=== PATIENT | female | born 1960 | race Caucasian/White ===

== ENCOUNTER 2016-07-28 18:59 | Emergency (ER) | payer MEDICAID, OTHER ==
[2016-07-28 19:07] VITALS: BP 146/67
--- NOTE | 2016-07-28 19:27 | ER Document Report ---
Addendum entered and electronically signed by BARRY PIERRE NP 07/28/16 19:27 : Course - Re-evaluation Re-evalutation: 07/28/16 19:27 I have greeted and performed a rapid initial assessment of this patient. A comprehensive ED assessment, evaluation of the patient, analysis of test results , and completion of the medical decision making process will be contacted by additional ED providers. - Vital Signs Vital signs: Temp Pulse Resp BP Pulse Ox 97.4 F 81 20 146/67 H 96 07/28/16 19:05 07/28/16 19:05 07/28/16 19:05 07/28/16 19:05 07/28/16 19:05 Original Note: ED Medical Screen (RME) - General Stated Complaint: SHOULDER PAIN,NECK PAIN Time seen by provider: 19:24 Mode of Arrival: Ambulatory Information source: Patient Notes: 56-year-old female with chronic neck and bilateral shoulder pain for 7 years is complaining that the pain is getting worse for 2 months. The pain is much worse today. It's her pain at home with ibuprofen. She can't take it anymore. She has been for her to [place] pain [facility] for this chronic pain but they won't take her because of her insurance. She was in the emergency department in May and May for pain treatment. [facility] is her PCP. TRAVEL OUTSIDE OF THE [place] IN LAST 30 DAYS: No - Related Data Allergies/Adverse Reactions: acetaminophen [From Tylenol] Adverse Reaction (Mild, Verified 05/13/16 23:52) Nausea Past Medical History - Past Medical History Cardiac Medical History: Reports: Hx Congestive Heart Failure, Hx Hypercholesterolemia, Hx Hypertension, Hx Pulmonary Embolism - Not with the last hospitalization. CT was negative. Pulmonary Medical History: Reports: Hx Bronchitis, Hx COPD, Hx Intubation, Hx Respiratory Failure Denies: Hx Asthma, Hx Tuberculosis Neurological Medical History: Reports: Hx Seizures Endocrine Medical History: Reports: Hx Diabetes Mellitus Type 1, Hx Diabetes Mellitus Type 2, Hx Hypothyroidism GI Medical History: Reports: Hx Gastroesophageal Reflux Disease Musculoskeltal Medical History: Reports Hx Musculoskeletal Trauma Psychiatric Medical History: Denies: Hx Depression Past Surgical History: Reports: Hx Appendectomy, Hx Coronary Stent, Hx Orthopedic Surgery - L 1st toe amputation, R ankle recon, R elbow pin, L rotator cuff, Hx Tonsillectomy, Other - Multiple I&D's, Colonoscopy. Denies: Hx Hysterectomy - Immunizations Hx Diphtheria, Pertussis, Tetanus Vaccination: Yes Physical Exam - Vital signs Vitals: Temp Pulse Resp BP Pulse Ox 97.4 F 81 20 146/67 H 96 07/28/16 19:05 07/28/16 19:05 07/28/16 19:05 07/28/16 19:05 07/28/16 19:05 Course - Vital Signs Vital signs: Temp Pulse Resp BP Pulse Ox 97.4 F 81 20 146/67 H 96 07/28/16 19:05 07/28/16 19:05 07/28/16 19:05 07/28/16 19:05 07/28/16 19:05
--- NOTE | 2016-07-28 21:32 | ER Document Report ---
HPI - HPI Patient complains to provider of: chronic shoulder pain Pain Level: 5 Context: 56-year-old female with chronic neck and bilateral shoulder pain for 7 years is complaining that the pain is getting worse for 2 months. The pain is much worse today. She has stopped taking OTC NSAIDS because they do not work but she has not been following up with [facility] for pain management while she gets new health insurance that will be accepted by [place] [facility] clinics. She has been for her to [place] [facility] for this chronic pain but they won't take her because of her insurance. She was in the emergency department in May and May for pain treatment. [facility] is her PCP. She is due to follow up with surgery for evaluation of rotator cuff repair bilaterally. No new injury or trauma Otherwise past medical history significant for high blood pressure and diabetes. - CARDIOVASCULAR Cardiovascular: DENIES: Chest pain - REPRODUCTIVE Reproductive: DENIES: : - DERM Skin Color: Normal Past Medical History - General Information source: Patient - Social History Smoking Status: Smoker,Current Status Unk Family History: Reviewed & Not Pertinent, CAD, DM, Hypertension - Past Medical History Cardiac Medical History: Reports: Hx Congestive Heart Failure, Hx Hypercholesterolemia, Hx Hypertension, Hx Pulmonary Embolism - Not with the last hospitalization. CT was negative. Pulmonary Medical History: Reports: Hx Bronchitis, Hx COPD, Hx Intubation, Hx Respiratory Failure Denies: Hx Asthma, Hx Tuberculosis Neurological Medical History: Reports: Hx Seizures Endocrine Medical History: Reports: Hx Diabetes Mellitus Type 1, Hx Diabetes Mellitus Type 2, Hx Hypothyroidism Renal/ Medical History: Denies: Hx Peritoneal Dialysis GI Medical History: Reports: Hx Gastroesophageal Reflux Disease Musculoskeltal Medical History: Reports Hx Musculoskeletal Trauma Psychiatric Medical History: Denies: Hx Depression Past Surgical History: Reports: Hx Appendectomy, Hx Coronary Stent, Hx Orthopedic Surgery - L 1st toe amputation, R ankle recon, R elbow pin, L rotator cuff, Hx Tonsillectomy, Other - Multiple I&D's, Colonoscopy. Denies: Hx Hysterectomy - Immunizations Hx Diphtheria, Pertussis, Tetanus Vaccination: Yes Vertical Provider Document - CONSTITUTIONAL Agree With Documented VS: Yes General Appearance: WD/WN, No Apparent Distress - INFECTION CONTROL TRAVEL OUTSIDE OF THE [place] IN LAST 30 DAYS: No - HEENT HEENT: Atraumatic, Normocephalic - RESPIRATORY O2 Sat by Pulse Oximetry: 96 - CARDIOVASCULAR Pulses: Normal: Radial - MUSCULOSKELETAL/EXTREMETIES Musculoskeletal/Extremeties: MAEW, Tender - Tense trapezius muscles bilaterally. Otherwise no evidence of tenderness to C-spine this process palpation, No Edema. negative: Edema, Eccymosis Notes: Has full range of motion of her neck. Limited range of motion of bilateral arms. The patient states that she has torn rotator cuff that she has yet to have operated on strength 5 out of 5 bilaterally. - NEURO Level of Consciousness: Awake, Alert, Appropriate Motor/Sensory: No Motor Deficit, No Sensory Deficit Course - Re-evaluation Re-evalutation: 07/28/16 22:52 Patient is a 56-year-old female who is becoming well-known to our emergency department from multiple visits for pain medications and she moved down here May. Patient currently is hemodynamically stable, no acute distress and afebrile. There is no new injury or trauma. Patient states that she has stopped taking [id number] medications because she feels like they do not work at all. She has not followed up with her primary care provider for other pain management options. Given that she does not have any new injury to the area no indication for additional imaging at this time. Patient educated on the benefit of nonsteroidal anti-inflammatory medications for the treatment of her joints and muscles. Encouraged her to follow up with [facility] for appropriate [facility]. - Vital Signs Vital signs: Temp Pulse Resp BP Pulse Ox 97.4 F 81 20 146/67 H 96 07/28/16 19:05 07/28/16 19:05 07/28/16 19:05 07/28/16 19:05 07/28/16 19:05 Discharge - Discharge Clinical Impression: Chronic neck and back pain Condition: Good Disposition: HOME, SELF-CARE Additional Instructions: LOW BACK PAIN: Three out of every four people will have an episode of disabling back pain during their lifetime. Most commonly the pain is due to straining of the muscles and ligaments in the low back. Usual treatment includes: (1) Rest on a firm surface. Avoid lying on your stomach. (2) Ice pack the painful area. After a few days, gentle heat may be used intermittently to relax the area, or ice packs can be continued. (3) Medication may be needed -- muscle relaxers and antiinflammatory medicines are commonly used. (4) As the back improves, exercises are prescribed to strengthen the back and abdominal muscles. Your doctor will advise you on the proper care for your back at each stage in your recovery. You may be better in a few days -- or healing may take several weeks. If new symptoms of a "herniated disc" (radiation of pain, numbness, or tingling down the back of the leg or weakness in the leg) occur, you should be re-examined. Further testing may be necessary. MUSCLE RELAXERS: Muscle relaxing medications are usually prescribed for acute muscle spasm or injury to the neck and back. They are often combined with antiinflammatory pain medication for increased relief. You may stop the muscle relaxer when the pain and stiffness have improved. Start the medication again if spasms recur. Muscle relaxers may cause drowsiness, especially with the first dose. Do not operate machinery or drive while under the effects of the medication. Most muscle relaxers last up to 24 hours. Do not combine the medication with alcohol. ICE PACKS: Apply ice packs frequently against the painful area. Many different schedules are recommended, such as "20 minutes on, 20 minutes off" or "one hour ice, two hours rest." If you need to work, you may need to go longer between ice treatments. You should plan to have the area ice packed AT LEAST one fourth of the time. The ice should be applied over the wrap, tape, or splint, or over a layer of cloth -- not directly against the skin. Some ice bags have a built-in cloth and can be put directly on the skin. WARM PACKS: After approximately two days, apply gentle heat (such as a heating pad or hot water bottle) for about 20 to 30 minutes about every two hours -- at least four times daily. Warmth and elevation will help you make a more rapid recovery , and will ease the pain considerably. Do not use HOT heat, and never apply heat for longer than 30 minutes. The continuous heat can invisibly damage skin and muscles -- even when no burn is seen on the surface. Damaged muscles can make you MORE sore. FOLLOW-UP CARE: If you have been referred to a physician for follow-up care, call the physician s office for an appointment as you were instructed or within the next two days. If you experience worsening or a significant change in your symptoms, notify the physician immediately or return to the Emergency Department at any time for re-evaluation. Prescriptions: Meloxicam [Mobic 15 mg Tablet] 15 mg PO DAILY #30 tablet Forms: Elevated Blood Pressure [facility] [NO [facility]AL MD] - Follow up as needed
== END 2016-07-28 21:32 | disposition home or self-care (01) ==
LOC: ER 18:59
DX: G89.29 Other chronic pain (principal); M54.2 Cervicalgia; M25.511 Pain in right shoulder; M25.512 Pain in left shoulder; M54.9 Dorsalgia, unspecified; I10 Essential (primary) hypertension; J44.9 Chronic obstructive pulmonary disease, unspecified; E11.9 Type 2 diabetes mellitus without complications; Z98.61 Coronary angioplasty status; Z86.711 Personal history of pulmonary embolism; Z98.890 Other specified postprocedural states
CPT/HCPCS: 99283

== ENCOUNTER 2016-09-30 00:48 | Observation (INO) | payer MEDICAID, OTHER ==
[2016-09-30] MEDS ORDERED: NORMAL SALINE 1000 ML 1,000 ML IV ONE (05:07)
[2016-09-30 05:52] LABS: ABSOLUTE BASOPHILS # (AUTO) 0.1 10^3/uL (0.0-0.2); ABSOLUTE EOSINOPHILS # (AUTO) 0.1 10^3/uL (0.0-0.6); ABSOLUTE LYMPHOCYTES (AUTO) 1.3 10^3/uL (0.5-4.7); ABSOLUTE MONOCYTES (AUTO) 0.5 10^3/uL (0.1-1.4); ABSOLUTE NEUT (AUTO) 7.1 10^3/uL (1.7-8.2); BASOPHILS % (AUTO) 0.7 % (0-2); HEMATOCRIT 36.1 % (36.0-47.0); HEMOGLOBIN 12.2 g/dL (12.0-15.5); HGB HCT DIFFERENCE 0.5; LYMPHOCYTES % (AUTO) 14.2 % (13-45); MEAN CORPUSCULAR HEMOGLOBIN 29.6 pg (27.0-33.4); MEAN CORPUSCULAR HGB CONC 33.7 g/dL (32.0-36.0); MEAN CORPUSCULAR VOLUME 88 fl (80-97); MONOCYTES % (AUTO) 5.1 % (3-13); RED BLOOD COUNT 4.11 10^6/uL (3.72-5.28); RED CELL DISTRIBUTION WIDTH 16.4 % (11.5-14.0)
[2016-09-30] MEDS ORDERED: MORPHINE SULFATE 10 MG/ML INJ IV ONE (05:53)
[2016-09-30] MEDS ORDERED: ONDANSETRON HCL INJ/PF 4 MG/2 ML SDV IV ONE (05:53)
[2016-09-30 05:58] LABS: PROTHROMBIN TIME 13.1 SEC (11.4-15.4)
[2016-09-30 06:15] LABS: ALANINE AMINOTRANSFERASE 50 U/L (9-52); ALBUMIN 3.6 g/dL (3.5-5.0); ALKALINE PHOSPHATASE 154 U/L (38-126); ANION GAP 15 (5-19); ASPARTATE AMINO TRANSFERASE 30 U/L (14-36); BILIRUBIN,DIRECT 0.3 mg/dL (0.0-0.4); BILIRUBIN,TOTAL 0.7 mg/dL (0.2-1.3); BLOOD UREA NITROGEN 15 mg/dL (7-20); CALCIUM 9.4 mg/dL (8.4-10.2); CARBON DIOXIDE 21 mmol/L (22-30); CHLORIDE 97 mmol/L (98-107); CREATININE RESULT 0.63 mg/dL (0.52-1.25); POTASSIUM 4.2 mmol/L (3.6-5.0); SODIUM 133.2 mmol/L (137-145); TOTAL PROTEIN 6.4 g/dL (6.3-8.2)
[2016-09-30 06:26] LABS: GLUCOSE 470 mg/dL (75-110)
[2016-09-30] MEDS ORDERED: INSULIN REG, HUMAN 100 UNIT/ML 3 ML VIAL (PYX) SUBCUT ONE (06:32)
--- NOTE | 2016-09-30 06:33 | ER Document Report ---
ED Skin Rash/Insect Bite/Abscs - General Chief Complaint: Abscess Stated Complaint: ABSCESS Mode of Arrival: Ambulatory Information source: Patient Notes: 56-year-old female presents to the emergency department complaining of tender swollen area to right suprapubic area over the last two days. Reports hx of abscesses with similar symptoms in the past. Denies fever, n/v, chest pain, sob. TRAVEL OUTSIDE OF THE [place] IN LAST 30 DAYS: No - HPI Patient complains to provider of: Tender/swollen area Onset/Duration: Gradual, Worse Quality of pain: Achy Severity: Moderate Pain Level: 3 Skin Character: Abscess, Erythema, Tenderness Skin Temperature: Warm Quality of rash: Painful Similar symptoms previously: Yes Recently seen / treated by doctor: No - Related Data Allergies/Adverse Reactions: acetaminophen [From Tylenol] Adverse Reaction (Mild, Verified 09/30/16 01:26) Nausea Past Medical History - General Information source: Patient - Social History Smoking Status: Smoker,Current Status Unk Frequency of alcohol use: Rare Drug Abuse: None Lives with: Family Family History: Reviewed & Not Pertinent, CAD, DM, Hypertension - Past Medical History Cardiac Medical History: Reports: Hx Congestive Heart Failure, Hx Hypercholesterolemia, Hx Hypertension, Hx Pulmonary Embolism Pulmonary Medical History: Reports: Hx Bronchitis, Hx COPD, Hx Intubation, Hx Respiratory Failure Denies: Hx Asthma, Hx Tuberculosis Neurological Medical History: Reports: Hx Seizures Endocrine Medical History: Reports: Hx Diabetes Mellitus Type 2, Hx Hypothyroidism Renal/ Medical History: Denies: Hx Peritoneal Dialysis GI Medical History: Reports: Hx Gastroesophageal Reflux Disease Musculoskeltal Medical History: Reports Hx Musculoskeletal Trauma Psychiatric Medical History: Denies: Hx Depression Past Surgical History: Reports: Hx Appendectomy, Hx Coronary Stent, Hx Orthopedic Surgery - L 1st toe amputation, R ankle recon, R elbow pin, L rotator cuff, Hx Tonsillectomy, Other - Multiple I&D's, Colonoscopy. Denies: Hx Hysterectomy - Immunizations Hx Diphtheria, Pertussis, Tetanus Vaccination: Yes Review of Systems - Review of Systems Constitutional: No symptoms reported EENT: No symptoms reported Cardiovascular: No symptoms reported Respiratory: No symptoms reported Gastrointestinal: No symptoms reported Genitourinary: No symptoms reported Female Genitourinary: No symptoms reported Musculoskeletal: No symptoms reported Skin: See HPI Hematologic/Lymphatic: No symptoms reported Neurological/Psychological: No symptoms reported -: Yes All other systems reviewed and negative Physical Exam - Vital signs Vitals: Temp Pulse Resp BP Pulse Ox 98.5 F 97 18 143/65 H 93 09/30/16 01:26 09/30/16 01:26 09/30/16 01:09/30/16 01:09/30/16 01:26 - General General appearance: Appears well, Alert In distress: None - HEENT Head: Normocephalic, Atraumatic Eyes: Normal Pupils: PERRL - Respiratory Respiratory status: No respiratory distress Chest status: Nontender Breath sounds: Normal Chest palpation: Normal - Cardiovascular Rhythm: Regular Heart sounds: Normal auscultation Murmur: No - Abdominal Inspection: Normal Distension: No distension Bowel sounds: Normal Tenderness: Nontender Organomegaly: No organomegaly - Genitourinary External exam: Other - pt has approximately 4 cm diameter raised area of erythema, warmth, and fluctuance to right lower suprapubic area extending to right upper vaginal labia. no drainage. - Back Back: Normal, Nontender - Neurological Neuro grossly intact: Yes Cognition: Normal Orientation: AAOx4 [place] Coma Scale Eye Opening: Spontaneous [place] Coma Scale Verbal: Oriented [place] Coma Scale Motor: Obeys Commands Jake Coma Scale Total: 15 Speech: Normal Motor strength normal: LUE, RUE, LLE, RLE Sensory: Normal - Skin Skin Temperature: Warm Skin Moisture: Dry Skin Color: Normal Course - Re-evaluation Re-evalutation: 09/30/16 05:35 Pt hemodynamically stable, in no distress, afebrile. Pt presentation and findings discussed with surgeon on-call Dr. Malin who evaluated patient in the ED and will take patient to OR for I&D later this morning. - Vital Signs Vital signs: Temp Pulse Resp BP Pulse Ox 98.5 F 97 18 143/65 H 93 09/30/16 01:26 09/30/16 01:26 09/30/16 01:26 09/30/16 01:26 09/30/16 01:26 - Laboratory Result Diagrams: 09/30/16 05:36 09/30/16 05:36 Laboratory results interpreted by me: 09/30/16 09/30/16 09/30/16 05:36 05:36 05:36 RDW 16.4 H Seg Neutrophils % 79.0 H APTT 23.0 L Sodium 133.2 L Chloride 97 L Carbon Dioxide 21 L Glucose 470 H* Alkaline Phosphatase 154 H Discharge - Discharge Clinical Impression: Abscess Condition: Stable Disposition: ADMITTED OBSERVATION Admitting Provider: Surgicalist - [facility] Admitted: OR
[2016-09-30] MEDS ORDERED: VANCOMYCIN HCL INJ 1000 MG VIAL IV ONE ×2 (06:35→06:36)
[2016-09-30 08:48] LABS: APPEARANCE,URINE CLEAR; BILIRUBIN,URINE NEGATIVE (NEGATIVE); GLUCOSE, URINE >=500 mg/dL (NEGATIVE); KETONES,URINE NEGATIVE (NEGATIVE); LEUKOCYTE ESTERASE,URINE NEGATIVE (NEGATIVE); NITRITE,URINE NEGATIVE (NEGATIVE); PROTEIN,URINE NEGATIVE (NEGATIVE); URINE SPECIFIC GRAVITY 1.031; UROBILINOGEN,URINE NEGATIVE mg/dL (<2.0)
[2016-09-30] MEDS ORDERED: LIDOCAINE 2% INJ-PF (20 MG/ML) 10 ML AMPUL ONE (09:50)
[2016-09-30] MEDS ORDERED: GLYCOPYRROLATE INJ 0.4 MG/2 ML VIAL ONE (09:50)
[2016-09-30] MEDS ORDERED: FAMOTIDINE INJ/PF 20 MG/2 ML SDV IV ONE (11:05)
[2016-09-30] MEDS ORDERED: METOCLOPRAMIDE HCL INJ/PF 10 MG/2 ML SDV ONE (11:05)
[2016-09-30] MEDS ORDERED: RINGERS SOLUTION,LACTATED 1,000 ML IV PRN (11:07)
[2016-09-30] MEDS ORDERED: ALBUTEROL SULFATE 0.083% NEB 2.5 MG/3 ML AMPUL NEB ONE (11:51)
[2016-09-30] MEDS ORDERED: MIDAZOLAM 2 MG/2 ML INJ ONE (12:21)
[2016-09-30] MEDS ORDERED: PROPOFOL INJ 200 MG/20 ML VIAL IV ONE (12:21)
[2016-09-30] MEDS ORDERED: FENTANYL CITRATE INJ/PF 100 MCG/2 ML AMPUL ONE (12:21)
[2016-09-30] MEDS ORDERED: LIDOCAINE 0.5% INJ-PF (5 MG/ML) 50 ML SDV ONE (12:32)
[2016-09-30] MEDS ORDERED: FENTANYL CITRATE INJ/PF 100 MCG/2 ML AMPUL IV PRN ×3 (12:33)
[2016-09-30] MEDS ORDERED: PROMETHAZINE HCL INJ 25 MG/1 ML VIAL IV PRN (12:33)
[2016-09-30] MEDS ORDERED: DIPHENHYDRAMINE HCL 50 MG/ML VIAL IV PRN (12:33)
--- NOTE | 2016-09-30 13:38 | OPERATIVE REPORT E ---
Operative Report NAME: JOSE R CANALES : 1960 AGE: 56Y DATE OF SURGERY: 09/30/2016 ROOM: ED42 PREOPERATIVE DIAGNOSIS: Abscess of the right pubic area. POSTOPERATIVE DIAGNOSIS: Abscess of the right pubic area. OPERATION: Incision and drainage of abscess of the right pubic area. INDICATIONS: This is a 56-year-old diabetic female who noted painful swelling of the right pubic area for the past 3 days. She then went to the emergency room where her blood sugar was noted to be elevated to over 400 and with an obvious abscess of the right pubic area. SURGEON: JAVIER ARRIAZA M.D. ANESTHESIA: MAC with 1% Xylocaine that is local. DESCRIPTION OF PROCEDURE: After adequate IV sedation, the patient was placed in supine position and the right pubic area prepped and draped in the usual sterile fashion. Local anesthesia with 1% Xylocaine was then infiltrated in the skin over the swollen area. An incision was made about 2 cm long, and pus extruded out. Specimens sent for C and S. A finger dissection of the cavity was then performed and further enlarged medially. The area was then irrigated with saline. It was subsequently packed with 1/2-inch Iodoform gauze. Sterile dressings over the incision site and over the Iodoform gauze. The patient tolerated procedure well. Estimated blood loss was minimal, and needle and sponge counts were all correct. DICTATING PHYSICIAN: JAVIER ARRIAZA M.D. [id number] PHY#: [id number] ID: [id number] JOB#: [id number] ACCT: [id number] cc:JAVIER ARRIAZA M.D. >
[2016-09-30 15:13] VITALS: BP 115/61
[2016-09-30] MEDS ORDERED: OXYCODONE HCL IR 5 MG TABLET PO PRN (15:38)
[2016-09-30] MEDS ORDERED: AMOXICILLIN TR/POT CLAVULANATE 500-125 MG TAB PO ONE (17:00)
--- NOTE | 2016-09-30 21:10 | EKG REPORT ---
SEVERITY:- OTHERWISE NORMAL ECG - SINUS RHYTHM LOW VOLTAGE IN FRONTAL LEADS : Confirmed by: Jennifer Hernandez MD 30-Sep-2016 21:09:30
[2016-09-30] MEDS ORDERED: AMOXICILLIN TR/POT CLAVULANATE 500-125 MG TAB PO SCH (22:00)
== END 2016-09-30 17:00 | disposition home or self-care (01) ==
LOC: ER 00:48 → INTOOBSV 07:20 → EH 07:20 → 2N 14:22
PROVIDERS: ADMIT Surgery; ATTEND Surgery
PROC: 0H9AXZZ Drainage of Inguinal Skin, External Approach (ICD-10-PCS; principal; 2016-09-30 12:30)
DX: L02.214 Cutaneous abscess of groin (principal); E11.9 Type 2 diabetes mellitus without complications; F17.200 Nicotine dependence, unspecified, uncomplicated; I11.0 Hypertensive heart disease with heart failure; I50.9 Heart failure, unspecified; J44.9 Chronic obstructive pulmonary disease, unspecified
CPT/HCPCS: 10060; 99284; 36415; 87040; 87070; 87205; 82962; 85025; 85610; 85730; 87075; 87077; 80053; 81001; 87186; 93005; 93010; G0378 ×2; J2250; J3010; J3490 ×3; J2765; J1815; J7030; J7120; J2704; J3370; S0028; 400

== ENCOUNTER 2016-10-04 16:30 | Inpatient (IN) | payer MEDICAID ==
[2016-10-04] MEDS ORDERED: IPRATROPIUM/ALBUTEROL 0.5-2.5 MG/3 ML AMPUL NEB PRN (17:13)
[2016-10-04] MEDS ORDERED: ONDANSETRON 4 MG TAB.RAPDIS PO PRN (17:13)
[2016-10-04] MEDS ORDERED: ONDANSETRON HCL INJ/PF 4 MG/2 ML SDV IV PRN (17:13)
[2016-10-04] MEDS ORDERED: DEXTROSE 40% GEL 15 GM TUBE PO PRN ×2 (17:22)
[2016-10-04] MEDS ORDERED: DEXTROSE 50%-WATER 25 GM/50 ML DISP.SYRIN IV PRN ×2 (17:22)
[2016-10-04] MEDS ORDERED: GLUCAGON,HUMAN RECOMB 1 MG INJ IM PRN (17:22)
[2016-10-04] MEDS ORDERED: VANCOMYCIN HCL 0 MG in DEXTROSE 5%-WATER 250 ML IV NR (17:30)
--- NOTE | 2016-10-04 17:47 | PDOC H&P ---
History of Present Illness Admission Date/PCP: 10/04/16 16:30 MIGNON ROQUE MD Patient complains of: Pain and redness in her panniculus History of Present Illness: JOSE R CANALES is a 56 year old female with a complicated past medical history including diabetes, congestive heart failure and chronic infections who presented to the surgical office today for follow-up after having an I&D of an abscess on her groin on Saturday. The patient has had some low-grade fevers but denies any chills. She has complaints of erythema involving her panniculus as well as her bilateral groin right greater than left. The patient reports she has significant amount of pain with this but denies any further drainage from her surgical wound site. The patient has a long history of panniculitis and has had multiple surgeries in the past for abscesses. The patient has been taking Augmentin as an outpatient and has been compliant with her medication. Patient reports that her blood sugars have been under adequate control. The patient denies any pain or swelling in her lower legs. 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 Past Medical History Cardiac Medical History: Reports: Congestive Heart Failure, Coronary Artery Disease, Hyperlipidema, Hypertension, Pulmonary Embolism Pulmonary Medical History: Reports: Bronchitis, Chronic Obstructive Pulmonary Disease (COPD), Intubation, Respiratory Failure Denies: Asthma, Tuberculosis Neurological Medical History: Reports: Seizures Endocrine Medical History: Reports: Diabetes Mellitus Type 2, Hypothyroidism Malignancy Medical History: Reports: None GI Medical History: Reports: Gastroesophageal Reflux Disease, Other - History GI bleeding Psychiatric Medical History: Reports: Depression Infectious Medical History: Reports: Methicillin-Resistant Staph Aureus, Vancomycin-Resistant Enterococci Past Surgical History Past Surgical History: Reports: Appendectomy, Coronary Stent, Orthopedic Surgery - L 1st toe amputation, R ankle recon, R elbow pin, L rotator cuff, Tonsillectomy, Other - Multiple I&D's, Colonoscopy, Flip filter placement Denies: Hysterectomy Social History Information Source: Patient Smoking Status: Current Every Day Smoker Frequency of Alcohol Use: None Hx Recreational Drug Use: No Drugs: None Hx Prescription Drug Abuse: No - Advance Directive Resuscitation Status: Full Code Family History Family History: CAD, DM, Hypertension Family History: Mother at age 67 and had diabetes and cancer. Father's health history is unknown. Parental Family History Reviewed: Yes Children Family History Reviewed: No Sibling(s) Family History Reviewed.: No Medication/Allergy Home Medications: Amox Tr/Potassium Clavulanate [Augmentin 250-125 Tablet] 1 tab PO 09/30/16 Oxycodone HCl 10 mg PO Q8 PRN 09/30/16 Allergies/Adverse Reactions: acetaminophen [From Tylenol] Adverse Reaction (Mild, Verified 09/30/16 01:26) Nausea Review of Systems Constitutional: ABSENT: chills, fever(s), headache(s), weight gain, weight loss Eyes: ABSENT: visual disturbances Ears: ABSENT: hearing changes Cardiovascular: ABSENT: chest pain, dyspnea on exertion, edema, orthropnea, palpitations Respiratory: ABSENT: cough, hemoptysis Gastrointestinal: PRESENT: abdominal pain - Pannus is tender to palpate. ABSENT : constipation, diarrhea, hematemesis, hematochezia, nausea, vomiting Genitourinary: ABSENT: dysuria, hematuria Musculoskeletal: PRESENT: back pain. ABSENT: joint swelling Integumentary: PRESENT: other - Patient has panniculus. She also has erythema and swelling in her bilateral groins right greater than left. Neurological: ABSENT: abnormal gait, abnormal speech, confusion, dizziness, focal weakness, syncope Psychiatric: ABSENT: depression Endocrine: ABSENT: cold intolerance, heat intolerance, polydipsia, polyuria Hematologic/Lymphatic: ABSENT: easy bleeding, easy bruising Physical Exam Vital Signs: Intake & Output 10/03/16 10/04/16 10/05/16 06:59 06:59 06:59 Weight 95 kg General appearance: PRESENT: no acute distress, morbidly obese Head exam: PRESENT: atraumatic, normocephalic Eye exam: PRESENT: conjunctiva pink, EOMI, PERRLA. ABSENT: scleral icterus Ear exam: PRESENT: bleeding Neck exam: ABSENT: carotid bruit, JVD, lymphadenopathy, thyromegaly Respiratory exam: PRESENT: clear to auscultation rozina. ABSENT: rales, rhonchi, wheezes Cardiovascular exam: PRESENT: RRR. ABSENT: diastolic murmur, rubs, systolic murmur Vascular exam: PRESENT: normal capillary refill GI/Abdominal exam: PRESENT: normal bowel sounds, soft. ABSENT: distended, guarding, mass, organolmegaly, rebound, tenderness Rectal exam: PRESENT: deferred Extremities exam: ABSENT: calf tenderness, clubbing, pedal edema Neurological exam: PRESENT: alert, awake, oriented to person, oriented to place , oriented to time, oriented to situation, CN II-XII grossly intact. ABSENT: motor sensory deficit Psychiatric exam: PRESENT: appropriate affect Skin exam: PRESENT: erythema - Over the pannus as well as bilateral groins., warm - Over the pannus and bilateral groins. Right greater than left. Assessment & Plan - Diagnosis (1) Panniculitis Is this a current diagnosis for this admission?: YesPlan: The patient has panniculitis along with groin infections. She had an I&D done on Saturday. Patient was sent home on Augmentin and follow-up today with the surgery clinic. She has not improved at all. She needs a longer term IV antibiotics. She has a history of MRSA. We will treat with Zosyn and vancomycin. The patient had an I&D of her right groin Saturday and we will consult surgery to see if any further workup needs to be done but most likely is just going to be IV antibiotics. (2) Cellulitis Is this a current diagnosis for this admission?: YesPlan: Patient cellulitis of the right groin and she will be seen by the surgeons. (3) Hypothyroidism Is this a current diagnosis for this admission?: YesPlan: We'll continue with her usual Synthroid dose of 88 g. (4) Hyperlipidemia Is this a current diagnosis for this admission?: YesPlan: she has been taking Zocor for this (5) Congestive heart failure Is this a current diagnosis for this admission?: YesPlan: The patient has a history of diastolic congestive heart failure. She appears to be euvolemic at this time. (6) Coronary artery disease Is this a current diagnosis for this admission?: YesPlan: She has a history of a cardiac stent in the past. She denies any chest pain. (7) Diabetes mellitus Is this a current diagnosis for this admission?: YesPlan: She normally takes 80 units of Lantus nightly and 20-30 units of Humalog before every meal. We'll continue with that as well as sliding scale insulin. (8) Gastroesophageal reflux disease Is this a current diagnosis for this admission?: YesPlan: Currently asymptomatic. (9) Depression Is this a current diagnosis for this admission?: YesPlan: Stable (10) Chronic pain Qualifiers: Chronic pain type: chronic pain syndrome Qualified Code(s): G89.4 - Chronic pain syndrome Is this a current diagnosis for this admission?: YesPlan: We'll continue with the oxycodone. (11) Morbid obesity Qualifiers: Obesity type: unspecified obesity type Qualified Code(s): E66.01 - Morbid (severe) obesity due to excess calories Is this a current diagnosis for this admission?: Yes (12) Pulmonary emboli Qualifiers: Chronicity: unspecified Acute cor pulmonale presence: without acute cor pulmonale Is this a current diagnosis for this admission?: YesPlan: Patient was taken off of her Coumadin after her last GI bleed. She has a [place] filter in place. She does not need any anticoagulation at this time. (13) Tinea Is this a current diagnosis for this admission?: YesPlan: We'll start the patient on Diflucan. - Time Time Spent: 50 to 70 Minutes - Inpatient Certification Medical Necessity: Need for IV Antibiotics - Plan Summary Plan Summary: The patient is a full code.
[2016-10-04] MEDS: INSULIN LISPRO 100 UNIT/ML 3 ML VIAL SUBCUT PRN ×2 (19:03→21:20)
[2016-10-04] MEDS: NORMAL SALINE 1000 ML 1,000 ML IV PRN (19:28)
[2016-10-04] MEDS: OXYCODONE HCL IR 5 MG TABLET PO PRN (19:42)
[2016-10-04] MEDS: FLUCONAZOLE 100 MG TABLET PO SCH (20:49)
[2016-10-04] MEDS: FAMOTIDINE 20 MG TABLET PO SCH (21:16)
[2016-10-04] MEDS: INSULIN GLARGINE,HUM.REC.ANLOG 300 UNIT/3 ML INSULN.PEN SUBCUT SCH (21:17)
[2016-10-04] MEDS: PIPERACILLIN SODIUM/TAZOBACTAM 3.375 GM in NORMAL SALINE 100 ML IV SCH (21:44)
[2016-10-04] MEDS: VANCOMYCIN HCL 1,500 MG in DEXTROSE 5%-WATER 250 ML IV SCH (22:29)
--- NOTE | 2016-10-04 22:42 | PDOC CONSULTATION ---
History of Present Illness Admission Date/PCP: 10/04/16 17:13 MIGNON ROQUE MD History of Present Illness: 56-year-old the diabetic patient who had the a right groin abscess incision and drainage procedure this past weekend. Patient noticed the in the ensuing days diffuse erythema over her pannus and bilateral groins. She has also noticed the increased swelling in the right groin with a firm oblong region of the swelling and pain. Patient has noticed a fever as well. Minimal drainage from her groin. Past Medical History Cardiac Medical History: Reports: Congestive Heart Failure, Coronary Artery Disease, Hyperlipidema, Hypertension, Pulmonary Embolism Pulmonary Medical History: Reports: Bronchitis, Chronic Obstructive Pulmonary Disease (COPD), Intubation, Respiratory Failure Denies: Asthma, Tuberculosis Neurological Medical History: Reports: Seizures Endocrine Medical History: Reports: Diabetes Mellitus Type 2, Hypothyroidism Malignancy Medical History: Reports: None GI Medical History: Reports: Gastroesophageal Reflux Disease, Other - History GI bleeding Psychiatric Medical History: Reports: Depression Infectious Medical History: Reports: Methicillin-Resistant Staph Aureus, Vancomycin-Resistant Enterococci Past Surgical History Past Surgical History: Reports: Appendectomy, Coronary Stent, Orthopedic Surgery - L 1st toe amputation, R ankle recon, R elbow pin, L rotator cuff, Tonsillectomy, Other - Multiple I&D's, Colonoscopy, Flip filter placement Denies: Hysterectomy Social History Smoking Status: Current Every Day Smoker Frequency of Alcohol Use: None Hx Recreational Drug Use: No Drugs: None Hx Prescription Drug Abuse: No - Advance Directive Resuscitation Status: Full Code Family History Family History: CAD, DM, Hypertension Parental Family History Reviewed: No Children Family History Reviewed: No Sibling(s) Family History Reviewed.: No Medication/Allergy Home Medications: Amox Tr/Potassium Clavulanate [Augmentin 250-125 Tablet] 1 tab PO 09/30/16 Oxycodone HCl 10 mg PO Q8 PRN 09/30/16 Allergies/Adverse Reactions: acetaminophen [From Tylenol] Adverse Reaction (Mild, Verified 09/30/16 01:26) Nausea Physical Exam Vital Signs: Temp Pulse Resp BP Pulse Ox 98.2 F 98 16 133/78 H 93 10/04/16 16:47 10/04/16 21:46 10/04/16 21:46 10/04/16 16:47 10/04/16 21:46 Intake & Output 10/03/16 10/04/1617 06:59 06:59 06:59 Weight 95 kg GI/Abdominal exam: PRESENT: other - Diffuse erythema across her lower pannus and bilateral groins most pronounced in the right groin with the sausage-shaped region of focal firm swelling with tenderness. There is a incision at the central aspect of this region of swelling. This wound was probed but patient refused more aggressive probing to try to ensure a pus pocket. No significant drainage with the probing of the wound. Assessment & Plan - Diagnosis (1) Cellulitis Is this a current diagnosis for this admission?: YesPlan: Mostly cellulitis of the pannus and bilateral groins. Her patient does have a focal region of firmness and tenderness of her right groin at the site of prior incision and drainage procedure. Uncertain whether she has a pus in this region. However she would benefit from opening this wound the wider to obtain better control of her infection. Patient is currently on broad-spectrum antibiotics. She has a history of VRE but her recent cultures grew out pansensitive staph aureus. It is still possible that she has another bug causing her cellulitis at this time. Patient refuses any bedside procedure. She just ate dinner. Will discuss her case with the oncoming surgeon tomorrow about the possibility of the incision and drainage of the right groin process in the operating room tomorrow. Will make the patient nothing by mouth post midnight.
[2016-10-05] MEDS: PIPERACILLIN SODIUM/TAZOBACTAM 3.375 GM in NORMAL SALINE 100 ML IV SCH ×4 (02:39→21:34)
[2016-10-05] MEDS: NORMAL SALINE 1000 ML 1,000 ML IV PRN (06:16)
[2016-10-05] MEDS ORDERED: INSULIN LISPRO 100 UNIT/ML 3 ML VIAL SUBCUT SCH (08:00)
[2016-10-05] MEDS ORDERED: LIDOCAINE 1% INJ-PF (10 MG/ML) 30 ML SDV ONE (08:36)
[2016-10-05] MEDS ORDERED: FENTANYL CITRATE INJ/PF 100 MCG/2 ML AMPUL ONE ×2 (08:39→10:17)
[2016-10-05] MEDS ORDERED: PROPOFOL INJ 200 MG/20 ML VIAL IV ONE (08:40)
[2016-10-05] MEDS ORDERED: MIDAZOLAM 2 MG/2 ML INJ ONE (08:40)
[2016-10-05] MEDS ORDERED: EPHEDRINE SULFATE INJ 50 MG/1 ML AMPULE ONE (08:40)
[2016-10-05] MEDS ORDERED: ACETAMINOPHEN 0 ML IV ONE (08:41)
[2016-10-05] MEDS ORDERED: ALBUTEROL SULFATE 0.083% NEB 2.5 MG/3 ML AMPUL NEB ONE (09:55)
[2016-10-05] MEDS ORDERED: MEPERIDINE HCL/PF INJ 25 MG/1 ML DISP.SYRIN IV PRN (09:59)
[2016-10-05] MEDS ORDERED: MORPHINE SULFATE 10 MG/ML INJ IV PRN (09:59)
[2016-10-05] MEDS ORDERED: DIPHENHYDRAMINE HCL 50 MG/ML VIAL IV PRN (09:59)
[2016-10-05] MEDS ORDERED: PROMETHAZINE HCL INJ 25 MG/1 ML VIAL IV PRN ×2 (09:59)
[2016-10-05] MEDS ORDERED: ONDANSETRON HCL INJ/PF 4 MG/2 ML SDV IV PRN (09:59)
[2016-10-05] MEDS ORDERED: OXYCODONE-ACETAMINOPHEN 5-325 MG TABLET PO PRN ×2 (09:59)
[2016-10-05] MEDS ORDERED: FENTANYL CITRATE INJ/PF 100 MCG/2 ML AMPUL IV PRN ×3 (09:59)
--- NOTE | 2016-10-05 10:12 | Operative Report ---
Operative Report DATE OF SURGERY: 10/05/16 PREOPERATIVE DIAGNOSIS: Panniculitis of the lower abdominal wall; incompletely drained right suprapubic soft tissue infection POSTOPERATIVE DIAGNOSIS: Same OPERATION: Excisional debridement of skin and subcutaneous tissue, irrigation of subcutaneous tissue, and packing of right suprapubic abdominal wall infection. Focused ultrasound of the lower abdominal wall SURGEON: RADHA HAAS ANESTHESIA: GA TISSUE REMOVED OR ALTERED: Nonviable skin and subcutaneous tissue COMPLICATIONS: None ESTIMATED BLOOD LOSS: 30 mL INTRAOPERATIVE FINDINGS: See below PROCEDURE: He was seen in the preoperative holding, then taken to the operating room where general anesthesia was induced. Legs were placed in stirrups position. Pannus and perineum prepped and draped in sterile fashion Surgical plan surgical time out conducted. Findings were significant for an erythematous panniculus centrally. There was no active drainage or focal mass effect. Variable frequency linear transducer was used to scan the intra-abdominal wall, focusing on the lower pannicular region. Findings were significant for a cutaneous edema, but no focal fluid collection worthy of drainage today. The right suprapubic incision previously made was bluntly opened, allowing access to the cutaneous space along the inguinal canal and extending down into the mons pubic region and towards the pubis in the midline. Loculations of nonviable fat broken up. She was consistent with staph aureus. The infection did not easily extend up to the pannus,therefore a counterincision or communicating tract was not opened up. The suprapubic cavity was irrigated with 2 L of saline, then packed with a three fourths Kerlix roll . PROCEDURE WELL, EXTUBATED TO RECOVERY IN STABLE CONDITION.
[2016-10-05] MEDS ORDERED: SUCCINYLCHOLINE CHLORIDE INJ 200 MG/10 ML VIAL ONE (10:32)
[2016-10-05] MEDS ORDERED: LIDOCAINE 2% INJ-PF (20 MG/ML) 10 ML AMPUL ONE (10:32)
[2016-10-05] MEDS: VANCOMYCIN HCL 1,500 MG in DEXTROSE 5%-WATER 250 ML IV SCH ×2 (11:14→22:40)
[2016-10-05] MEDS: FAMOTIDINE 20 MG TABLET PO SCH ×2 (11:16→21:54)
[2016-10-05] MEDS: OXYCODONE HCL IR 5 MG TABLET PO PRN ×2 (11:32→19:43)
[2016-10-05] MEDS: INSULIN LISPRO 100 UNIT/ML 3 ML VIAL SUBCUT PRN (12:18)
[2016-10-05] MEDS: INSULIN LISPRO 100 UNIT/ML 3 ML VIAL SUBCUT SCH ×2 (12:18→16:13)
[2016-10-05 13:47] LABS: ABSOLUTE EOSINOPHILS # (AUTO) 0.1 10^3/uL (0.0-0.6); ABSOLUTE MONOCYTES (AUTO) 0.4 10^3/uL (0.1-1.4); ABSOLUTE NEUT (AUTO) 6.1 10^3/uL (1.7-8.2); BASOPHILS % (AUTO) 0.5 % (0-2); HEMATOCRIT 33.7 % (36.0-47.0); HEMOGLOBIN 11.2 g/dL (12.0-15.5); HGB HCT DIFFERENCE -0.1; LYMPHOCYTES % (AUTO) 13.5 % (13-45); MEAN CORPUSCULAR HEMOGLOBIN 29.4 pg (27.0-33.4); MEAN CORPUSCULAR HGB CONC 33.1 g/dL (32.0-36.0); MEAN CORPUSCULAR VOLUME 89 fl (80-97); MONOCYTES % (AUTO) 5.2 % (3-13); RED BLOOD COUNT 3.79 10^6/uL (3.72-5.28); RED CELL DISTRIBUTION WIDTH 16.6 % (11.5-14.0); SEGMENTED NEUTROPHILS % (AUTO) 79.8 % (42-78); WHITE BLOOD COUNT 7.7 10^3/uL (4.0-10.5)
[2016-10-05 14:14] LABS: ALANINE AMINOTRANSFERASE 42 U/L (9-52); ALBUMIN 3.3 g/dL (3.5-5.0); ALKALINE PHOSPHATASE 123 U/L (38-126); ASPARTATE AMINO TRANSFERASE 21 U/L (14-36); BILIRUBIN,DIRECT 0.1 mg/dL (0.0-0.4); BILIRUBIN,TOTAL 0.3 mg/dL (0.2-1.3); BLOOD UREA NITROGEN 9 mg/dL (7-20); CALCIUM 8.3 mg/dL (8.4-10.2); CARBON DIOXIDE 23 mmol/L (22-30); CHLORIDE 102 mmol/L (98-107); CREATININE RESULT 0.62 mg/dL (0.52-1.25); GLUCOSE 378 mg/dL (75-110); POTASSIUM 4.2 mmol/L (3.6-5.0); TOTAL PROTEIN 5.7 g/dL (6.3-8.2)
[2016-10-05 14:23] LABS: ANION GAP 13 (5-19); SODIUM 138.3 mmol/L (137-145)
--- NOTE | 2016-10-05 16:48 | PDOC PROGRESS REPORT ---
Subjective Progress Note for:: 10/05/16 Subjective:: Patient is status post incision and drainage of lower abdominal wall abscess by surgery. Her pain is controlled. She does inquire about having IVC filter removed. Patient denies fever, chills, headache, new focal weakness, chest pain, shortness of breath, abdominal pain, nausea, vomiting, diarrhea, constipation. Physical Exam Vital Signs: Temp Pulse Resp BP Pulse Ox 97.6 F 79 21 H 104/52 L 96 10/05/16 15:57 10/05/16 15:57 10/05/16 15:57 10/05/16 15:57 10/05/16 15:57 Intake & Output 10/04/16 10/05/16 10/06/16 06:59 06:59 06:59 Intake Total 650 1000 Output Total 5 Balance 650 995 Weight 103.6 kg GENERAL: No acute distress HEENT: Conjunctiva clear, nonicteric, moist mucous membranes, no JVD, midline trachea RESPIRATORY: Clear to auscultation bilaterally, no wheezes, no rhonchi CARDIAC: Regular rate and rhythm, no murmurs/gallops/rubs ABDOMEN: Soft, nondistended, nontender, positive bowel sounds, no rebound, no guarding EXTREMETIES: No edema, cyanosis, clubbing NEUROLOGIC: Alert, oriented to person/place/time, CN's grossly intact, no focal deficits SKIN: Cellulitis of lower abdominal wall. Dressing intact and surgical site. PSYCH: Normal mood, normal affect Results Laboratory Results: 10/05/16 13:24 10/05/16 13:24 10/05/16 10/05/16 13:24 13:24 WBC 7.7 RBC 3.79 Hgb 11.2 L Hct 33.7 L MCV 89 MCH 29.4 MCHC 33.1 RDW 16.6 H Plt Count 251 Seg Neutrophils % 79.8 H Lymphocytes % 13.5 Monocytes % 5.2 Eosinophils % 1.0 Basophils % 0.5 Absolute Neutrophils 6.1 Absolute Lymphocytes 1.0 Absolute Monocytes 0.4 Absolute Eosinophils 0.1 Absolute Basophils 0.0 Sodium 138.3 Potassium 4.2 Chloride 102 Carbon Dioxide 23 Anion Gap 13 BUN 9 Creatinine 0.62 Est GFR ( Amer) > 60 Est GFR (Non-Af Amer) > 60 Glucose 378 H Calcium 8.3 L Total Bilirubin 0.3 AST 21 ALT 42 Alkaline Phosphatase 123 Total Protein 5.7 L Albumin 3.3 L Assessment & Plan - Diagnosis (1) Panniculitis Is this a current diagnosis for this admission?: YesPlan: Continue IV vancomycin and IV Zosyn. Patient is status post incision and drainage by surgery on 10/05/2016. Awaiting cultures. (2) History of pulmonary embolism Is this a current diagnosis for this admission?: YesPlan: Patient is not currently on anticoagulation. She has an IVC filter in place and would like to be referred as an outpatient to somebody to have this removed. (3) Congestive heart failure Qualifiers: Congestive heart failure type: diastolic Congestive heart failure chronicity: chronic Qualified Code(s): I50.32 - Chronic diastolic ( congestive) heart failure Is this a current diagnosis for this admission?: YesPlan: Patient has chronic compensated diastolic dysfunction. Start Coreg 3.125 mg twice daily. (4) Coronary artery disease Is this a current diagnosis for this admission?: Yes (5) Diabetes mellitus Is this a current diagnosis for this admission?: YesPlan: Continue outpatient dose of Lantus, Humalog. (6) Hypothyroidism Is this a current diagnosis for this admission?: YesPlan: Continue outpatient dose of Synthroid. (7) Obesity (BMI 30-39.9) Is this a current diagnosis for this admission?: Yes - Time Time Spent with patient: 35 or more minutes Anticipated discharge: Home Within: within 72 hours Disposition: Patient would like to establish care with a primary care provider after discharge. She is currently seeing various providers at [facility].
[2016-10-05] MEDS: FLUCONAZOLE 100 MG TABLET PO SCH (18:20)
[2016-10-05] MEDS: SIMVASTATIN 10 MG TABLET PO SCH (21:53)
[2016-10-05] MEDS: CARVEDILOL 3.125 MG TABLET PO SCH (21:54)
[2016-10-05] MEDS: GABAPENTIN 300 MG CAPSULE PO SCH (21:54)
[2016-10-05] MEDS: INSULIN GLARGINE,HUM.REC.ANLOG 300 UNIT/3 ML INSULN.PEN SUBCUT SCH (21:57)
[2016-10-06] MEDS: PIPERACILLIN SODIUM/TAZOBACTAM 3.375 GM in NORMAL SALINE 100 ML IV SCH ×4 (04:17→21:46)
[2016-10-06] MEDS: OXYCODONE HCL IR 5 MG TABLET PO PRN ×2 (04:45→12:19)
[2016-10-06] MEDS: NORMAL SALINE 1000 ML 1,000 ML IV PRN ×2 (05:29→23:38)
[2016-10-06] MEDS: INSULIN LISPRO 100 UNIT/ML 3 ML VIAL SUBCUT PRN (06:07)
[2016-10-06] MEDS: GABAPENTIN 300 MG CAPSULE PO SCH ×3 (06:07→21:36)
[2016-10-06] MEDS ORDERED: INSULIN GLARGINE,HUM.REC.ANLOG 300 UNIT/3 ML INSULN.PEN SUBCUT SCH ×2 (07:25→10:00)
[2016-10-06 07:49] LABS: ABSOLUTE EOSINOPHILS # (AUTO) 0.1 10^3/uL (0.0-0.6); ABSOLUTE LYMPHOCYTES (AUTO) 0.9 10^3/uL (0.5-4.7); ABSOLUTE MONOCYTES (AUTO) 0.5 10^3/uL (0.1-1.4); ABSOLUTE NEUT (AUTO) 5.4 10^3/uL (1.7-8.2); BASOPHILS % (AUTO) 0.4 % (0-2); EOSINOPHILS % (AUTO) 2.1 % (0-6); HEMATOCRIT 32.4 % (36.0-47.0); HEMOGLOBIN 10.5 g/dL (12.0-15.5); HGB HCT DIFFERENCE -0.9; LYMPHOCYTES % (AUTO) 12.9 % (13-45); MEAN CORPUSCULAR HEMOGLOBIN 28.8 pg (27.0-33.4); MEAN CORPUSCULAR HGB CONC 32.5 g/dL (32.0-36.0); MEAN CORPUSCULAR VOLUME 89 fl (80-97); MONOCYTES % (AUTO) 7.3 % (3-13); RED BLOOD COUNT 3.65 10^6/uL (3.72-5.28); RED CELL DISTRIBUTION WIDTH 16.1 % (11.5-14.0); SEGMENTED NEUTROPHILS % (AUTO) 77.3 % (42-78); WHITE BLOOD COUNT 6.9 10^3/uL (4.0-10.5)
[2016-10-06] MEDS: INSULIN LISPRO 100 UNIT/ML 3 ML VIAL SUBCUT SCH ×3 (07:57→16:29)
[2016-10-06] MEDS: LEVOTHYROXINE SODIUM 0.088 MG TABLET PO SCH (07:58)
[2016-10-06 08:09] LABS: ANION GAP 9 (5-19); BLOOD UREA NITROGEN 7 mg/dL (7-20); CALCIUM 8.1 mg/dL (8.4-10.2); CARBON DIOXIDE 25 mmol/L (22-30); CHLORIDE 104 mmol/L (98-107); CREATININE RESULT 0.56 mg/dL (0.52-1.25); GLUCOSE 234 mg/dL (75-110); POTASSIUM 4.1 mmol/L (3.6-5.0)
--- NOTE | 2016-10-06 08:53 | PDOC PROGRESS REPORT ---
Subjective Progress Note for:: 10/06/16 Subjective:: pain lower abdomen Physical Exam Vital Signs: Temp Pulse Resp BP Pulse Ox 98.8 F 80 17 109/48 L 84 L 10/06/16 03:58 10/06/16 03:58 10/06/16 03:58 10/06/16 03:58 10/06/16 03:58 Intake & Output 10/05/16 10/06/16 10/07/16 06:59 06:59 06:59 Intake Total 650 5514 Output Total 5 Balance 650 5509 Weight 103.6 kg 104.8 kg GI/Abdominal exam: PRESENT: other - Lower abdominal wall cellulitis Wound clean dressings applied Results Laboratory Results: 10/06/16 07:27 10/06/16 07:27 10/05/16 10/05/16 10/06/16 13:24 13:24 07:27 WBC 7.7 6.9 RBC 3.79 3.65 L Hgb 11.2 L 10.5 L Hct 33.7 L 32.4 L MCV 89 89 MCH 29.4 28.8 MCHC 33.1 32.5 RDW 16.6 H 16.1 H Plt Count 251 243 Seg Neutrophils % 79.8 H 77.3 Lymphocytes % 13.5 12.9 L Monocytes % 5.2 7.3 Eosinophils % 1.0 2.1 Basophils % 0.5 0.4 Absolute Neutrophils 6.1 5.4 Absolute Lymphocytes 1.0 0.9 Absolute Monocytes 0.4 0.5 Absolute Eosinophils 0.1 0.1 Absolute Basophils 0.0 0.0 Sodium 138.3 Potassium 4.2 Chloride 102 Carbon Dioxide 23 Anion Gap 13 BUN 9 Creatinine 0.62 Est GFR ( Amer) > 60 Est GFR (Non-Af Amer) > 60 Glucose 378 H Calcium 8.3 L Total Bilirubin 0.3 AST 21 ALT 42 Alkaline Phosphatase 123 Total Protein 5.7 L Albumin 3.3 L 10/06/16 07:27 WBC RBC Hgb Hct MCV MCH MCHC RDW Plt Count Seg Neutrophils % Lymphocytes % Monocytes % Eosinophils % Basophils % Absolute Neutrophils Absolute Lymphocytes Absolute Monocytes Absolute Eosinophils Absolute Basophils Sodium 138.0 Potassium 4.1 Chloride 104 Carbon Dioxide 25 Anion Gap 9 BUN 7 Creatinine 0.56 Est GFR ( Amer) > 60 Est GFR (Non-Af Amer) > 60 Glucose 234 H Calcium 8.1 L Total Bilirubin AST ALT Alkaline Phosphatase Total Protein Albumin
[2016-10-06] MEDS: FAMOTIDINE 20 MG TABLET PO SCH ×2 (09:57→21:36)
[2016-10-06] MEDS ORDERED: (PENDING PHARMACY ID) (Fenofibrate [Lofibra] 160 MG) PO SCH (10:00)
[2016-10-06] MEDS: CARVEDILOL 3.125 MG TABLET PO SCH ×2 (10:15→21:36)
[2016-10-06] MEDS: VANCOMYCIN HCL 1,500 MG in DEXTROSE 5%-WATER 250 ML IV SCH (11:15)
--- NOTE | 2016-10-06 15:17 | PDOC PROGRESS REPORT ---
Subjective Progress Note for:: 10/06/16 Subjective:: Patient is hyperglycemic. Her pain is controlled. Patient denies fever, chills, headache, new focal weakness, chest pain, shortness of breath, abdominal pain, nausea, vomiting, diarrhea, constipation. Physical Exam Vital Signs: Temp Pulse Resp BP Pulse Ox 98.3 F 71 16 101/50 L 94 10/06/16 11:30 10/06/16 12:01 10/06/16 12:01 10/06/16 11:30 10/06/16 12:01 Intake & Output 10/05/16 10/06/16 10/07/16 06:59 06:59 06:59 Intake Total 650 5514 Output Total 5 Balance 650 5509 Weight 103.6 kg 104.8 kg GENERAL: No acute distress HEENT: Conjunctiva clear, nonicteric, moist mucous membranes, no JVD, midline trachea RESPIRATORY: Clear to auscultation bilaterally, no wheezes, no rhonchi CARDIAC: Regular rate and rhythm, no murmurs/gallops/rubs ABDOMEN: Soft, nondistended, nontender, positive bowel sounds, no rebound, no guarding EXTREMETIES: No edema, cyanosis, clubbing NEUROLOGIC: Alert, oriented to person/place/time, CN's grossly intact, no focal deficits SKIN: Cellulitis of lower abdominal wall. Dressing intact and surgical site. PSYCH: Normal mood, normal affect Results Laboratory Results: 10/06/16 07:27 10/06/16 07:27 10/06/16 10/06/16 07:27 07:27 WBC 6.9 RBC 3.65 L Hgb 10.5 L Hct 32.4 L MCV 89 MCH 28.8 MCHC 32.5 RDW 16.1 H Plt Count 243 Seg Neutrophils % 77.3 Lymphocytes % 12.9 L Monocytes % 7.3 Eosinophils % 2.1 Basophils % 0.4 Absolute Neutrophils 5.4 Absolute Lymphocytes 0.9 Absolute Monocytes 0.5 Absolute Eosinophils 0.1 Absolute Basophils 0.0 Sodium 138.0 Potassium 4.1 Chloride 104 Carbon Dioxide 25 Anion Gap 9 BUN 7 Creatinine 0.56 Est GFR ( Amer) > 60 Est GFR (Non-Af Amer) > 60 Glucose 234 H Calcium 8.1 L Assessment & Plan - Diagnosis (1) Panniculitis Is this a current diagnosis for this admission?: YesPlan: Continue IV vancomycin and IV Zosyn. Patient is status post incision and drainage by surgery on 10/05/2016. Awaiting cultures. (2) History of pulmonary embolism Is this a current diagnosis for this admission?: YesPlan: Patient is not currently on anticoagulation. She has an IVC filter in place and would like to be referred as an outpatient to somebody to have this removed. I will refer her to Dr. Castañeda of vascular surgery in [facility]. (3) Congestive heart failure Qualifiers: Congestive heart failure type: diastolic Congestive heart failure chronicity: chronic Qualified Code(s): I50.32 - Chronic diastolic ( congestive) heart failure Is this a current diagnosis for this admission?: YesPlan: Patient has chronic compensated diastolic dysfunction. Started Coreg 3.125 mg twice daily. (4) Coronary artery disease Is this a current diagnosis for this admission?: Yes (5) Diabetes mellitus Is this a current diagnosis for this admission?: YesPlan: Increase Lantus to 50 units subcutaneous twice daily. Continue Humalog 20 units subcutaneous daily at bedtime he. Continue sliding scale insulin when necessary. Hemoglobin A1c 12.6 indicating poor outpatient control. (6) Hypothyroidism Is this a current diagnosis for this admission?: YesPlan: Continue outpatient dose of Synthroid. (7) Obesity (BMI 30-39.9) Is this a current diagnosis for this admission?: Yes - Time Time Spent with patient: 35 or more minutes Disposition: Patient would like to establish care with a primary care provider after discharge. She is currently seeing various providers at [facility].
[2016-10-06] MEDS: VANCOMYCIN HCL 1,250 MG in DEXTROSE 5%-WATER 250 ML IV SCH (18:11)
[2016-10-06] MEDS: FLUCONAZOLE 100 MG TABLET PO SCH (19:53)
[2016-10-06] MEDS ORDERED: PIPERACILLIN/TAZOBACTAM 3.375 GM VIAL IV ONE (21:23)
[2016-10-06] MEDS: SIMVASTATIN 10 MG TABLET PO SCH (21:35)
[2016-10-07] MEDS: VANCOMYCIN HCL 1,250 MG in DEXTROSE 5%-WATER 250 ML IV SCH ×3 (01:22→20:23)
[2016-10-07] MEDS ORDERED: PIPERACILLIN/TAZOBACTAM 3.375 GM VIAL IV ONE (02:06)
[2016-10-07] MEDS: PIPERACILLIN SODIUM/TAZOBACTAM 3.375 GM in NORMAL SALINE 100 ML IV SCH ×3 (02:25→15:32)
[2016-10-07] MEDS: GABAPENTIN 300 MG CAPSULE PO SCH ×3 (06:13→21:40)
[2016-10-07] MEDS: INSULIN LISPRO 100 UNIT/ML 3 ML VIAL SUBCUT PRN ×5 (06:51→22:30)
[2016-10-07] MEDS ORDERED: INSULIN GLARGINE,HUM.REC.ANLOG 300 UNIT/3 ML INSULN.PEN SUBCUT SCH (07:12)
[2016-10-07] MEDS: INSULIN LISPRO 100 UNIT/ML 3 ML VIAL SUBCUT SCH ×3 (08:25→16:32)
[2016-10-07] MEDS: LEVOTHYROXINE SODIUM 0.088 MG TABLET PO SCH (08:27)
[2016-10-07] MEDS: OXYCODONE HCL IR 5 MG TABLET PO PRN ×2 (09:43→20:04)
[2016-10-07] MEDS: CARVEDILOL 3.125 MG TABLET PO SCH ×2 (10:34→21:40)
[2016-10-07] MEDS: FAMOTIDINE 20 MG TABLET PO SCH ×2 (10:35→21:39)
[2016-10-07] MEDS: INSULIN GLARGINE,HUM.REC.ANLOG 300 UNIT/3 ML INSULN.PEN SUBCUT SCH ×2 (11:09→22:29)
--- NOTE | 2016-10-07 13:20 | PDOC PROGRESS REPORT ---
Subjective Progress Note for:: 10/07/16 Subjective:: Nursing reports that patient took out her packing and flaccid on the toilet. Patient states that the packing fell out. Patient denies fever, chills, headache , new focal weakness, chest pain, shortness of breath, abdominal pain, nausea, vomiting, diarrhea, constipation. Physical Exam Vital Signs: Temp Pulse Resp BP Pulse Ox 98.1 F 64 16 113/66 94 10/07/16 11:41 10/07/16 11:48 10/07/16 11:48 10/07/16 11:41 10/07/16 11:48 Intake & Output 10/06/16 10/07/16 10/08/16 06:59 06:59 06:59 Intake Total 5514 1000 Output Total 5 Balance 5509 1000 Weight 104.8 kg 104.9 kg GENERAL: No acute distress, obese HEENT: Conjunctiva clear, nonicteric, moist mucous membranes, no JVD, midline trachea RESPIRATORY: Clear to auscultation bilaterally, no wheezes, no rhonchi CARDIAC: Regular rate and rhythm, no murmurs/gallops/rubs ABDOMEN: Soft, nondistended, nontender, positive bowel sounds, no rebound, no guarding EXTREMETIES: No edema, cyanosis, clubbing NEUROLOGIC: Alert, oriented to person/place/time, CN's grossly intact, no focal deficits SKIN: Cellulitis of lower abdominal wall improving. Dressing at surgical site with purulent drainage. PSYCH: Normal mood, normal affect Results Laboratory Results: 10/06/16 07:27 10/06/16 07:27 Assessment & Plan - Diagnosis (1) Panniculitis Is this a current diagnosis for this admission?: YesPlan: Continue IV vancomycin and IV Zosyn for 1-2 more days prior to converting to oral antibiotic. Patient is status post incision and drainage by surgery on 12/2016. Blood cultures negative. Wound culture not sent at time of incision and drainage. (2) History of pulmonary embolism Is this a current diagnosis for this admission?: YesPlan: Patient is not currently on anticoagulation. She has an IVC filter in place and would like to be referred as an outpatient to somebody to have this removed. I will refer her to Dr. Castañeda of vascular surgery in [facility], [place]. (3) Congestive heart failure Qualifiers: Congestive heart failure type: diastolic Congestive heart failure chronicity: chronic Qualified Code(s): I50.32 - Chronic diastolic ( congestive) heart failure Is this a current diagnosis for this admission?: YesPlan: Patient has chronic compensated diastolic dysfunction. Started Coreg 3.125 mg twice daily this admission. (4) Coronary artery disease Is this a current diagnosis for this admission?: YesPlan: Start aspirin 81 mg daily. Continue Coreg. Check lipid panel in the morning and consider statin therapy. (5) Diabetes mellitus Is this a current diagnosis for this admission?: YesPlan: Increase Lantus to 60 units subcutaneous twice daily. Continue Humalog 20 units subcutaneous daily at bedtime. Continue sliding scale insulin when necessary. Hemoglobin A1c 12.6 indicating poor outpatient control. (6) Hypothyroidism Is this a current diagnosis for this admission?: YesPlan: Continue outpatient dose of Synthroid. (7) Obesity (BMI 30-39.9) Is this a current diagnosis for this admission?: Yes (8) DVT prophylaxis Is this a current diagnosis for this admission?: YesPlan: Lovenox - Time Time Spent with patient: 35 or more minutes
[2016-10-07] MEDS: NORMAL SALINE 1000 ML 1,000 ML IV PRN (13:39)
--- NOTE | 2016-10-07 14:22 | PDOC PROGRESS REPORT ---
Subjective Progress Note for:: 10/07/16 Subjective:: Pain better Physical Exam Vital Signs: Temp Pulse Resp BP Pulse Ox 98.1 F 64 16 113/66 94 10/07/16 11:41 10/07/16 11:48 10/07/16 11:48 10/07/16 11:41 10/07/16 11:48 Intake & Output 10/06/16 10/07/16 10/08/16 06:59 06:59 06:59 Intake Total 5514 1000 Output Total 5 Balance 5509 1000 Weight 104.8 kg 104.9 kg GI/Abdominal exam: PRESENT: other - Abdominal wound - clean minimal drainage Cellulitis resoving May DC with wound care - wet to dry dressings Follow up in surgery clinic 2 weeks Results Laboratory Results: 10/06/16 07:27 10/06/16 07:27
[2016-10-07 18:06] LABS: CREATININE RESULT 1.39 mg/dL (0.52-1.25)
[2016-10-07] MEDS: SIMVASTATIN 10 MG TABLET PO SCH (21:39)
[2016-10-07] MEDS: FLUCONAZOLE 100 MG TABLET PO SCH (21:40)
[2016-10-08] MEDS: PIPERACILLIN SODIUM/TAZOBACTAM 3.375 GM in NORMAL SALINE 100 ML IV SCH ×2 (01:00→03:25)
[2016-10-08] MEDS: VANCOMYCIN HCL 1,250 MG in DEXTROSE 5%-WATER 250 ML IV SCH (03:25)
[2016-10-08] MEDS: GABAPENTIN 300 MG CAPSULE PO SCH (06:15)
[2016-10-08 07:32] LABS: CHOLESTEROL 112.41 mg/dL (0-200); Direct HDL 25 mg/dL (>40); TRIGLYCERIDES 201 mg/dL (<150)
[2016-10-08 07:42] LABS: DIRECT LDL 54 mg/dL (<100)
[2016-10-08 07:47] LABS: VLDL CHOLESTEROL 40.2 mg/dL (10-31)
[2016-10-08] MEDS ORDERED: FENOFIBRATE NANOCRYSTALLIZED 145 MG TABLET PO SCH (08:00)
[2016-10-08] MEDS ORDERED: ENOXAPARIN SODIUM INJ 40 MG/0.4 ML DISP.SYRIN SUBCUT SCH (08:00)
[2016-10-08] MEDS: INSULIN LISPRO 100 UNIT/ML 3 ML VIAL SUBCUT SCH ×2 (08:01→12:05)
--- NOTE | 2016-10-08 08:38 | PDOC PROGRESS REPORT ---
Subjective Progress Note for:: 10/08/16 Subjective:: Patient remains committed to the bed; she is very cantankerous. Physical Exam Vital Signs: Temp Pulse Resp BP Pulse Ox 98.4 F 64 20 105/50 L 98 10/08/16 07:58 10/08/16 07:58 10/08/16 07:58 10/08/16 07:58 10/08/16 07:58 Intake & Output 10/07/16 10/08/16 10/09/16 06:59 06:59 06:59 Intake Total 1000 720 Balance 1000 720 Weight 104.9 kg 107.27 kg General appearance: PRESENT: no acute distress GI/Abdominal exam: PRESENT: other - Abdominal wall erythema and edema reduced; right suprapubic wound cavity cleaned and repacked Results Laboratory Results: 10/06/16 07:27 10/07/16 17:30 10/07/16 10/08/16 17:30 07:11 Creatinine 1.39 H Est GFR ( Amer) 47 L Est GFR (Non-Af Amer) 39 L Triglycerides 201 H Cholesterol 112.41 LDL Cholesterol Direct 54 VLDL Cholesterol 40.2 H HDL Cholesterol 25 L Assessment & Plan - Diagnosis (1) Panniculitis Is this a current diagnosis for this admission?: YesPlan: 1. Continued improvement right lower quadrant wound closing by secondary intention; panniculitis resolved. 2. Patient can be discharged home on oral antibiotics, dressing changes, likely with the assistance of home health. 3. Patient can follow-up with [facility] for maintenance of groin wound as it closes
[2016-10-08] MEDS ORDERED: ASPIRIN 81 MG TABLET, ENT COATED PO SCH (10:00)
[2016-10-08] MEDS: LEVOTHYROXINE SODIUM 0.088 MG TABLET PO SCH (10:42)
[2016-10-08] MEDS: INSULIN GLARGINE,HUM.REC.ANLOG 300 UNIT/3 ML INSULN.PEN SUBCUT SCH (10:42)
[2016-10-08] MEDS: FAMOTIDINE 20 MG TABLET PO SCH (10:43)
[2016-10-08] MEDS: OXYCODONE HCL IR 5 MG TABLET PO PRN (10:44)
[2016-10-08] MEDS: CARVEDILOL 3.125 MG TABLET PO SCH (11:02)
[2016-10-08] MEDS ORDERED: CLINDAMYCIN HCL 150 MG CAPSULE PO SCH (12:00)
[2016-10-08 12:30] VITALS: BP 117/64
--- NOTE | 2016-10-08 17:51 | PDOC DISCHARGE SUMMARY ---
General - Admit/Disc Date/PCP Admission Date/Primary Care Provider: MIGNON ROQUE MD Discharge Date: 10/08/16 - Discharge Diagnosis (1) Panniculitis Is this a current diagnosis for this admission?: YesSummary: Patient presented with abdominal wall cellulitis/abscess. She underwent incision and drainage by Dr. Ayoub of surgery. She was initially on IV vancomycin and IV Zosyn. She has been transitioned to oral clindamycin upon discharge. Blood cultures are negative. She will follow-up at the wound clinic. We will arrange home health services for wound care. She is advised to try and maintain better control of her glucose. (2) Hypothyroidism Is this a current diagnosis for this admission?: Yes (3) Congestive heart failure Is this a current diagnosis for this admission?: Yes (4) Coronary artery disease Is this a current diagnosis for this admission?: Yes (5) Diabetes mellitus Is this a current diagnosis for this admission?: YesSummary: Patient's hemoglobin A1c of 12.6 indicates poor outpatient control. Lantus has been increased from 80 units subcutaneous nightly to 60 units subcutaneous twice daily. Continue sliding scale NovoLog coverage. I will refer patient to endocrinology as an outpatient. (6) History of pulmonary embolism Is this a current diagnosis for this admission?: YesSummary: Patient has IVC filter in place. She does not take chronic anticoagulation. She is interested in having IVC filter removed. She will be referred to Dr. Castañeda of vascular surgery in [facility]. - Additional Information Home Medications: Albuterol Sulfate [Proair HFA Inhalation Aerosol 8.5 gm MDI] 2 puff IH Q4 Cholecalciferol (Vitamin D3) [Vitamin D3] 50,000 units PO TH 10/05/16 Fenofibrate [Lofibra] 160 mg PO DAILY 10/05/16 Gabapentin [Neurontin 300 mg Capsule] 300 mg PO TID 10/05/16 Levothyroxine Sodium [Synthroid] 88 mcg PO DAILY 10/05/16 Simvastatin [Zocor 20 mg Tablet] 20 mg PO QPM 10/05/16 Aspirin [Ecotrin 81 mg EC Tablet] 81 mg PO DAILY tabec 10/08/16 Clindamycin HCl [Cleocin HCl] 300 mg PO Q6H #40 capsule 10/08/16 Insulin Aspart [Novolog Flexpen] 0 unit SUBCUT .SLD SCALE #10 pen 10/08/16 Insulin Glargine,Hum.rec.anlog [Lantus Insulin 100 Unit/mL] 60 unit SUBCUT Q12 # 10 insuln.pen 10/08/16 Oxycodone HCl [Oxy-Ir 5 mg Tablet] 10 mg PO Q6HP PRN #20 tablet 10/08/16 History of Present Illness Patient complains of: Abdominal redness History of Present Illness: JOSE R CANALES is a 56 year old female with a complicated past medical history including diabetes, congestive heart failure and chronic infections who presented to the surgical office today for follow-up after having an I&D of an abscess on her groin on Saturday. The patient has had some low-grade fevers but denies any chills. She has complaints of erythema involving her panniculus as well as her bilateral groin right greater than left. The patient reports she has significant amount of pain with this but denies any further drainage from her surgical wound site. The patient has a long history of panniculitis and has had multiple surgeries in the past for abscesses. The patient has been taking Augmentin as an outpatient and has been compliant with her medication. Patient reports that her blood sugars have been under adequate control. The patient denies any pain or swelling in her lower legs. 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 Hospital Course Hospital Course: See above Physical Exam Vital Signs: GENERAL: No acute distress, obese HEENT: Conjunctiva clear, nonicteric, moist mucous membranes, no JVD, midline trachea RESPIRATORY: Clear to auscultation bilaterally, no wheezes, no rhonchi CARDIAC: Regular rate and rhythm, no murmurs/gallops/rubs ABDOMEN: Soft, nondistended, nontender, positive bowel sounds, no rebound, no guarding EXTREMETIES: No edema, cyanosis, clubbing NEUROLOGIC: Alert, oriented to person/place/time, CN's grossly intact, no focal deficits SKIN: Cellulitis of lower abdominal wall improving. Dressing at surgical site with purulent drainage. PSYCH: Normal mood, normal affect Qualifiers PATEINT BEING DISCHARGED WITH ANY OF THE FOLLOWING DIAGNOSIS?: No Plan Time Spent: Less than 30 Minutes
== END 2016-10-08 14:05 | disposition home health service (06) | DRG 571 ==
LOC: 2N 16:30 → UNDOADMIN 16:30 → 2N 17:13 → 2S 10-07 19:03
PROVIDERS: ADMIT Internal Medicine; ATTEND Internal Medicine
PROC: 0JB80ZZ Excision of Abdomen Subcutaneous Tissue and Fascia, Open Approach (ICD-10-PCS; principal; 2016-10-04)
DX: L03.311 Cellulitis of abdominal wall (principal); I50.32 Chronic diastolic (congestive) heart failure; Z68.41 Body mass index [BMI] 40.0-44.9, adult; I11.0 Hypertensive heart disease with heart failure; I25.10 Atherosclerotic heart disease of native coronary artery without angina pectoris; J44.9 Chronic obstructive pulmonary disease, unspecified; E03.9 Hypothyroidism, unspecified; E65 Localized adiposity; E11.9 Type 2 diabetes mellitus without complications; K21.9 Gastro-esophageal reflux disease without esophagitis; L02.214 Cutaneous abscess of groin; E78.5 Hyperlipidemia, unspecified; G89.4 Chronic pain syndrome; E66.01 Morbid (severe) obesity due to excess calories; B35.9 Dermatophytosis, unspecified; B95.61 Methicillin susceptible Staphylococcus aureus infection as the cause of diseases classified elsewhere; F17.200 Nicotine dependence, unspecified, uncomplicated; Z86.14 Personal history of Methicillin resistant Staphylococcus aureus infection; Z95.828 Presence of other vascular implants and grafts; Z86.711 Personal history of pulmonary embolism; Z90.49 Acquired absence of other specified parts of digestive tract; Z95.5 Presence of coronary angioplasty implant and graft; Z89.412 Acquired absence of left great toe; Z82.49 Family history of ischemic heart disease and other diseases of the circulatory system; Z83.3 Family history of diabetes mellitus; Z88.6 Allergy status to analgesic agent; Z79.4 Long term (current) use of insulin
CPT/HCPCS: 36415; 800; 80048; 80053; 80061; 80202; 82565; 82962; 83036; 85025; 87040; J0131; J0330; J1650; J1815; J2250; J2543; J2704; J3010; J3370; J3490; J7030; J7060; J7620

== ENCOUNTER 2016-10-22 06:10 | Emergency (ER) | payer MEDICAID ==
--- NOTE | 2016-10-22 07:03 | ER Document Report ---
ED Respiratory Problem - General Mode of Arrival: Ambulatory Information source: Patient TRAVEL OUTSIDE OF THE [place] IN LAST 30 DAYS: No - HPI Patient complains to provider of: Cough Onset: Other - 10/09/2016 Duration: Continuous Context: Hx CHF, Hx COPD, Smoker Associated symptoms: Cough - Nonproductive, Short of breath Worsened by: exertion <HEATHER ESTES - Last Filed: 10/22/16 06:56> <SCARLET SPAIN - Last Filed: 10/22/16 10:51> - General Chief Complaint: Cough Stated Complaint: DIFFICULTY BREATHING Notes: Patient is a 56-year-old female presenting to the emergency department with chief complaint of nonproductive cough onset 10/09/2016. Patient states that she breathes at baseline while resting, but becomes short of breath when she walks. Patient also states that she is been having some nausea, vomiting and diarrhea, but her breathing is the main problem. Patient also states that while she was here on October 05, she had her abscess I&D and needs the packing changed, as she has run out of packing at home. Patient states that she was instructed to change the packing daily, but it has been 4 days since it was last changed. Patient's primary care physician is Dr. Castro, who she last saw 10/08/2016, and she states that she has an appointment with him at the beginning of October. (HEATHER ESTES) - Related Data Allergies/Adverse Reactions: acetaminophen [From Tylenol] Adverse Reaction (Mild, Verified 10/22/16 06:13) Nausea Past Medical History - General Information source: Patient, COUNT INCLUDES THE [facility] Records - Social History Smoking Status: Current Every Day Smoker Frequency of alcohol use: None Drug Abuse: None Family History: Reviewed & Not Pertinent, CAD, DM, Hypertension Patient has suicidal ideation: No Patient has homicidal ideation: No - Past Medical History Cardiac Medical History: Reports: Hx Congestive Heart Failure, Hx Coronary Artery Disease, Hx Hypercholesterolemia, Hx Hypertension, Hx Pulmonary Embolism Pulmonary Medical History: Reports: Hx Asthma, Hx Bronchitis, Hx COPD, Hx Pneumonia, Hx Intubation, Hx Respiratory Failure Neurological Medical History: Reports: Hx Seizures Endocrine Medical History: Reports: Hx Diabetes Mellitus Type 2, Hx Hypothyroidism GI Medical History: Reports: Hx Gastroesophageal Reflux Disease Musculoskeltal Medical History: Reports Hx Musculoskeletal Trauma Psychiatric Medical History: Reports: Hx Depression Infectious Medical History: Reports: Hx MRSA, Hx VRE Past Surgical History: Reports: Hx Appendectomy, Hx Coronary Stent, Hx Orthopedic Surgery - L 1st toe amputation, R ankle recon, R elbow pin, L rotator cuff, Hx Tonsillectomy, Other - Multiple I&D's, Colonoscopy, Flip filter placement - Immunizations Hx Diphtheria, Pertussis, Tetanus Vaccination: Yes <HEATHER ESTES - Last Filed: 10/22/16 06:56> Review of Systems - Review of Systems Constitutional: No symptoms reported EENT: No symptoms reported Cardiovascular: No symptoms reported Respiratory: See HPI, Cough, Short of breath. denies: Sputum Gastrointestinal: See HPI, Diarrhea, Nausea, Vomiting Genitourinary: No symptoms reported Female Genitourinary: No symptoms reported Musculoskeletal: No symptoms reported Skin: See HPI, Other - Packing change needed on lower abdomen from prior I and D Hematologic/Lymphatic: No symptoms reported Neurological/Psychological: No symptoms reported <HEATHER ESTES - Last Filed: 10/22/16 06:56> Physical Exam - General General appearance: Alert - HEENT Head: Normocephalic, Atraumatic Eyes: Normal Pupils: PERRL - Respiratory Respiratory status: No respiratory distress Breath sounds: Nonproductive cough, Rhonchi, Wheezing - Faint, Other - Coarse breath sounds bilaterally - Cardiovascular Rhythm: Regular Heart sounds: Normal auscultation Murmur: No - Abdominal Inspection: Obese Distension: No distension Bowel sounds: Normal Tenderness: Nontender Organomegaly: No organomegaly - Back Back: Normal, Nontender - Extremities General upper extremity: Normal inspection, Nontender General lower extremity: Normal inspection, Nontender - Neurological Neuro grossly intact: Yes Cognition: Normal Orientation: AAOx4 Jake Coma Scale Eye Opening: Spontaneous Dodge Coma Scale Verbal: Oriented Jake Coma Scale Motor: Obeys Commands Jake Coma Scale Total: 15 - Psychological Associated symptoms: Normal affect, Normal mood - Skin Skin Temperature: Warm Skin Moisture: Dry <HEATHER ESTES - Last Filed: 10/22/16 06:56> <SCARLET SPAIN - Last Filed: 10/22/16 10:51> - Vital signs Vitals: Temp Pulse Resp BP Pulse Ox 98.3 F 88 22 H 151/62 H 96 10/22/16 06:13 10/22/16 06:13 10/22/16 06:13 10/22/16 06:13 10/22/16 06:13 - General Notes: Strong cigarette odor (HEATHER ESTES) Course - Laboratory Result Diagrams: 10/22/16 09:06 10/22/16 07:21 <SCARLET SPAIN - Last Filed: 10/22/16 10:51> - Vital Signs Vital signs: Temp Pulse Resp BP Pulse Ox 97.9 F 75 22 H 136/68 H 94 10/22/16 07:41 10/22/16 07:41 10/22/16 07:41 10/22/16 07:41 10/22/16 07:41 - Laboratory Laboratory results interpreted by me: 10/22/16 10/22/16 07:21 09:06 RDW 16.4 H Sodium 136.5 L Carbon Dioxide 21 L BUN 22 H Glucose 548 H* Magnesium 1.2 L* AST 37 H Alkaline Phosphatase 141 H Discharge <HEATHER ESTES - Last Filed: 10/22/16 06:56> <SCARLET SPAIN - Last Filed: 10/22/16 10:51> - Discharge Clinical Impression: Bronchitis, Non-productive cough, Hypomagnesemia, Nausea, vomiting and diarrhea Hyperglycemia due to type 2 diabetes mellitus Qualifiers: Diabetes mellitus intermediate frame tender insulin use: unspecified intermediate frame tender insulin use status Qualified Code(s): E11.65 - Type 2 diabetes mellitus with hyperglycemia Condition: Stable Disposition: HOME, SELF-CARE Additional Instructions: Your blood sugar was quite high today, your magnesium levels were quite low. You should drink more water. Be sure to check your sugars and use the sliding scale insulin. Take medications as prescribed and to build a few magnesium levels. Follow-up with Dr. Castro in the office. Prescriptions: Magnesium Oxide [Mag-Ox 400 mg Tablet] 400 mg PO DAILY #30 tablet Promethazine HCl [Phenergan 25 mg Tablet] 25 mg PO Q4 PRN #15 tablet PRN Reason: For Nausea/Vomiting Referrals: AC CASTRO MD [Primary Care Provider] - Follow up in 1 week Scribe Attestation: 10/22/16 10:51 I personally performed the services described in the documentation, reviewed and edited the documentation which was dictated to the scribe in my presence, and it accurately records my words and actions. (SCARLET SPAIN) Scribe Documentation - Scribe Written by Migue:: Heather Estes 10/22/2016 [id number] acting as scribe for :: Renetta <HEATHER ESTES - Last Filed: 10/22/16 06:56>
[2016-10-22 07:53] LABS: ALANINE AMINOTRANSFERASE 49 U/L (9-52); ALBUMIN 4.1 g/dL (3.5-5.0); ALKALINE PHOSPHATASE 141 U/L (38-126); ANION GAP 16 (5-19); ASPARTATE AMINO TRANSFERASE 37 U/L (14-36); BILIRUBIN,DIRECT 0.4 mg/dL (0.0-0.4); BILIRUBIN,TOTAL 0.6 mg/dL (0.2-1.3); BLOOD UREA NITROGEN 22 mg/dL (7-20); CALCIUM 9.4 mg/dL (8.4-10.2); CARBON DIOXIDE 21 mmol/L (22-30); CHLORIDE 100 mmol/L (98-107); CREATININE RESULT 0.89 mg/dL (0.52-1.25); POTASSIUM 4.8 mmol/L (3.6-5.0); SODIUM 136.5 mmol/L (137-145)
[2016-10-22 07:54] LABS: TOTAL PROTEIN 7.5 g/dL (6.3-8.2)
[2016-10-22 08:17] LABS: GLUCOSE 548 mg/dL (75-110); MAGNESIUM 1.2 mg/dL (1.6-2.3)
[2016-10-22] MEDS ORDERED: INSULIN REG, HUMAN 100 UNIT/ML 3 ML VIAL (PYX) IV ONE (08:43)
[2016-10-22] MEDS ORDERED: MAGNESIUM SULFATE INJ 8 MEQ/2 ML IV ONE (08:43)
[2016-10-22 09:18] LABS: ABSOLUTE BASOPHILS # (AUTO) 0.1 10^3/uL (0.0-0.2); ABSOLUTE EOSINOPHILS # (AUTO) 0.2 10^3/uL (0.0-0.6); ABSOLUTE LYMPHOCYTES (AUTO) 1.5 10^3/uL (0.5-4.7); ABSOLUTE MONOCYTES (AUTO) 0.5 10^3/uL (0.1-1.4); ABSOLUTE NEUT (AUTO) 5.7 10^3/uL (1.7-8.2); EOSINOPHILS % (AUTO) 2.1 % (0-6); HEMATOCRIT 37.3 % (36.0-47.0); HEMOGLOBIN 12.2 g/dL (12.0-15.5); HGB HCT DIFFERENCE -0.7; LYMPHOCYTES % (AUTO) 18.6 % (13-45); MEAN CORPUSCULAR HEMOGLOBIN 28.6 pg (27.0-33.4); MEAN CORPUSCULAR HGB CONC 32.7 g/dL (32.0-36.0); MEAN CORPUSCULAR VOLUME 87 fl (80-97); MONOCYTES % (AUTO) 6.5 % (3-13); RED BLOOD COUNT 4.27 10^6/uL (3.72-5.28); RED CELL DISTRIBUTION WIDTH 16.4 % (11.5-14.0); SEGMENTED NEUTROPHILS % (AUTO) 71.8 % (42-78)
[2016-10-22] MEDS ORDERED: IPRATROPIUM/ALBUTEROL 0.5-2.5 MG/3 ML AMPUL NEB ONE (09:26)
[2016-10-22 10:49] LABS: APPEARANCE,URINE CLEAR; BILIRUBIN,URINE NEGATIVE (NEGATIVE); GLUCOSE, URINE >=500 mg/dL (NEGATIVE); KETONES,URINE NEGATIVE (NEGATIVE); LEUKOCYTE ESTERASE,URINE NEGATIVE (NEGATIVE); NITRITE,URINE NEGATIVE (NEGATIVE); PROTEIN,URINE NEGATIVE (NEGATIVE); URINE SPECIFIC GRAVITY 1.018; UROBILINOGEN,URINE NEGATIVE mg/dL (<2.0)
[2016-10-22 11:00] VITALS: BP 140/63
--- NOTE | 2016-10-23 13:28 | HISTORY AND PHYSICAL E ---
History and Physical NAME: JOSE R CANALES : 1960 AGE: 56Y ADMITTED: 10/22/2016 ROOM: CHIEF COMPLAINT: Pains along the right pubic area for the past 3 days. HISTORY OF PRESENT ILLNESS: This is a 56-year-old female complaining of pains and tenderness along the right suprapubic area over the last 3 days. She claims she had similar abscesses in the past. She denies any fever, nausea, vomiting, chest pains, or shortness of breath. No travel outside of the [place] in the last 30 days. She has been complaining of moderately severe pains along the right suprapubic area. ALLERGIES: ACETAMINOPHEN. SOCIAL HISTORY: Smoker, current status unknown. Alcohol use, rare. Drug abuse none. Lives with family. FAMILY HISTORY: Noncontributory. NEUROLOGIC MEDICAL HISTORY: History of seizures. Endocrine revealed diabetes mellitus, type 2, and hypothyroidism. Genitourinary: Denies history of peritoneal dialysis. Gastrointestinal: History of GERD. Musculoskeletal: Reports history of musculoskeletal trauma. Psychiatric: Denies depression. PAST MEDICAL HISTORY: 1. History of CHF. 2. Hypercholesterolemia. 3. Hypertension. 4. Pulmonary embolism. 5. History of bronchitis and COPD, and respiratory failure with intubation. PAST SURGICAL HISTORY: 1. Appendectomy. 2. Coronary stenting. 3. Orthopedic surgery: Left first toe amputation, right ankle reconstruction, right elbow pinning, left rotator cuff surgery. 4. Tonsillectomy. 5. Multiple I and Ds. 6. Colonoscopy. IMMUNIZATIONS: Had diphtheria, pertussis, and tetanus vaccinations. REVIEW OF SYSTEMS: CONSTITUTIONAL: No constitutional symptoms reported. ENT: No ear, eyes, nose, or throat discomfort. CARDIOVASCULAR: No chest pains. RESPIRATORY: No shortness of breath. GASTROINTESTINAL: No abdominal pains. GENITOURINARY: No dysuria. MUSCULOSKELETAL: No joint pains at this time. SKIN: As in HPI. HEMATOLOGIC/LYMPHATIC: No symptoms reported. NEUROLOGIC/PSYCHOLOGICAL: No symptoms reported. All other systems reviewed and negative. PHYSICAL EXAMINATION: VITAL SIGNS: Temperature of 98.5 degrees, pulse 97 per minute, respiratory rate 18 per minute, blood pressure 143/65, and O2 saturation is 93%. GENERAL: Appears well, alert and oriented, in no apparent acute distress. HEENT: Pupils equal and reactive to light. Head is normocephalic. NECK: Supple. LUNGS: No respiratory distress. Normal breath sounds. HEART: Regular rate and rhythm. No murmur. ABDOMEN: Abdominal inspection is normal, no distention, normal bowel sounds, nontender, and no organomegaly. GENITOURINARY: Patient has approximately a 4 cm diameter raised area of erythema, warmth, and fluctuance in the right lower suprapubic area, extending close to the right upper vaginal labia, but no drainage. BACK: Nontender. NEUROLOGIC: Grossly intact. Alert and oriented x3. Jake coma scale is 15. Speech is normal. Motor and sensory function in all extremities are normal. SKIN: Temperature is warm and dry. Skin color is normal. IMPRESSION: Abscess of the right suprapubic area. PLANS: Patient to OR for incision and drainage of the abscess. DICTATING PHYSICIAN: JAVIER ARRIAZA M.D. [id number] PHY#: [id number] ID: [id number] JOB#: [id number] ACCT: [id number] cc:AC HARRINGTON M.D. >
== END 2016-10-22 11:02 | disposition home or self-care (01) ==
LOC: ER 06:10
DX: J40 Bronchitis, not specified as acute or chronic (principal); R05 Cough; E83.42 Hypomagnesemia; R11.2 Nausea with vomiting, unspecified; R19.7 Diarrhea, unspecified; L02.211 Cutaneous abscess of abdominal wall; Z48.01 Encounter for change or removal of surgical wound dressing; E11.65 Type 2 diabetes mellitus with hyperglycemia; I50.9 Heart failure, unspecified; I25.10 Atherosclerotic heart disease of native coronary artery without angina pectoris; E78.00 Pure hypercholesterolemia, unspecified; I11.0 Hypertensive heart disease with heart failure; J44.9 Chronic obstructive pulmonary disease, unspecified; E11.9 Type 2 diabetes mellitus without complications; E03.9 Hypothyroidism, unspecified; Z86.711 Personal history of pulmonary embolism; Z86.14 Personal history of Methicillin resistant Staphylococcus aureus infection
CPT/HCPCS: 94640; 99284; 36415; 83735; 85025; 80053; 81001; 71020; J3475; J1815; J7620

== ENCOUNTER → 2016-11-12 | Outpatient (CLI) | payer MEDICAID ==
[2016-11-12 15:16] LABS: ANION GAP 14 (5-19); BLOOD UREA NITROGEN 18 mg/dL (7-20); CALCIUM 10.1 mg/dL (8.4-10.2); CARBON DIOXIDE 26 mmol/L (22-30); CHLORIDE 101 mmol/L (98-107); CREATININE RESULT 0.75 mg/dL (0.52-1.25); GLUCOSE 214 mg/dL (75-110); POTASSIUM 4.4 mmol/L (3.6-5.0); SODIUM 140.5 mmol/L (137-145)
== END ==
LOC: OD 14:22
PROVIDERS: ATTEND Physician Assistant Surgical
DX: Z01.812 Encounter for preprocedural laboratory examination (principal); I70.90 Unspecified atherosclerosis; I10 Essential (primary) hypertension
CPT/HCPCS: 36415; 80048; 85379

== ENCOUNTER 2016-11-21 20:08 | Emergency (ER) | payer MEDICAID ==
[2016-11-21 20:16] VITALS: BP 149/77
--- NOTE | 2016-11-21 20:40 | ER Document Report ---
ED Medical Screen (RME) - General Chief Complaint: Fever Stated Complaint: FEVER Time Seen by Provider: 11/21/16 20:36 Notes: Patient is here because she is not feeling well, running a fever, oxygen level is low, some vomiting, and initially a dry cough which is now become slightly productive. Patient has a history of COPD and has a pulse oximeter and oxygen at home. Over the last couple of days her oxygen level has dropped down into the low 80s, 80% and 82%. She had a temperature of 100.6 and saw her private doctor (Matthew) in his office Saturday. Patient has a Flip filter and it was felt to not be necessary anymore and her vascular surgeon in length and attempted to remove it , but was unable to do so. Patient says that he was pulling at her blood vessels quite hard and she eventually had to ask him to stop. TRAVEL OUTSIDE OF THE [place] IN LAST 30 DAYS: No - Related Data Allergies/Adverse Reactions: acetaminophen [From Tylenol] Adverse Reaction (Mild, Verified 10/22/16 06:13) Nausea Past Medical History - Past Medical History Cardiac Medical History: Reports: Hx Congestive Heart Failure, Hx Coronary Artery Disease, Hx Hypercholesterolemia, Hx Hypertension, Hx Pulmonary Embolism Pulmonary Medical History: Reports: Hx Asthma, Hx Bronchitis, Hx COPD, Hx Pneumonia, Hx Intubation, Hx Respiratory Failure Neurological Medical History: Reports: Hx Seizures Endocrine Medical History: Reports: Hx Diabetes Mellitus Type 2, Hx Hypothyroidism Renal/ Medical History: Denies: Hx Peritoneal Dialysis GI Medical History: Reports: Hx Gastroesophageal Reflux Disease Musculoskeltal Medical History: Reports Hx Musculoskeletal Trauma Psychiatric Medical History: Reports: Hx Depression Infectious Medical History: Reports: Hx MRSA, Hx VRE Past Surgical History: Reports: Hx Appendectomy, Hx Coronary Stent, Hx Orthopedic Surgery - L 1st toe amputation, R ankle recon, R elbow pin, L rotator cuff, Hx Tonsillectomy, Other - Multiple I&D's, Colonoscopy, [place] filter placement - Immunizations Hx Diphtheria, Pertussis, Tetanus Vaccination: Yes Physical Exam - Vital signs Vitals: Temp Pulse Resp BP Pulse Ox 98.4 F 80 20 149/77 H 94 11/21/16 20:11 11/21/16 20:11 11/21/16 20:11 11/21/16 20:11 11/21/16 20:11 Course - Vital Signs Vital signs: Temp Pulse Resp BP Pulse Ox 98.4 F 80 20 149/77 H 94 11/21/16 20:11 11/21/16 20:11 11/21/16 20:11 11/21/16 20:11 11/21/16 20:11
[2016-11-21 21:03] LABS: APPEARANCE,URINE CLEAR; BILIRUBIN,URINE NEGATIVE (NEGATIVE); GLUCOSE, URINE >=500 mg/dL (NEGATIVE); KETONES,URINE NEGATIVE (NEGATIVE); LEUKOCYTE ESTERASE,URINE NEGATIVE (NEGATIVE); NITRITE,URINE NEGATIVE (NEGATIVE); PROTEIN,URINE NEGATIVE (NEGATIVE); URINE SPECIFIC GRAVITY 1.029; UROBILINOGEN,URINE NEGATIVE mg/dL (<2.0)
[2016-11-21 21:04] LABS: ABSOLUTE EOSINOPHILS # (AUTO) 0.1 10^3/uL (0.0-0.6); ABSOLUTE LYMPHOCYTES (AUTO) 1.3 10^3/uL (0.5-4.7); ABSOLUTE MONOCYTES (AUTO) 0.4 10^3/uL (0.1-1.4); ABSOLUTE NEUT (AUTO) 5.4 10^3/uL (1.7-8.2); BASOPHILS % (AUTO) 0.4 % (0-2); EOSINOPHILS % (AUTO) 1.6 % (0-6); HEMATOCRIT 39.1 % (36.0-47.0); HEMOGLOBIN 12.8 g/dL (12.0-15.5); HGB HCT DIFFERENCE -0.7; LYMPHOCYTES % (AUTO) 17.5 % (13-45); MEAN CORPUSCULAR HEMOGLOBIN 28.7 pg (27.0-33.4); MEAN CORPUSCULAR HGB CONC 32.8 g/dL (32.0-36.0); MEAN CORPUSCULAR VOLUME 88 fl (80-97); MONOCYTES % (AUTO) 5.9 % (3-13); RED BLOOD COUNT 4.46 10^6/uL (3.72-5.28); SEGMENTED NEUTROPHILS % (AUTO) 74.6 % (42-78); WHITE BLOOD COUNT 7.3 10^3/uL (4.0-10.5)
[2016-11-21 21:11] LABS: ALANINE AMINOTRANSFERASE 40 U/L (9-52); ALKALINE PHOSPHATASE 123 U/L (38-126); ANION GAP 12 (5-19); ASPARTATE AMINO TRANSFERASE 28 U/L (14-36); BILIRUBIN,DIRECT 0.4 mg/dL (0.0-0.4); BILIRUBIN,TOTAL 0.6 mg/dL (0.2-1.3); BLOOD UREA NITROGEN 15 mg/dL (7-20); CALCIUM 9.9 mg/dL (8.4-10.2); CARBON DIOXIDE 26 mmol/L (22-30); CHLORIDE 96 mmol/L (98-107); CREATININE RESULT 0.79 mg/dL (0.52-1.25); POTASSIUM 4.3 mmol/L (3.6-5.0); SODIUM 133.9 mmol/L (137-145); TOTAL PROTEIN 7.2 g/dL (6.3-8.2)
--- NOTE | 2016-11-21 21:11 | RADIOLOGY REPORT (SQ) ---
EXAM DESCRIPTION: CHEST PA/LAT COMPLETED DATE/TIME: 11/21/2016 8:51 pm REASON FOR STUDY: COPD, congestion, low oxygen. COMPARISON: 10/22/2016 EXAM PARAMETERS: NUMBER OF VIEWS: two views TECHNIQUE: Digital Frontal and Lateral radiographic views of the chest acquired. RADIATION DOSE: NA LIMITATIONS: none FINDINGS: LUNGS AND PLEURA: No opacities, masses or pneumothorax. No pleural effusion. MEDIASTINUM AND HILAR STRUCTURES: No masses or contour abnormalities. HEART AND VASCULAR STRUCTURES: Heart normal size. No evidence for failure. BONES: No acute findings. HARDWARE: None in the chest. OTHER: No other significant finding. IMPRESSION: NO SIGNIFICANT RADIOGRAPHIC FINDING IN THE CHEST. TECHNICAL DOCUMENTATION: JOB ID: [id number] [employer]- All Rights Reserved
[2016-11-21 21:23] LABS: GLUCOSE 550 mg/dL (75-110)
[2016-11-21] MEDS ORDERED: INSULIN LISPRO 100 UNIT/ML 3 ML VIAL SUBCUT ONE (21:29)
[2016-11-21] MEDS ORDERED: DOXYCYCLINE HYCLATE 100 MG TABLET PO ONE (21:29)
[2016-11-21] MEDS ORDERED: MORPHINE SULFATE IR 15 MG TABLET PO ONE (21:38)
--- NOTE | 2016-11-21 21:42 | ER Document Report ---
ED General - General Chief Complaint: Fever Stated Complaint: FEVER Time Seen by Provider: 11/21/16 20:36 Notes: Patient is a 56-year-old female with past medical history of COPD, hypertension , poorly controlled diabetes who presents with concerns of possible hypoxemia at home, increased cough and shortness of breath progressively worsened over the last 2 days. States this feels similar to when she has had mild COPD exacerbations in the past. States that she has had a fever up to 106.1F at home but states "my thermometer would not work today so maybe it was broken". She has not seen her primary care doctor regarding today's concerns. Nothing seems to improve or worsen her symptoms. Patient also reports that she has diffuse rib pain from persistent coughing and is requesting something for pain control. No history of DVT or pulmonary embolus. She denies any pleuritic pain. No hemoptysis or estrogen use. TRAVEL OUTSIDE OF THE [place] IN LAST 30 DAYS: No - Related Data Allergies/Adverse Reactions: acetaminophen [From Tylenol] Adverse Reaction (Mild, Verified 10/22/16 06:13) Nausea Past Medical History - General Information source: Patient - Social History Smoking Status: Current Every Day Smoker Frequency of alcohol use: Occasional Drug Abuse: None Lives with: Spouse/Significant other Family History: Reviewed & Not Pertinent, CAD, DM, Hypertension Patient has suicidal ideation: No Patient has homicidal ideation: No - Past Medical History Cardiac Medical History: Reports: Hx Congestive Heart Failure, Hx Coronary Artery Disease, Hx Hypercholesterolemia, Hx Hypertension, Hx Pulmonary Embolism Pulmonary Medical History: Reports: Hx Asthma, Hx Bronchitis, Hx COPD, Hx Pneumonia, Hx Intubation, Hx Respiratory Failure Neurological Medical History: Reports: Hx Seizures Endocrine Medical History: Reports: Hx Diabetes Mellitus Type 2, Hx Hypothyroidism Renal/ Medical History: Denies: Hx Peritoneal Dialysis GI Medical History: Reports: Hx Gastroesophageal Reflux Disease Musculoskeltal Medical History: Reports Hx Musculoskeletal Trauma Psychiatric Medical History: Reports: Hx Depression Infectious Medical History: Reports: Hx MRSA, Hx VRE Past Surgical History: Reports: Hx Appendectomy, Hx Coronary Stent, Hx Orthopedic Surgery - L 1st toe amputation, R ankle recon, R elbow pin, L rotator cuff, Hx Tonsillectomy, Other - Multiple I&D's, Colonoscopy, [place] filter placement - Immunizations Hx Diphtheria, Pertussis, Tetanus Vaccination: Yes Review of Systems - Review of Systems Notes: Constitutional: Positive for fever. HENT: Negative for sore throat. Eyes: Negative for visual changes. Cardiovascular: Negative for chest pain. Respiratory: Positive for shortness of breath. Gastrointestinal: Negative for abdominal pain, vomiting or diarrhea. Genitourinary: Negative for dysuria. Musculoskeletal: Negative for back pain. Skin: Negative for rash. Neurological: Negative for headaches, weakness or numbness. 10 point ROS negative except as marked above and in HPI. Physical Exam - Vital signs Vitals: Temp Pulse Resp BP Pulse Ox 98.4 F 80 20 149/77 H 94 11/21/16 20:11 11/21/16 20:11 11/21/16 20:11 11/21/16 20:11 11/21/16 20:11 Interpretation: Normal Notes: PHYSICAL EXAMINATION: GENERAL: Well-appearing, well-nourished and in no acute distress. HEAD: Atraumatic, normocephalic. EYES: Pupils equal round and reactive to light, extraocular movements intact, sclera anicteric, conjunctiva are normal. ENT: nares patent, oropharynx clear without exudates. Moist mucous membranes. NECK: Normal range of motion, supple without lymphadenopathy LUNGS: Breath sounds clear to auscultation bilaterally and equal. No wheezes rales or rhonchi. HEART: Regular rate and rhythm without murmurs ABDOMEN: Soft, nontender, normoactive bowel sounds. No guarding, no rebound. No masses appreciated. EXTREMITIES: Normal range of motion, no pitting or edema. No cyanosis. NEUROLOGICAL: No focal neurological deficits. Moves all extremities spontaneously and on command. PSYCH: Normal mood, normal affect. SKIN: Warm, Dry, normal turgor, no rashes or lesions noted. Course - Re-evaluation Re-evalutation: 11/21/16 21:39 Patient presents with a mild exacerbation of their baseline COPD. Mild wheezing at time of presentation but vitals do not show significant hypoxemia or tachypnea. No retractions. Chest x-ray without evidence of an acute pneumonia. Laboratories do not show acute kidney injury or significant leukocytosis. Patient does have prominent hyperglycemia which she states is baseline and admits that she had a large bowl of ice cream shortly prior to coming to the emergency department. Patient able to ambulate without any respiratory distress. Based on patient's overall reassuring assessment, I believe they are stable for outpatient management with steroids and oral antibiotics. Patient has nebulizers at home. I do not suspect an acute alternative pathology at this time based on history and exam including acute pulmonary embolus, ACS, pneumothorax, or aortic dissection. At this time will discharge with return precautions and follow-up recommendations. Verbal discharge instructions given a the bedside and opportunity for questions given. Medication warnings reviewed. Patient is in agreement with this plan and has verbalized understanding of return precautions and the need for primary care follow-up in the next 24-72 hours. - Vital Signs Vital signs: Temp Pulse Resp BP Pulse Ox 98.4 F 80 20 149/77 H 94 11/21/16 21:06 11/21/16 21:06 11/21/16 21:06 11/21/16 21:06 11/21/16 21:06 - Laboratory Result Diagrams: 11/21/16 20:40 11/21/16 20:40 Laboratory results interpreted by me: 11/21/16 11/21/16 11/21/16 20:40 20:40 20:40 RDW 17.0 H Sodium 133.9 L Chloride 96 L Glucose 550 H* Urine Glucose (UA) >=500 H - Diagnostic Test Radiology reviewed: Image reviewed, Reports reviewed Radiology results interpreted by me: 11/21/16 21:40 Chest x-ray: No acute infiltrate Discharge - Discharge Clinical Impression: COPD exacerbation, Hyperglycemia Condition: Stable Disposition: HOME, SELF-CARE Additional Instructions: You were seen for a COPD exacerbation. Your symptoms improved with treatment here in the emergency department. However, it is very important that you return to the emergency department immediately if you began to have worsening difficulty breathing that does not respond to your normal home nebulizers. You are also being sent home on a five-day course of steroids that you should start taking tomorrow. Please also take the antibiotics as prescribed. Please also follow closely with your primary care physician. You should return to emergency department if you develop persistent vomiting, pass out, or any other symptoms that are concerning to you. You need to followup urgently with your primary care doctor as your blood sugars were dangerously high today. You did not have any evidence of a dangerous condition associated with these blood sugars at this time. However, it is very important that you get your blood sugars under control. Please take all of your medications exactly as directed. You should avoid foods that are high in carbohydrates and sugary foods. Losing weight will also help to better control your blood sugars. Please return to emergency department immediately if you develop weakness, persistent vomiting, confusion, or any other symptoms that are concerning to you. Prescriptions: Morphine Sulfate [Morphine Ir 15 mg Tablet] 15 mg PO Q4HP PRN #5 tablet PRN Reason: Doxycycline Hyclate 100 mg PO BID #14 capsule Prednisone [Deltasone 20 mg Tablet] 3 tab PO DAILY 5 Days Referrals: AC HARRINGTON MD [Primary Care Provider] - Follow up in 3-5 days
== END 2016-11-21 22:40 | disposition home or self-care (01) ==
LOC: ER 20:08
DX: J44.1 Chronic obstructive pulmonary disease with (acute) exacerbation (principal); E11.65 Type 2 diabetes mellitus with hyperglycemia; R50.9 Fever, unspecified; I10 Essential (primary) hypertension; R05 Cough; R06.02 Shortness of breath; F17.200 Nicotine dependence, unspecified, uncomplicated
CPT/HCPCS: 99283; 36415; 85025; 80053; 81001; 71020; J3490; J1815

== ENCOUNTER 2017-01-07 13:20 | Emergency (ER) | payer MEDICAID ==
[2017-01-07] MEDS ORDERED: OXYCODONE HCL IR 5 MG TABLET PO ONE (14:21)
[2017-01-07] MEDS ORDERED: KETOROLAC TROMETHAMINE INJ/PF 30 MG/1 ML SDV IM ONE (14:22)
--- NOTE | 2017-01-07 14:26 | ER Document Report ---
HPI - HPI Pain Level: 5 Notes: Patient is a 56-year-old female presents the ED complaining of chronic low back pain 7 years. Patient states that she has been having a little bit more increased pain on her right side over the last 2 days. She has chronic pain symptoms into her right lower extremity along with an occasional tingling sensation. Patient states that her pain is primarily in her right hip and her right upper buttock. Patient states she is a diabetic and has hypertension and hypothyroidism. Tylenol gives her a GI upset. Her PCM is Dr. Harrington. Patient requesting narcotics. She still eating and drinking without any problems. She is urinating normally and having normal bowel movements. Denies any saddle anesthesia or loss of control of bowel or bladder. Patient does smoke but does not do any recreational or illicit drugs. Patient states that she has not received any narcotics since May 2016. Denies any headache, fever, URI, sore throat, chest pain, palpitations, syncope, dyspnea on exertion, cough, wheeze, shortness of breath, abdominal pain, nausea/vomiting/diarrhea, urinary retention, dysuria, hematuria, muscle weakness/paralysis, or rash. - ROS Notes: REVIEW OF SYSTEMS: CONSTITUTIONAL : Denies fever, chills, or sweats. Denies recent illness. EENT: Denies eye, ear, throat, or mouth pain or symptoms. Denies nasal or sinus congestion or discharge. Denies throat, tongue, or mouth swelling or difficulty swallowing. CARDIOVASCULAR: Denies chest pain. Denies palpitations or racing or irregular heart beat. Denies ankle edema. RESPIRATORY: Denies cough, cold, or chest congestion. Denies shortness of breath, difficulty breathing, or wheezing. GASTROINTESTINAL: Denies abdominal pain or distention. Denies nausea, vomiting , or diarrhea. Denies blood in vomitus, stools, or per rectum. Denies black, tarry stools. Denies constipation. GENITOURINARY: Denies difficulty urinating, painful urination, burning, frequency, blood in urine, or discharge. FEMALE GENITOURINARY: Denies vaginal bleeding, heavy or abnormal periods, irregular periods. Denies vaginal discharge or odor. MUSCULOSKELETAL: see hpi SKIN: Denies rash, lesions or sores. NEUROLOGICAL: Denies confusion or altered mental status. Denies passing out or loss of consciousness. Denies dizziness or lightheadedness. Denies headache. Denies weakness or paralysis or loss of use of either side. Denies problems with gait or speech. Denies seizures. see HPI. ALL OTHER SYSTEMS REVIEWED AND NEGATIVE. Dictation was performed using [employer] voice recognition software - REPRODUCTIVE Reproductive: DENIES: : - DERM Skin Color: Normal Past Medical History - General Information source: Patient - Social History Smoking Status: Current Every Day Smoker Family History: Reviewed & Not Pertinent, CAD, DM, Hypertension Patient has suicidal ideation: No Patient has homicidal ideation: No - Past Medical History Cardiac Medical History: Reports: Hx Congestive Heart Failure, Hx Coronary Artery Disease, Hx Hypercholesterolemia, Hx Hypertension, Hx Pulmonary Embolism Pulmonary Medical History: Reports: Hx Asthma, Hx Bronchitis, Hx COPD, Hx Pneumonia, Hx Intubation, Hx Respiratory Failure Neurological Medical History: Reports: Hx Seizures Endocrine Medical History: Reports: Hx Diabetes Mellitus Type 2, Hx Hypothyroidism Renal/ Medical History: Denies: Hx Peritoneal Dialysis GI Medical History: Reports: Hx Gastroesophageal Reflux Disease Musculoskeltal Medical History: Reports Hx Musculoskeletal Trauma Psychiatric Medical History: Reports: Hx Depression Infectious Medical History: Reports: Hx MRSA, Hx VRE Past Surgical History: Reports: Hx Appendectomy, Hx Coronary Stent, Hx Orthopedic Surgery - L 1st toe amputation, R ankle recon, R elbow pin, L rotator cuff, Hx Tonsillectomy, Other - Multiple I&D's, Colonoscopy, [place] filter placement - Immunizations Hx Diphtheria, Pertussis, Tetanus Vaccination: Yes Vertical Provider Document - CONSTITUTIONAL Agree With Documented VS: Yes Notes: PHYSICAL EXAMINATION: GENERAL: Well-appearing, well-nourished and in no acute distress. obese. NECK: Normal range of motion, supple without lymphadenopathy. No rigidity. LUNGS: Breath sounds clear to auscultation bilaterally and equal. No wheezes rales or rhonchi. HEART: Regular rate and rhythm without murmurs, rubs, gallops. ABDOMEN: Soft, nontender, nondistended abdomen. No guarding, no rebound. No masses appreciated. Normal bowel sounds present. No CVA tenderness bilaterally. No pulsatile mass. Musculoskeletal: LE's b/l: FROM to passive/active. Strength 5+/5. SLR negative b /l. N/V intact distal. + tenderness to the rt SI joint and rt hip troch bursa. Back: LROM to flexion/ext. No vertebral point tenderness. + mild tightness to L-paraspinal muscles. Extremities: No cyanosis, clubbing, or edema b/l. Peripheral pulses 2+. Capillary refill less than 3 seconds. NEUROLOGICAL: Normal sensory, motor exams. Reflexes 1+ b/l. PSYCH: Normal mood, normal affect. SKIN: Warm, Dry, normal turgor, no rashes or lesions noted. - INFECTION CONTROL TRAVEL OUTSIDE OF THE [place] IN LAST 30 DAYS: No - RESPIRATORY O2 Sat by Pulse Oximetry: 94 Course - Re-evaluation Re-evalutation: 01/07/17 15:02 Patient is an afebrile, well-hydrated, 56-year-old female presents the ED complaining of chronic low back pain. Vitals are stable. PE otherwise unremarkable for any focal neurological deficits on exam today. Low suspicion for any expanding/ruptured AAA, cauda equina syndrome, epidural mass lesion, disc herniation causing severe spinal stenosis, meningitis, systemic illness. Patient requesting narcotics for pain. Patient states that I am allowed to give 3 days of narcotics. After much persistence and patient education, I settled to give her 1 oxycodone 5-325 today along with a Toradol 15 mg injection , but refused to send her home with any narcotics. According to the narcotic database patient has received narcotics since May, which contradicted with the patient told me upon arrival. Conservative measures for symptoms otherwise. I will send the patient home with Voltaren gel to use as directed. Recheck with her PCM in 2-3 days. Return to ED with any worsening/concerning symptoms otherwise. Consider consult with orthopedics, pain management consult , physical therapy. Patient is in agreement Patient was subjectively reported (to me) to be walking normally near [place], went outside to smoke a cigarette, and came back without any problems, but when they brought her back she started holding her back and walking with an ataxic gait. This was all visualized by the nurse. - Vital Signs Vital signs: Temp Pulse Resp BP Pulse Ox 98.1 F 98 20 143/78 H 94 01/07/17 13:25 01/07/17 13:25 01/07/17 13:25 01/07/17 13:25 01/07/17 13:25 Discharge - Discharge Clinical Impression: Chronic low back pain Qualifiers: Back pain laterality: right Sciatica presence: unspecified whether sciatica present Qualified Code(s): M54.5 - Low back pain Condition: Stable Disposition: HOME, SELF-CARE Instructions: Ice Packs ([facility]), Warm Packs ([facility]), Low Back Pain ([facility]), Muscle Strain ([facility]) Additional Instructions: Rest, Ice Take meds as directed Tylenol/ibuprofen as needed Light stretches daily Strength exercises as able Moist heat and massage may help F/u with your PCP in 2-3 days for a recheck Consider consult(s) with Orthopedics for ongoing/worsening symptoms Consider consult with physical therapy as well. Return to the ED with any worsening symptoms and/or development of fever, headache, chest pain, palpitations, syncope, shortness of breath, trouble breathing, abdominal pain, n/v/d, blood in stool/urine, loss of control of bowel /bladder, urinary retention, muscle weakness/paralysis, numbness/tingling, or other worsening symptoms that are concerning to you. Prescriptions: Diclofenac Sodium [Voltaren] 4 gm TP QID PRN #100 gel..gm. PRN Reason: Forms: Elevated Blood Pressure, Smoking Cessation Education Referrals: AC HARRINGTON MD [Primary Care Provider] - Follow up as needed [facility] [Provider Group] - Follow up as needed
[2017-01-07 14:58] VITALS: BP 111/68
== END 2017-01-07 14:55 | disposition home or self-care (01) ==
LOC: ER 13:20
DX: M54.5 Low back pain (principal); G89.29 Other chronic pain; R20.0 Anesthesia of skin; F17.200 Nicotine dependence, unspecified, uncomplicated
CPT/HCPCS: 99283; 96372; J1885; J3490

== ENCOUNTER 2017-01-29 03:02 | Emergency (ER) | payer MEDICAID ==
[2017-01-29 03:18] VITALS: BP 162/85
[2017-01-29] MEDS ORDERED: IBUPROFEN 600 MG TABLET PO ONE (04:03)
--- NOTE | 2017-01-29 04:13 | ER Document Report ---
ED Skin Rash/Insect Bite/Abscs - General Chief Complaint: Abscess Stated Complaint: VAGINAL DISCOMFORT Time Seen by Provider: 01/29/17 03:45 Mode of Arrival: Ambulatory Information source: Patient Notes: 56-year-old female presents to ED for abscesses to her groin and under her pannus area. She reports she abscess started about 5 days. She states she has had multiple abscesses in the past and has a history of MRSA. She states that antibiotics no longer work on her abscesses. She also refused to have her abscesses I&D tonight. He states the only way anybody will cut these is that she is asleep. She states she would rather just treat them herself until they come open main reason that she is here she states is because her knee does not want to bend or straighten properly about severe pain. TRAVEL OUTSIDE OF THE [place] IN LAST 30 DAYS: No - HPI Patient complains to provider of: Tender/swollen area, Other - Left knee pain Onset: Other - Left knee pain since Saturday abscesses since Saturday Onset/Duration: Gradual Quality of pain: Burning - 2 abscesses, Throbbing - Knee Severity: Severe Pain Level: 5 Skin Character: Abscess - Pans area and bilateral labia, Other Identify cause: No Exacerbated by: Movement, Walking Relieved by: Denies Similar symptoms previously: Yes Recently seen / treated by doctor: No - Related Data Allergies/Adverse Reactions: acetaminophen [From Tylenol] Adverse Reaction (Mild, Verified 01/29/17 03:15) Nausea Past Medical History - General Information source: Patient - Social History Smoking Status: Unknown if Ever Smoked Cigarette use (# per day): No Lives with: Family Family History: CAD, DM, Hypertension - Past Medical History Cardiac Medical History: Reports: Hx Congestive Heart Failure, Hx Coronary Artery Disease, Hx Hypercholesterolemia, Hx Hypertension, Hx Pulmonary Embolism Pulmonary Medical History: Reports: Hx Asthma, Hx Bronchitis, Hx COPD, Hx Pneumonia, Hx Intubation, Hx Respiratory Failure Neurological Medical History: Reports: Hx Seizures Endocrine Medical History: Reports: Hx Diabetes Mellitus Type 2, Hx Hypothyroidism Renal/ Medical History: Denies: Hx Peritoneal Dialysis GI Medical History: Reports: Hx Gastroesophageal Reflux Disease Musculoskeltal Medical History: Reports Hx Musculoskeletal Trauma Psychiatric Medical History: Reports: Hx Depression Infectious Medical History: Reports: Hx MRSA, Hx VRE Past Surgical History: Reports: Hx Appendectomy, Hx Coronary Stent, Hx Orthopedic Surgery - L 1st toe amputation, R ankle recon, R elbow pin, L rotator cuff, Hx Tonsillectomy, Other - Multiple I&D's, Colonoscopy, [place] filter placement - Immunizations Hx Diphtheria, Pertussis, Tetanus Vaccination: Yes Review of Systems - Review of Systems Constitutional: No symptoms reported EENT: No symptoms reported Cardiovascular: No symptoms reported Respiratory: No symptoms reported Gastrointestinal: No symptoms reported Genitourinary: No symptoms reported Female Genitourinary: No symptoms reported Musculoskeletal: Other - Complains of pain to left knee with no injury Skin: Other - Abscesses due to skin fold under stomach, and one on each labia Hematologic/Lymphatic: No symptoms reported Neurological/Psychological: No symptoms reported -: Yes All other systems reviewed and negative Physical Exam - Vital signs Vitals: Temp Pulse Resp BP Pulse Ox 97.5 F 93 20 162/85 H 95 01/29/17 03:15 01/29/17 03:15 01/29/17 03:15 01/29/17 03:15 01/29/17 03:15 Interpretation: Normal - General General appearance: Appears well, Alert - HEENT Head: Normocephalic, Atraumatic Eyes: Normal Pupils: PERRL - Respiratory Respiratory status: No respiratory distress Chest status: Nontender Breath sounds: Normal Chest palpation: Normal - Cardiovascular Rhythm: Regular Heart sounds: Normal auscultation Murmur: No - Abdominal Inspection: Normal Distension: No distension Bowel sounds: Normal Tenderness: Nontender Organomegaly: No organomegaly - Back Back: Normal, Nontender - Extremities General upper extremity: Normal inspection, Nontender, Normal color, Normal ROM , Normal temperature General lower extremity: Normal inspection, Nontender, Normal color, Normal ROM , Normal temperature, Normal weight bearing. No: Reji's sign - Neurological Neuro grossly intact: Yes Cognition: Normal Orientation: AAOx4 [place] Coma Scale Eye Opening: Spontaneous [place] Coma Scale Verbal: Oriented Jake Coma Scale Motor: Obeys Commands [place] Coma Scale Total: 15 Speech: Normal Motor strength normal: LUE, RUE, LLE, RLE Sensory: Normal - Psychological Associated symptoms: Normal affect, Normal mood - Skin Skin Temperature: Warm Skin Moisture: Dry Skin Color: Normal Skin irregularity: Abscess Location of irregularity: Abdomen - Under skin folds tender to touch with redness and swelling, Other - 1 abscess on each labia Character of irregularity: Erythematous Irregularity with: Swelling, Tenderness, Warmth Course - Re-evaluation Re-evalutation: 01/29/17 05:48 Patient needs used any I&D's of abscesses. She also refused antibiotics for the abscess. She states she mainly came in for the pain in her knee. She states she cannot straighten her knee but on several occasions during her exam she strained her knee completely straight. X-ray was done with no acute injuries. Will discharge patient home with a copy of her x-ray report to take to her primary doctor for follow-up. - Vital Signs Vital signs: Temp Pulse Resp BP Pulse Ox 97.5 F 93 20 162/85 H 95 01/29/17 03:15 01/29/17 03:15 01/29/17 03:15 01/29/17 03:15 01/29/17 03:15 - Diagnostic Test Radiology reviewed: Image reviewed, Reports reviewed Discharge - Discharge Clinical Impression: Multiple small abscesses patient refused I&D Left knee pain Qualifiers: Chronicity: acute Qualified Code(s): M25.562 - Pain in left knee Condition: Stable Disposition: HOME, SELF-CARE Additional Instructions: ABSCESS: You have an abscess (boil). This a pus-forming infection, usually due to staph. Some boils may be left to drain on their own, but most require lancing. From the time the tender lump first appears, it may be three or four days before the abscess is ready to bronson. Local heat and rest help at this stage of treatment. An antibiotic may prevent spread of the infection. Once the abscess is opened, packing may be placed into it. This is done so pus is not sealed inside by premature closure of the cavity. The packing will be removed at your follow-up visit or you may be advised to remove it yourself at home. Sometimes this packing must be replaced a few times during healing. The wound will heal with surprisingly little scar. Depending on the size and location of an abscess, healing can take one to four weeks. You may shower and wash the area around the incision site two or three times a day. Antibiotics may be prescribed, but are usually not necessary after an abscess has been drained. If you develop fever, chills, worsening pain, or increasing swelling in the area, call the doctor or return immediately. You also came in for left knee pain with no acute injuries. Your x-ray does not show any acute injuries. He will need to follow-up with your primary doctor and orthopedic for any further treatment for this knee. You have refused an I&D of your abscess and he also refused antibiotics. Use in Epsom salt soaks to the area will help to reduce the discomfort in these areas. Follow-up with your primary doctor or return to the ED if she decides she would like treatment for your abscesses. Epsom Salt Soaks Soak the wound area in a container of warm epsom salt water. If you can't get the wound area into a bucket or vaughn, use a folded towel soaked in the epsom salt solution and apply to the area. Use clean hot tap water (about the temperature of a very warm bath), mixing in about one (1) teaspoon for every pint of water. Two gallon --> 16 teaspoons Epsom Salts One gallon --> 8 teaspoons Epsom Salts Two quarts --> 4 teaspoons Epsom Salts One quart --> 2 teaspoons Epsom Salts Soak the wound for about 20 minutes while gently moving it around in the water. Repeat this four (4) times a day. Ibuprofen Ibuprofen is an excellent, safe drug for pain control. In addition, it has potent antiinflammatory effects which are beneficial, especially in the treatment of injuries, arthritis, or tendonitis. It's best to take ibuprofen with food. Persons with ulcer disease or allergy to aspirin should notify their physician of this before taking ibuprofen. Take the medication exactly as prescribed. Don't take additional doses unless instructed to do so by your doctor. If you develop wheezing, shortness of breath, hives, faintness, stomach pain, vomiting, or dark black stools, return for re-evaluation at once. FOLLOW-UP CARE: Most simple abscesses will not require a follow up visit. If you had packing placed in the abscess, remove it as instructed by the physician. If you have been referred to a physician for follow-up care, call the physicians office for an appointment as you were instructed or within the next two days. If you experience worsening or a significant change in your symptoms, return to the Emergency Department at any time for re-evaluation. Forms: Elevated Blood Pressure Referrals: DEEDEE HARRINGTON MD [Primary Care Provider] - Follow up as needed
--- NOTE | 2017-01-29 05:14 | RADIOLOGY REPORT (SQ) ---
EXAM DESCRIPTION: KNEE LEFT 4 VIEW COMPLETED DATE/TIME: 01/29/2017 4:52 am REASON FOR STUDY: pain and decreased rom COMPARISON: None. NUMBER OF VIEWS: Four views. TECHNIQUE: AP, lateral, and both oblique radiographic images acquired of the left knee. LIMITATIONS: None. FINDINGS: MINERALIZATION: Normal. BONES: No acute fracture or dislocation. No worrisome bone lesions. JOINT: No effusion. Moderate chondrocalcinosis. 0.3 cm ossicular loose bodies at the posterior aspe ct of the medial compartment. SOFT TISSUES: No soft tissue swelling. No radio-opaque foreign body. OTHER: No other significant finding. IMPRESSION: Moderate chondrocalcinosis and small loose intra-articular bodies of the left knee. TECHNICAL DOCUMENTATION: JOB ID: [id number] [employer]- All Rights Reserved
== END 2017-01-29 06:07 | disposition home or self-care (01) ==
LOC: ER 03:02
DX: M25.562 Pain in left knee (principal); L02.211 Cutaneous abscess of abdominal wall; N76.4 Abscess of vulva; Z86.14 Personal history of Methicillin resistant Staphylococcus aureus infection; E11.9 Type 2 diabetes mellitus without complications; I25.10 Atherosclerotic heart disease of native coronary artery without angina pectoris; I10 Essential (primary) hypertension; Z86.711 Personal history of pulmonary embolism; Z98.61 Coronary angioplasty status
CPT/HCPCS: 99283

== ENCOUNTER 2017-02-20 07:28 | Emergency (ER) | payer MEDICAID ==
--- NOTE | 2017-02-20 08:16 | ER Document Report ---
ED Extremity Problem, Lower - General Information source: Patient TRAVEL OUTSIDE OF THE [place] IN LAST 30 DAYS: No - HPI Location: Ankle, Foot Occurred: Other - 02/09/2017 Where: Home Context: Other - pulled down cement stairs by dog Exacerbated by: Walking <LOTTIE COWAN - Last Filed: 02/20/17 11:18> <SCARLET SPAIN - Last Filed: 02/20/17 11:31> - General Chief Complaint: Foot Pain Stated Complaint: LEFT FOOT INJURY Time Seen by Provider: 02/20/17 08:02 Notes: Patient is a 56 year old female who presents to the ED with complaints of left ankle and foot pain and swelling secondary to being pulled down cement stairs on 02/09/17 by her dog. Patient has large abrasions to bilateral lower extremities from her knees down. Patient was seen in the ED on Saturday at [facility], had x rays done and was placed on Keflex. Patient states the redness around her wounds developed the day of the injury and the swelling presented 2 days later. Patient has decreased ambulation due to pain. Patient is a diabetic and is on Humalog and Lantus. (LOTTIE COWAN) - Related Data Allergies/Adverse Reactions: acetaminophen [From Tylenol] Adverse Reaction (Mild, Verified 02/20/17 07:31) Nausea Home Medications: Current Home Medications Cephalexin [Cephalexin 500 MG Capsule] 1 cap PO BID 02/20/17 [History] Lisinopril 20 mg PO DAILY 02/20/17 [History] Mometasone Furoate [Asmanex Hfa] 13 gm IH BID 02/20/17 [History] Past Medical History - General Information source: Patient - Social History Smoking Status: Current Every Day Smoker Chew tobacco use (# tins/day): No Frequency of alcohol use: None Drug Abuse: None Family History: CAD, DM, Hypertension Patient has suicidal ideation: No Patient has homicidal ideation: No - Past Medical History Cardiac Medical History: Reports: Hx Congestive Heart Failure, Hx Coronary Artery Disease, Hx Hypercholesterolemia, Hx Hypertension, Hx Pulmonary Embolism Pulmonary Medical History: Reports: Hx Asthma, Hx Bronchitis, Hx COPD, Hx Pneumonia, Hx Intubation, Hx Respiratory Failure Neurological Medical History: Reports: Hx Seizures Endocrine Medical History: Reports: Hx Diabetes Mellitus Type 2, Hx Hypothyroidism Renal/ Medical History: Denies: Hx Peritoneal Dialysis GI Medical History: Reports: Hx Gastroesophageal Reflux Disease Musculoskeltal Medical History: Reports Hx Musculoskeletal Trauma Psychiatric Medical History: Reports: Hx Depression Infectious Medical History: Reports: Hx MRSA, Hx VRE Past Surgical History: Reports: Hx Appendectomy, Hx Coronary Stent, Hx Orthopedic Surgery - L 1st toe amputation, R ankle recon, R elbow pin, L rotator cuff, Hx Tonsillectomy, Other - Multiple I&D's, Colonoscopy, Flip filter placement - Immunizations Hx Diphtheria, Pertussis, Tetanus Vaccination: Yes <LOTTIE COWAN - Last Filed: 02/20/17 11:18> Review of Systems - Review of Systems Constitutional: No symptoms reported EENT: No symptoms reported Cardiovascular: No symptoms reported Respiratory: No symptoms reported Gastrointestinal: No symptoms reported Genitourinary: No symptoms reported Female Genitourinary: No symptoms reported Musculoskeletal: See HPI, Other - left foot/ankle pain and swelling Skin: See HPI, Other - multiple large abrasions to bilateral lower extremities from knees down Hematologic/Lymphatic: No symptoms reported Neurological/Psychological: No symptoms reported <LOTTIE COWAN - Last Filed: 02/20/17 11:18> Physical Exam - General General appearance: Appears well, Alert - HEENT Head: Normocephalic, Atraumatic Eyes: Normal Extraocular movements intact: Yes Pupils: PERRL - Respiratory Respiratory status: No respiratory distress Breath sounds: Normal - Cardiovascular Rhythm: Regular Heart sounds: Normal auscultation Murmur: No - Abdominal Inspection: Obese - Back Back: Normal - Extremities General upper extremity: Normal inspection, Normal ROM General lower extremity: Other - healing abrasions to bilateral knees and legs with scabs, on left leg there is erythema and swelling around area to upper part and lateral part of wound, left dorsal lateral foot is swollen, erythemetous and tender, missing left first toe - Neurological Neuro grossly intact: Yes - Psychological Associated symptoms: Normal affect, Normal mood - Skin Skin Temperature: Warm Skin Moisture: Dry Skin Color: Normal Skin irregularity: other - healing abrasions to bilateral knees and legs with scabs, on left leg there is erythema and swelling around area to upper part and lateral part of wound, left dorsal lateral foot is swollen, erythemetous and tender <LOTTIE COWAN - Last Filed: 02/20/17 11:18> - Vital signs Vitals: Temp Pulse Resp BP Pulse Ox 97.5 F 87 15 129/64 H 91 L 02/20/17 07:36 02/20/17 07:36 02/20/17 07:36 02/20/17 07:36 02/20/17 07:36 Course - Laboratory Result Diagrams: 02/20/17 10:00 02/20/17 08:35 - Consults Dr. Castro Time consulted: 11:18 Consulted provider: follow-up in office <LOTTIE COWAN - Last Filed: 02/20/17 11:18> - Laboratory Result Diagrams: 02/20/17 10:00 02/20/17 08:35 - Consults Dr. Castro Consulted provider: follow-up in office - Dr. Castro request the patient comes to the office tomorrow afternoon at 3 PM and bring all of her medications except the refrigerated insulin and to bring the doses of those medications. <SCARLET SPAIN - Last Filed: 02/20/17 11:31> - Vital Signs Vital signs: Temp Pulse Resp BP Pulse Ox 97.5 F 87 15 129/64 H 91 L 02/20/17 07:36 02/20/17 07:36 02/20/17 07:36 02/20/17 07:36 02/20/17 07:36 - Laboratory Laboratory results interpreted by me: 02/20/17 02/20/17 02/20/17 08:35 08:35 10:00 RDW 15.5 H Chloride 96 L Glucose 439 H* Hemoglobin A1c % 13.9 H Calcium 10.7 H AST 58 H ALT 62 H - Consults Dr. Castro Reason for consultation: 02/20/17 11:18 Discussed patient. Patient needs to bring all of her daily medication to his office. He will follow up with the patient in his office tomorrow. (LOTTIE COWAN) Discharge <LOTTIE COWAN - Last Filed: 02/20/17 11:18> <SCARLET SPAIN - Last Filed: 02/20/17 11:31> - Discharge Clinical Impression: Cellulitis of left anterior lower leg, Cellulitis of left foot, Poorly controlled diabetes mellitus Hyperglycemia due to type 2 diabetes mellitus Qualifiers: Diabetes mellitus retirement insulin use: with retirement use Qualified Code(s): E11.65 - Type 2 diabetes mellitus with hyperglycemia; Z79.4 - prison (current ) use of insulin Condition: Stable Disposition: HOME, SELF-CARE Additional Instructions: Elevate your foot all the time. Add the medications as prescribed. Check your sugars regularly and adjust your insulin dosage accordingly. Drink plenty of water. Follow-up with Dr. Castro tomorrow in the office at 3 PM. Prescriptions: Doxycycline Hyclate 100 mg PO BID #14 tablet Oxycodone HCl 5 mg PO ASDIR PRN #15 tablet PRN Reason: Referrals: AC CASTRO MD [Primary Care Provider] - Follow up tomorrow Scribe Attestation: 02/20/17 08:21 I personally performed the services described in the documentation, reviewed and edited the documentation which was dictated to the scribe in my presence, and it accurately records my words and actions. (SCARLET SPAIN) Scribe Documentation - Scribe Written by Zack:: zack Oconnor, 02/20/2017, 0808 acting as scribe for :: Renetta <LOTTIE COWAN - Last Filed: 02/20/17 11:18>
[2017-02-20] MEDS ORDERED: OXYCODONE HCL IR 5 MG TABLET PO ONE ×2 (08:18→11:31)
[2017-02-20 08:59] LABS: ALANINE AMINOTRANSFERASE 62 U/L (9-52); ALBUMIN 4.2 g/dL (3.5-5.0); ALKALINE PHOSPHATASE 120 U/L (38-126); ANION GAP 11 (5-19); ASPARTATE AMINO TRANSFERASE 58 U/L (14-36); BILIRUBIN,DIRECT 0.4 mg/dL (0.0-0.4); BILIRUBIN,TOTAL 0.6 mg/dL (0.2-1.3); BLOOD UREA NITROGEN 15 mg/dL (7-20); CALCIUM 10.7 mg/dL (8.4-10.2); CARBON DIOXIDE 30 mmol/L (22-30); CHLORIDE 96 mmol/L (98-107); CREATININE RESULT 0.74 mg/dL (0.52-1.25); POTASSIUM 4.6 mmol/L (3.6-5.0); SODIUM 137.2 mmol/L (137-145); TOTAL PROTEIN 7.4 g/dL (6.3-8.2)
[2017-02-20 09:10] LABS: GLUCOSE 439 mg/dL (75-110)
[2017-02-20 10:26] LABS: ABSOLUTE BASOPHILS # (AUTO) 0.1 10^3/uL (0.0-0.2); ABSOLUTE EOSINOPHILS # (AUTO) 0.1 10^3/uL (0.0-0.6); ABSOLUTE LYMPHOCYTES (AUTO) 1.2 10^3/uL (0.5-4.7); ABSOLUTE MONOCYTES (AUTO) 0.5 10^3/uL (0.1-1.4); ABSOLUTE NEUT (AUTO) 5.2 10^3/uL (1.7-8.2); EOSINOPHILS % (AUTO) 1.5 % (0-6); HEMATOCRIT 40.5 % (36.0-47.0); HEMOGLOBIN 13.4 g/dL (12.0-15.5); HGB HCT DIFFERENCE -0.3; MEAN CORPUSCULAR HGB CONC 33.1 g/dL (32.0-36.0); MEAN CORPUSCULAR VOLUME 91 fl (80-97); MONOCYTES % (AUTO) 6.9 % (3-13); RED BLOOD COUNT 4.48 10^6/uL (3.72-5.28); RED CELL DISTRIBUTION WIDTH 15.5 % (11.5-14.0); SEGMENTED NEUTROPHILS % (AUTO) 73.6 % (42-78); WHITE BLOOD COUNT 7.1 10^3/uL (4.0-10.5)
[2017-02-20] MEDS ORDERED: INSULIN REG, HUMAN 100 UNIT/ML 3 ML VIAL (PYX) SUBCUT ONE (11:32)
[2017-02-20 11:55] VITALS: BP 135/68
== END 2017-02-20 11:55 | disposition home or self-care (01) ==
LOC: ER 07:28
DX: S80.812A Abrasion, left lower leg, initial encounter (principal); S80.811A Abrasion, right lower leg, initial encounter; S80.211A Abrasion, right knee, initial encounter; S80.212A Abrasion, left knee, initial encounter; L03.116 Cellulitis of left lower limb; W10.9XXA Fall (on) (from) unspecified stairs and steps, initial encounter; E11.65 Type 2 diabetes mellitus with hyperglycemia; Z79.4 Long term (current) use of insulin; F17.200 Nicotine dependence, unspecified, uncomplicated; I25.10 Atherosclerotic heart disease of native coronary artery without angina pectoris; I10 Essential (primary) hypertension; J44.9 Chronic obstructive pulmonary disease, unspecified; Z86.14 Personal history of Methicillin resistant Staphylococcus aureus infection; Z98.61 Coronary angioplasty status
CPT/HCPCS: 99283; 36415; 87040; 85025; 80053; 83036; J1815; J3490

== ENCOUNTER 2017-03-03 06:02 | Inpatient (IN) | payer MEDICAID ==
[2017-03-03] MEDS ORDERED: VANCOMYCIN HCL INJ 1000 MG VIAL IV ONE (06:21)
[2017-03-03] MEDS ORDERED: NORMAL SALINE 1000 ML 1,000 ML IV ONE ×2 (06:21→07:03)
[2017-03-03] MEDS ORDERED: CLINDAMYCIN 600 MG/D5W RTU 600 MG/50 ML RTUPB IV ONE (06:21)
[2017-03-03] MEDS ORDERED: PIPERACILLIN/TAZOBACTAM 3.375 GM VIAL IV ONE (06:21)
[2017-03-03] MEDS ORDERED: MORPHINE SULFATE 10 MG/ML INJ IV ONE (06:24)
--- NOTE | 2017-03-03 06:24 | ER Document Report ---
ED Wound - General Chief Complaint: Wound Infection Stated Complaint: LEFT FOOT BURNING AND SWOLLEN Time Seen by Provider: 03/03/17 06:14 Notes: The patient is a 56-year-old female, past medical history of poorly controlled diabetes, presents with 3 weeks of worsening bilateral foot and sparks wounds after fall downstairs. She was started on Keflex 2 weeks ago and then she thinks she was started on clindamycin 3 days ago by her primary care physician, Dr. Harrington. Patient states that the pain is worsening and she is noticing some drainage from her left leg wound. She had a fever of 102 yesterday. Patient is also having some difficulty ambulating. Denies nausea, vomiting, chest pain , shortness of breath, calf swelling or additional injuries. TRAVEL OUTSIDE OF THE [place] IN LAST 30 DAYS: No - Related Data Allergies/Adverse Reactions: acetaminophen [From Tylenol] Adverse Reaction (Mild, Verified 02/20/17 07:31) Nausea Past Medical History - General Information source: Patient - Social History Smoking Status: Current Every Day Smoker Family History: CAD, DM, Hypertension Patient has suicidal ideation: No Patient has homicidal ideation: No - Past Medical History Cardiac Medical History: Reports: Hx Congestive Heart Failure, Hx Coronary Artery Disease, Hx Hypercholesterolemia, Hx Hypertension, Hx Pulmonary Embolism Pulmonary Medical History: Reports: Hx Asthma, Hx Bronchitis, Hx COPD, Hx Pneumonia, Hx Intubation, Hx Respiratory Failure Neurological Medical History: Reports: Hx Seizures Endocrine Medical History: Reports: Hx Diabetes Mellitus Type 2, Hx Hypothyroidism Renal/ Medical History: Denies: Hx Peritoneal Dialysis GI Medical History: Reports: Hx Gastroesophageal Reflux Disease Musculoskeltal Medical History: Reports Hx Musculoskeletal Trauma Psychiatric Medical History: Reports: Hx Depression Infectious Medical History: Reports: Hx MRSA, Hx VRE Past Surgical History: Reports: Hx Appendectomy, Hx Coronary Stent, Hx Orthopedic Surgery - L 1st toe amputation, R ankle recon, R elbow pin, L rotator cuff, Hx Tonsillectomy, Other - Multiple I&D's, Colonoscopy, Flip filter placement - Immunizations Hx Diphtheria, Pertussis, Tetanus Vaccination: Yes Review of Systems - Review of Systems Notes: REVIEW OF SYSTEMS: CONSTITUTIONAL: -fevers, -chills EENT: -eye pain, -difficulty swallowing, -nasal congestion CARDIOVASCULAR:-chest pain, -syncope. RESPIRATORY: -cough, -SOB GASTROINTESTINAL: -abdominal pain, - nausea, -vomiting, -diarrhea GENITOURINARY: -dysuria, -hematuria MUSCULOSKELETAL: -back pain, -neck pain SKIN: +B/L leg wounds HEMATOLOGIC: -easy bruising or bleeding. LYMPHATIC: -swollen, enlarged glands. NEUROLOGICAL: -altered mental status or loss of consciousness, -headache, - neurologic symptoms PSYCHIATRIC: -anxiety, -depression. ALL OTHER SYSTEMS REVIEWED AND NEGATIVE. Physical Exam - Vital signs Vitals: Temp Pulse Resp BP Pulse Ox 97.9 F 77 18 129/65 H 97 03/03/17 06:08 03/03/17 06:08 03/03/17 06:08 03/03/17 06:08 03/03/17 06:08 - Notes Notes: PHYSICAL EXAMINATION: GENERAL: Well-appearing, well-nourished and in no acute distress. HEAD: Atraumatic, normocephalic. EYES: Pupils equal round and reactive to light, extraocular movements intact, sclera anicteric, conjunctiva are normal. ENT: nares patent, oropharynx clear without exudates. Moist mucous membranes. NECK: Normal range of motion, supple without lymphadenopathy LUNGS: Breath sounds clear to auscultation bilaterally and equal. No wheezes rales or rhonchi. HEART: Regular rate and rhythm without murmurs ABDOMEN: Soft, nontender, normoactive bowel sounds. No guarding, no rebound. No masses appreciated. EXTREMITIES: Left pretibial area wound with purulent discharge and surrounding erythema; right pretibial wound with dried scab and mild surrounding erythema. Strong distal pulses. NEUROLOGICAL: Cranial nerves grossly intact. Normal speech, normal gait. Peripheral neuropathy PSYCH: Normal mood, normal affect. Course - Re-evaluation Re-evalutation: Patient has failed multiple outpatient antibiotic regimens. No crepitus to suggest necrotizing fasciitis at this time. Vancomycin started for possible MRSA superinfection, Zosyn started for potential pseudomonas infection and clindamycin started for anaerobic coverage. Labs, blood cultures and wound cultures sent. Due to her poorly controlled diabetes (Hemoglobin A1C 13.4% last week) and worsening surrounding cellulitis, patient requires IV antibiotics and admission for further evaluation and treatment. Her PMD is Dr. Harrington. 03/03/17 07:[address] Harrington and will admit patient as Inpatient to medical floor for IV Abx and further monitoring of her cellulitis and leg wounds. Her BG is 382 and patient says that her sliding scale insulin dose is 14 units Humalog. This is provided to patient. - Vital Signs Vital signs: Temp Pulse Resp BP Pulse Ox 97.9 F 77 17 126/80 H 95 03/03/17 06:08 03/03/17 06:08 03/03/17 07:02 03/03/17 07:02 03/03/17 07:02 - Laboratory Result Diagrams: 03/03/17 06:35 03/03/17 06:35 Laboratory results interpreted by me: 03/03/17 03/03/17 06:35 06:35 RDW 15.1 H Sodium 136.8 L BUN 21 H Glucose 382 H AST 45 H ALT 56 H Alkaline Phosphatase 146 H Discharge - Discharge Clinical Impression: Bilateral lower leg cellulitis, Hyperglycemia Open leg wound Qualifiers: Encounter type: subsequent encounter Laterality: unspecified laterality Qualified Code(s): S81.809D - Unspecified open wound, unspecified lower leg, subsequent encounter Condition: Stable Disposition: ADMITTED INPATIENT Admitting Provider: Matthew Unit Admitted: Medical Floor Referrals: AC HARRINGTON MD [Primary Care Provider] - Follow up as needed
[2017-03-03 06:45] LABS: ABSOLUTE EOSINOPHILS # (AUTO) 0.2 10^3/uL (0.0-0.6); ABSOLUTE LYMPHOCYTES (AUTO) 1.4 10^3/uL (0.5-4.7); ABSOLUTE MONOCYTES (AUTO) 0.4 10^3/uL (0.1-1.4); ABSOLUTE NEUT (AUTO) 3.9 10^3/uL (1.7-8.2); BASOPHILS % (AUTO) 0.6 % (0-2); EOSINOPHILS % (AUTO) 2.6 % (0-6); HEMATOCRIT 39.5 % (36.0-47.0); HEMOGLOBIN 13.4 g/dL (12.0-15.5); HGB HCT DIFFERENCE 0.7; LYMPHOCYTES % (AUTO) 23.1 % (13-45); MEAN CORPUSCULAR HEMOGLOBIN 30.5 pg (27.0-33.4); MEAN CORPUSCULAR VOLUME 90 fl (80-97); RED CELL DISTRIBUTION WIDTH 15.1 % (11.5-14.0); SEGMENTED NEUTROPHILS % (AUTO) 66.7 % (42-78); VENOUS BLOOD BASE EXCESS -1.2 mmol/L; VENOUS BLOOD HCO3 25.6 mmol/L (20-32); VENOUS BLOOD PCO2 50.8 mmHg (35-63); VENOUS BLOOD PH 7.32 (7.30-7.42); WHITE BLOOD COUNT 5.9 10^3/uL (4.0-10.5)
[2017-03-03 06:59] LABS: ALANINE AMINOTRANSFERASE 56 U/L (9-52); ALBUMIN 3.9 g/dL (3.5-5.0); ALKALINE PHOSPHATASE 146 U/L (38-126); ANION GAP 12 (5-19); ASPARTATE AMINO TRANSFERASE 45 U/L (14-36); BILIRUBIN,DIRECT 0.3 mg/dL (0.0-0.4); BILIRUBIN,TOTAL 0.3 mg/dL (0.2-1.3); BLOOD UREA NITROGEN 21 mg/dL (7-20); CALCIUM 10.1 mg/dL (8.4-10.2); CARBON DIOXIDE 25 mmol/L (22-30); CHLORIDE 100 mmol/L (98-107); CREATININE RESULT 0.84 mg/dL (0.52-1.25); GLUCOSE 382 mg/dL (75-110); POTASSIUM 4.3 mmol/L (3.6-5.0); SODIUM 136.8 mmol/L (137-145); TOTAL PROTEIN 6.8 g/dL (6.3-8.2)
[2017-03-03] MEDS ORDERED: INSULIN LISPRO 100 UNIT/ML 3 ML VIAL SUBCUT ONE (07:37)
[2017-03-03] MEDS ORDERED: IPRATROPIUM/ALBUTEROL 0.5-2.5 MG/3 ML AMPUL NEB PRN (08:16)
[2017-03-03] MEDS ORDERED: GLUCAGON,HUMAN RECOMB 1 MG INJ IM PRN (08:21)
[2017-03-03] MEDS ORDERED: DEXTROSE 40% GEL 15 GM TUBE PO PRN ×2 (08:21)
[2017-03-03] MEDS ORDERED: DEXTROSE 50%-WATER 25 GM/50 ML DISP.SYRIN IV PRN ×2 (08:21)
[2017-03-03] MEDS ORDERED: INSULIN LISPRO 100 UNIT/ML 3 ML VIAL SUBCUT PRN (08:21)
--- NOTE | 2017-03-03 10:49 | PDOC H&P ---
History of Present Illness Admission Date/PCP: 03/03/17 08:17 AC HARRINGTON MD Patient complains of: Fever and lower extremity pain History of Present Illness: JOSE R CANALES is a 56 year old female This is a 56-year-old female with a type 2 diabetes uncontrolled and a history of the hypertensions hyperlipidemia history of the peripheral vascular disease status post amputations in the left great toe and history of the pulmonary embolism status post IVC filter on top of that patient is a noncompliance went to the [facility] for the right and the left lower extremity abrasions and the patient was given Keflex came to the emergency departments given clindamycin's. Patients came to the office couple of days back will switch back to the Bactrim patients refused for any blood work and patient was running a fever came to the emergency departments patient's white count was normal but at this point patient decided to admit in the hospital for further evaluations and IV antibiotic She is denied any chest pain denied any shortness of the breath Patient denied any heart problems in the past but the record was doing patient have some congestive heart failure Patient have a history of the pulmonary embolism up to the great toe surgery and [place] last yr and patient was putting in the IVC filter at the times Is also seen by Dr. Singer in the [place] for IVC filter removal unable to remove it couple of months back Past Medical History Cardiac Medical History: Reports: Congestive Heart Failure, Coronary Artery Disease, Hyperlipidema, Hypertension, Pulmonary Embolism Pulmonary Medical History: Reports: Asthma, Bronchitis, Chronic Obstructive Pulmonary Disease (COPD), Intubation, Pneumonia, Respiratory Failure Neurological Medical History: Reports: Seizures Endocrine Medical History: Reports: Diabetes Mellitus Type 2, Hypothyroidism GI Medical History: Reports: Gastroesophageal Reflux Disease Psychiatric Medical History: Reports: Depression Infectious Medical History: Reports: Methicillin-Resistant Staph Aureus, Vancomycin-Resistant Enterococci Past Surgical History Past Surgical History: Reports: Appendectomy, Orthopedic Surgery - L 1st toe amputation, R ankle recon, R elbow pin, L rotator cuff, Tonsillectomy, Vascular Surgery, Other - Multiple I&D's, Colonoscopy, Colt filter placement Social History Smoking Status: Current Some Day Smoker Cigarettes Packs Per Day: 0.5 Number of Years Smokin Last Time Smoked: today Frequency of Alcohol Use: None Hx Recreational Drug Use: No Drugs: None Hx Prescription Drug Abuse: No - Advance Directive Resuscitation Status: Full Code Family History Family History: Reviewed & Not Pertinent, CAD, DM, Hypertension Parental Family History Reviewed: Yes Children Family History Reviewed: Yes Sibling(s) Family History Reviewed.: Yes Medication/Allergy Allergies/Adverse Reactions: acetaminophen [From Tylenol] Adverse Reaction (Mild, Verified 02/20/17 07:31) Nausea Review of Systems Constitutional: ABSENT: chills, fever(s), headache(s), weight gain, weight loss Eyes: ABSENT: visual disturbances Ears: ABSENT: hearing changes Cardiovascular: ABSENT: chest pain, dyspnea on exertion, edema, orthropnea, palpitations Respiratory: ABSENT: cough, hemoptysis Gastrointestinal: ABSENT: abdominal pain, constipation, diarrhea, hematemesis, hematochezia, nausea, vomiting Genitourinary: ABSENT: dysuria, hematuria Musculoskeletal: ABSENT: joint swelling Integumentary: ABSENT: rash, wounds Neurological: ABSENT: abnormal gait, abnormal speech, confusion, dizziness, focal weakness, syncope Psychiatric: ABSENT: anxiety, depression, homidical ideation, suicidal ideation Endocrine: ABSENT: cold intolerance, heat intolerance, menstrual abnormalities, polydipsia, polyuria Hematologic/Lymphatic: ABSENT: easy bleeding, easy bruising, lymphadenopathy Physical Exam Vital Signs: Temp Pulse Resp BP Pulse Ox 97.7 F 74 24 H 134/60 H 93 03/03/17 09:59 03/03/17 09:59 03/03/17 09:59 03/03/17 09:59 03/03/17 09:59 Intake & Output 03/02/17 03/03/17 03/04/17 06:59 06:59 06:59 Weight 100.839 kg General appearance: PRESENT: no acute distress, well-developed, well-nourished Head exam: PRESENT: atraumatic, normocephalic Eye exam: PRESENT: conjunctiva pink, EOMI, PERRLA. ABSENT: scleral icterus Ear exam: PRESENT: normal external ear exam Mouth exam: PRESENT: moist, tongue midline Neck exam: PRESENT: full ROM. ABSENT: carotid bruit, JVD, lymphadenopathy, thyromegaly Respiratory exam: PRESENT: clear to auscultation rozina Cardiovascular exam: PRESENT: RRR. ABSENT: diastolic murmur, rubs, systolic murmur Pulses: PRESENT: normal dorsalis pedis pul, +2 pedal pulses bilateral Vascular exam: PRESENT: normal capillary refill GI/Abdominal exam: PRESENT: normal bowel sounds, soft. ABSENT: distended, guarding, mass, organolmegaly, rebound, tenderness Rectal exam: PRESENT: deferred Extremities exam: PRESENT: pedal edema Additional comments: In the left lower extremity there was mild redness about the ankle with the scaly lesion in the right lower extremity some mild redness is present Patient's peripheral pulses are very poor to palpable Neurological exam: PRESENT: alert, awake, oriented to person, oriented to place , oriented to time, oriented to situation, CN II-XII grossly intact. ABSENT: motor sensory deficit Psychiatric exam: PRESENT: appropriate affect, normal mood. ABSENT: homicidal ideation, suicidal ideation Skin exam: PRESENT: dry, intact, warm. ABSENT: cyanosis, rash Assessment & Plan - Diagnosis (1) Bilateral lower leg cellulitis Is this a current diagnosis for this admission?: Yes Plan: Start the patient on IV antibiotic (2) Open leg wound Qualifiers: Encounter type: subsequent encounter Laterality: unspecified laterality Qualified Code(s): S81.809D - Unspecified open wound, unspecified lower leg, subsequent encounter Is this a current diagnosis for this admission?: Yes Plan: Insert the general surgery for further evaluations (3) COPD exacerbation Is this a current diagnosis for this admission?: Yes Plan: Start DuoNeb nebulizer (4) Chronic pain Qualifiers: Chronic pain type: chronic pain syndrome Is this a current diagnosis for this admission?: Yes (5) Coronary artery disease Qualifiers: Coronary Disease-Associated Artery/Lesion type: unspecified vessel or lesion type Is this a current diagnosis for this admission?: Yes Plan: Get the medical record so far patients denied any heart stent (6) Diabetes mellitus Qualifiers: Diabetes mellitus type: type 2 Diabetes mellitus complication status: with circulatory complication Is this a current diagnosis for this admission?: Yes Plan: We will get the diabetic education's patient is very noncompliance to the diet will continues this sliding scale and a continuous insulin (7) Gastroesophageal reflux disease Qualifiers: Esophagitis presence: without esophagitis Qualified Code(s): K21.9 - Gastro -esophageal reflux disease without esophagitis Is this a current diagnosis for this admission?: Yes (8) History of pulmonary embolism Is this a current diagnosis for this admission?: Yes Plan: There is post IVC filter will continues to Lovenox 40 mg subcu for DVT prophylaxis (9) Hyperlipidemia Qualifiers: Hyperlipidemia type: unspecified Qualified Code(s): E78.5 - Hyperlipidemia , unspecified Is this a current diagnosis for this admission?: Yes (10) Hypothyroidism Qualifiers: Hypothyroidism type: unspecified Qualified Code(s): E03.9 - Hypothyroidism , unspecified Is this a current diagnosis for this admission?: Yes (11) Morbid obesity Is this a current diagnosis for this admission?: Yes - Time Medications reviewed and adjusted accordingly: Yes Anticipated discharge: Home - Inpatient Certification Medical Necessity: Significant Comorbidiites Make Outpatient Treatment Too Risky , Need for IV Antibiotics Post Hospital Care: D/C Optical Worker Documentation - Plan Summary Plan Summary: Continues to current medications
[2017-03-03] MEDS: PIPERACILLIN SODIUM/TAZOBACTAM 3.375 GM in NORMAL SALINE 100 ML IV SCH ×3 (11:37→23:38)
[2017-03-03] MEDS: ENOXAPARIN SODIUM INJ 40 MG/0.4 ML DISP.SYRIN SUBCUT SCH (11:38)
[2017-03-03] MEDS: OXYCODONE HCL IR 5 MG TABLET PO PRN ×2 (11:43→20:34)
[2017-03-03] MEDS: INSULIN REG, HUMAN 100 UNIT/ML 3 ML VIAL (PYX) SUBCUT PRN ×3 (11:44→21:19)
[2017-03-03] MEDS: CLINDAMYCIN 600 MG/D5W RTU 600 MG/50 ML RTUPB IV SCH ×2 (12:56→21:20)
[2017-03-03] MEDS: BACLOFEN 20 MG TABLET PO SCH (21:19)
[2017-03-03] MEDS: SIMVASTATIN 10 MG TABLET PO SCH (21:20)
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
[2017-03-04] MEDS: CLINDAMYCIN 600 MG/D5W RTU 600 MG/50 ML RTUPB IV SCH (05:09)
[2017-03-04] MEDS: PIPERACILLIN SODIUM/TAZOBACTAM 3.375 GM in NORMAL SALINE 100 ML IV SCH ×3 (05:09→17:19)
[2017-03-04 06:20] LABS: ALANINE AMINOTRANSFERASE 54 U/L (9-52); ALBUMIN 3.2 g/dL (3.5-5.0); ALKALINE PHOSPHATASE 95 U/L (38-126); ANION GAP 9 (5-19); ASPARTATE AMINO TRANSFERASE 46 U/L (14-36); BILIRUBIN,DIRECT 0.3 mg/dL (0.0-0.4); BILIRUBIN,TOTAL 0.3 mg/dL (0.2-1.3); BLOOD UREA NITROGEN 18 mg/dL (7-20); CALCIUM 9.2 mg/dL (8.4-10.2); CARBON DIOXIDE 25 mmol/L (22-30); CHLORIDE 103 mmol/L (98-107); CREATININE RESULT 0.82 mg/dL (0.52-1.25); GLUCOSE 258 mg/dL (75-110); POTASSIUM 4.5 mmol/L (3.6-5.0); SODIUM 136.7 mmol/L (137-145); TOTAL PROTEIN 5.8 g/dL (6.3-8.2)
[2017-03-04 07:23] LABS: ABSOLUTE EOSINOPHILS # (AUTO) 0.2 10^3/uL (0.0-0.6); ABSOLUTE LYMPHOCYTES (AUTO) 0.8 10^3/uL (0.5-4.7); ABSOLUTE MONOCYTES (AUTO) 0.3 10^3/uL (0.1-1.4); BASOPHILS % (AUTO) 0.5 % (0-2); EOSINOPHILS % (AUTO) 3.7 % (0-6); HEMATOCRIT 36.1 % (36.0-47.0); HEMOGLOBIN 12.1 g/dL (12.0-15.5); HGB HCT DIFFERENCE 0.2; LYMPHOCYTES % (AUTO) 18.7 % (13-45); MEAN CORPUSCULAR HEMOGLOBIN 30.6 pg (27.0-33.4); MEAN CORPUSCULAR HGB CONC 33.5 g/dL (32.0-36.0); MEAN CORPUSCULAR VOLUME 91 fl (80-97); RED BLOOD COUNT 3.96 10^6/uL (3.72-5.28); RED CELL DISTRIBUTION WIDTH 14.9 % (11.5-14.0); SEGMENTED NEUTROPHILS % (AUTO) 69.1 % (42-78); WHITE BLOOD COUNT 4.3 10^3/uL (4.0-10.5)
[2017-03-04] MEDS ORDERED: ALBUTEROL SULFATE HFA (90 MCG/PUFF) 8 GM MDI (1 MDI/ER DISP) IH SCH (08:00)
--- NOTE | 2017-03-04 08:32 | PDOC PROGRESS REPORT ---
Subjective Progress Note for:: 03/04/17 Subjective:: Patient difficult to arouse but once she does, she is reasonably appropriate. Physical Exam Vital Signs: Temp Pulse Resp BP Pulse Ox 98.4 F 65 17 104/41 L 93 03/03/17 20:16 03/04/17 02:00 03/03/17 20:16 03/03/17 20:16 03/03/17 20:16 Intake & Output 03/03/17 03/04/17 03/05/17 06:59 06:59 06:59 Intake Total 900 Balance 900 Weight 100.839 kg General appearance: PRESENT: no acute distress, other - Vital signs are stable. She is well-perfused Musculoskeletal exam: PRESENT: other - Left lower extremity examined. Patient status post left great toe amputation, remotely. Left anterior pretibial wounds have some eschar. The surrounding skin is erythematous but appears to be subsiding based on perimeter skin markings. Results Laboratory Results: 03/04/17 07:05 03/04/17 05:04 03/04/17 03/04/17 03/04/17 05:04 05:04 07:05 WBC Cancelled 4.3 RBC Cancelled 3.96 Hgb Cancelled 12.1 Hct Cancelled 36.1 MCV Cancelled 91 MCH Cancelled 30.6 MCHC Cancelled 33.5 RDW Cancelled 14.9 H Plt Count Cancelled 131 L Seg Neutrophils % Cancelled 69.1 Lymphocytes % Cancelled 18.7 Monocytes % Cancelled 8.0 Eosinophils % Cancelled 3.7 Basophils % Cancelled 0.5 Absolute Neutrophils Cancelled 3.0 Absolute Lymphocytes Cancelled 0.8 Absolute Monocytes Cancelled 0.3 Absolute Eosinophils Cancelled 0.2 Absolute Basophils Cancelled 0.0 Sodium 136.7 L Potassium 4.5 Chloride 103 Carbon Dioxide 25 Anion Gap 9 BUN 18 Creatinine 0.82 Est GFR ( Amer) > 60 Est GFR (Non-Af Amer) > 60 Glucose 258 H Calcium 9.2 Total Bilirubin 0.3 AST 46 H ALT 54 H Alkaline Phosphatase 95 Total Protein 5.8 L Albumin 3.2 L Assessment & Plan - Diagnosis (1) Bilateral lower leg cellulitis Is this a current diagnosis for this admission?: Yes Plan: Clinically improved based on reduction in erythema, edema. There is limited eschar of the pretibial area that should be washed off with a scrub brush Plan: 1. Start Hibiclens scrubbing to the left lower extremity 2. Apply Xeroform to the open de-epithelialized areas and cover with 4 x 4 and Kerlix. 3. We will sign off for now. Reconsult surgery if needed.
[2017-03-04] MEDS: ALBUTEROL SULFATE HFA (90 MCG/PUFF) 200 PUFF/8.5 GM MDI IH SCH (08:46)
[2017-03-04] MEDS: SILVER SULFADIAZINE 1% CREAM 50 GM TP SCH (08:46)
[2017-03-04] MEDS: DICLOFENAC SODIUM 50 MG TABLET.DR PO SCH ×2 (08:46→17:18)
[2017-03-04] MEDS: BACLOFEN 20 MG TABLET PO SCH (08:46)
[2017-03-04] MEDS: ENOXAPARIN SODIUM INJ 40 MG/0.4 ML DISP.SYRIN SUBCUT SCH (08:57)
[2017-03-04] MEDS: GABAPENTIN 100 MG CAPSULE PO SCH ×3 (08:59→17:18)
[2017-03-04] MEDS: LEVOTHYROXINE SODIUM 0.088 MG TABLET PO SCH (09:00)
[2017-03-04] MEDS: OXYCODONE HCL IR 5 MG TABLET PO PRN ×2 (09:04→17:52)
[2017-03-04] MEDS: ONDANSETRON HCL INJ/PF 4 MG/2 ML SDV IV PRN ×2 (09:05→13:25)
[2017-03-04] MEDS ORDERED: INSULIN GLARGINE,HUM.REC.ANLOG 1,000 UNIT/10 ML UNIT SUBCUT SCH ×2 (10:00→18:00)
[2017-03-04] MEDS ORDERED: FENOFIBRATE NANOCRYSTALLIZED 145 MG TABLET PO SCH (10:00)
[2017-03-04] MEDS ORDERED: BACLOFEN 20 MG TABLET PO SCH (10:01)
[2017-03-04] MEDS ORDERED: BACLOFEN 20 MG TABLET PO PRN (10:03)
[2017-03-04] MEDS ORDERED: BACLOFEN 10 MG TABLET PO PRN (10:10)
--- NOTE | 2017-03-04 10:56 | PDOC PROGRESS REPORT ---
Subjective Progress Note for:: 03/04/17 Subjective:: Patient is currently doing well. There is no fever. Since otherwise denied any chest pain that any shortness of the breath Seen by general surgery and suggest that dressing change and follow outpatients Doppler scheduled Physical Exam Vital Signs: Temp Pulse Resp BP Pulse Ox 97.8 F 72 20 104/49 L 90 L 03/04/17 07:28 03/04/17 07:28 03/04/17 07:28 03/04/17 07:28 03/04/17 07:28 Intake & Output 03/03/17 03/04/17 03/05/17 06:59 06:59 06:59 Intake Total 900 Balance 900 Weight 100.839 kg General appearance: PRESENT: no acute distress, well-developed, well-nourished Head exam: PRESENT: atraumatic, normocephalic Eye exam: PRESENT: conjunctiva pink, EOMI, PERRLA. ABSENT: scleral icterus Ear exam: PRESENT: normal external ear exam Mouth exam: PRESENT: moist, tongue midline Neck exam: PRESENT: full ROM. ABSENT: carotid bruit, JVD, lymphadenopathy, thyromegaly Cardiovascular exam: PRESENT: RRR. ABSENT: diastolic murmur, rubs, systolic murmur Pulses: PRESENT: normal dorsalis pedis pul, +2 pedal pulses bilateral Vascular exam: PRESENT: normal capillary refill GI/Abdominal exam: PRESENT: normal bowel sounds, soft. ABSENT: distended, guarding, mass, organolmegaly, rebound, tenderness Rectal exam: PRESENT: deferred Additional comments: Bilateral ulceration on the lower leg with mild redness is present Neurological exam: PRESENT: alert, awake, oriented to person, oriented to place , oriented to time, oriented to situation, CN II-XII grossly intact. ABSENT: motor sensory deficit Psychiatric exam: PRESENT: appropriate affect, normal mood. ABSENT: homicidal ideation, suicidal ideation Skin exam: PRESENT: dry, intact, warm. ABSENT: cyanosis, rash Results Laboratory Results: 03/04/17 07:05 03/04/17 05:04 03/04/17 03/04/17 03/04/17 05:04 05:04 07:05 WBC Cancelled 4.3 RBC Cancelled 3.96 Hgb Cancelled 12.1 Hct Cancelled 36.1 MCV Cancelled 91 MCH Cancelled 30.6 MCHC Cancelled 33.5 RDW Cancelled 14.9 H Plt Count Cancelled 131 L Seg Neutrophils % Cancelled 69.1 Lymphocytes % Cancelled 18.7 Monocytes % Cancelled 8.0 Eosinophils % Cancelled 3.7 Basophils % Cancelled 0.5 Absolute Neutrophils Cancelled 3.0 Absolute Lymphocytes Cancelled 0.8 Absolute Monocytes Cancelled 0.3 Absolute Eosinophils Cancelled 0.2 Absolute Basophils Cancelled 0.0 Sodium 136.7 L Potassium 4.5 Chloride 103 Carbon Dioxide 25 Anion Gap 9 BUN 18 Creatinine 0.82 Est GFR ( Amer) > 60 Est GFR (Non-Af Amer) > 60 Glucose 258 H Calcium 9.2 Total Bilirubin 0.3 AST 46 H ALT 54 H Alkaline Phosphatase 95 Total Protein 5.8 L Albumin 3.2 L Assessment & Plan - Diagnosis (1) Bilateral lower leg cellulitis Is this a current diagnosis for this admission?: Yes Plan: I think patients remain afebrile we will DC the IV antibiotic and start on the p.o. antibiotic (2) Open leg wound Qualifiers: Encounter type: subsequent encounter Laterality: unspecified laterality Qualified Code(s): S81.809D - Unspecified open wound, unspecified lower leg, subsequent encounter Is this a current diagnosis for this admission?: Yes Plan: Follow with the general surgery (3) COPD exacerbation Is this a current diagnosis for this admission?: Yes Plan: Start DuoNeb nebulizer (4) Chronic pain Qualifiers: Chronic pain type: chronic pain syndrome Is this a current diagnosis for this admission?: Yes Plan: Continues as needed medications (5) Coronary artery disease Qualifiers: Coronary Disease-Associated Artery/Lesion type: unspecified vessel or lesion type Is this a current diagnosis for this admission?: Yes Plan: Get the medical record so far patients denied any heart stent (6) Diabetes mellitus Qualifiers: Diabetes mellitus type: type 2 Diabetes mellitus complication status: with circulatory complication Is this a current diagnosis for this admission?: Yes Plan: Increase the Lantus (7) Gastroesophageal reflux disease Qualifiers: Esophagitis presence: without esophagitis Qualified Code(s): K21.9 - Gastro -esophageal reflux disease without esophagitis Is this a current diagnosis for this admission?: Yes Plan: Continues current medications (8) History of pulmonary embolism Is this a current diagnosis for this admission?: Yes Plan: There is post IVC filter will continues to Lovenox 40 mg subcu for DVT prophylaxis (9) Hyperlipidemia Qualifiers: Hyperlipidemia type: unspecified Qualified Code(s): E78.5 - Hyperlipidemia , unspecified Is this a current diagnosis for this admission?: Yes (10) Hypothyroidism Qualifiers: Hypothyroidism type: unspecified Qualified Code(s): E03.9 - Hypothyroidism , unspecified Is this a current diagnosis for this admission?: Yes (11) Morbid obesity Is this a current diagnosis for this admission?: Yes - Time Time Spent with patient: 15-24 minutes Medications reviewed and adjusted accordingly: Yes Anticipated discharge: Home Within: within 24 hours - Inpatient Certification Medical Necessity: Need Close Monitoring Due to Risk of Patient Decompensation, Need for IV Antibiotics 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 antibiotic
[2017-03-04] MEDS ORDERED: LANSOPRAZOLE 15 MG TAB.RAP.DR PO ONE (11:00)
[2017-03-04] MEDS: INSULIN REG, HUMAN 100 UNIT/ML 3 ML VIAL (PYX) SUBCUT PRN ×3 (13:26→21:46)
[2017-03-04] MEDS: LANSOPRAZOLE 15 MG TAB.RAP.DR PO SCH (17:18)
[2017-03-04] MEDS: INSULIN GLARGINE,HUM.REC.ANLOG 1,000 UNIT/10 ML UNIT SUBCUT SCH (17:20)
[2017-03-04] MEDS: SIMVASTATIN 10 MG TABLET PO SCH (21:08)
[2017-03-05] MEDS: PIPERACILLIN SODIUM/TAZOBACTAM 3.375 GM in NORMAL SALINE 100 ML IV SCH ×2 (00:25→06:59)
[2017-03-05 06:53] LABS: ANION GAP 7 (5-19); BLOOD UREA NITROGEN 13 mg/dL (7-20); CALCIUM 9.5 mg/dL (8.4-10.2); CARBON DIOXIDE 29 mmol/L (22-30); CHLORIDE 103 mmol/L (98-107); CREATININE RESULT 0.67 mg/dL (0.52-1.25); GLUCOSE 250 mg/dL (75-110); POTASSIUM 4.3 mmol/L (3.6-5.0); SODIUM 138.5 mmol/L (137-145)
[2017-03-05] MEDS: LANSOPRAZOLE 15 MG TAB.RAP.DR PO SCH ×2 (06:59→08:41)
[2017-03-05 07:57] LABS: ABSOLUTE EOSINOPHILS # (AUTO) 0.1 10^3/uL (0.0-0.6); ABSOLUTE LYMPHOCYTES (AUTO) 0.9 10^3/uL (0.5-4.7); ABSOLUTE MONOCYTES (AUTO) 0.3 10^3/uL (0.1-1.4); ABSOLUTE NEUT (AUTO) 3.1 10^3/uL (1.7-8.2); BASOPHILS % (AUTO) 0.8 % (0-2); EOSINOPHILS % (AUTO) 3.1 % (0-6); HEMATOCRIT 35.2 % (36.0-47.0); HGB HCT DIFFERENCE 0.8; LYMPHOCYTES % (AUTO) 20.1 % (13-45); MEAN CORPUSCULAR HEMOGLOBIN 30.4 pg (27.0-33.4); MEAN CORPUSCULAR HGB CONC 34.2 g/dL (32.0-36.0); MEAN CORPUSCULAR VOLUME 89 fl (80-97); MONOCYTES % (AUTO) 7.2 % (3-13); RED BLOOD COUNT 3.96 10^6/uL (3.72-5.28); RED CELL DISTRIBUTION WIDTH 15.2 % (11.5-14.0); SEGMENTED NEUTROPHILS % (AUTO) 68.8 % (42-78); WHITE BLOOD COUNT 4.6 10^3/uL (4.0-10.5)
[2017-03-05] MEDS: OXYCODONE HCL IR 5 MG TABLET PO PRN (08:41)
[2017-03-05 08:57] VITALS: BP 114/62
--- NOTE | 2017-03-05 09:32 | PDOC DISCHARGE SUMMARY ---
General - Admit/Disc Date/PCP Admission Date/Primary Care Provider: 03/04/17 15:54 AC HARRINGTON MD Discharge Date: 03/05/17 - Discharge Diagnosis (1) Bilateral lower leg cellulitis Is this a current diagnosis for this admission?: Yes Summary: Currently all stable patient seen by general surgery and suggest the dressing changes but patient's refused to put the dressings Patient at this points will start on the p.o. antibioticAnd discussed with the patient's to follow with the wound care and surgery but patients refused to follow with the wound care clinic (2) Open leg wound Is this a current diagnosis for this admission?: Yes Summary: Patient is to follow with the wound care clinic but as per patient's refused continues to p.o. antibiotic and dressing changes as instructed by the general surgery which patient already refused in the hospital I hope the patient's can do it at home (3) COPD exacerbation Is this a current diagnosis for this admission?: Yes Summary: Currently all stable (4) Chronic pain Is this a current diagnosis for this admission?: Yes Summary: Discussed with the patient's continues to gabapentin and avoid any narcotics (5) Coronary artery disease Is this a current diagnosis for this admission?: Yes Summary: Follow outpatients cardiology (6) Diabetes mellitus Is this a current diagnosis for this admission?: Yes Summary: Adjust the Lantus 70 units twice a day patient is very noncompliance I believe with the diet also need to see court assistant as outpatient (7) Gastroesophageal reflux disease Is this a current diagnosis for this admission?: Yes Summary: Start the patient on a PPI (8) History of pulmonary embolism Is this a current diagnosis for this admission?: Yes Summary: Status post IVC filter (9) Hyperlipidemia Is this a current diagnosis for this admission?: Yes (10) Hypothyroidism Is this a current diagnosis for this admission?: Yes Summary: Insert current medications (11) Morbid obesity Is this a current diagnosis for this admission?: Yes (12) Peripheral vascular disease Is this a current diagnosis for this admission?: Yes Summary: Patient already seen by the Dr. Singer in the [place] in the past but patients do not want to see him back again patient's thinks he is not a good doctor which I do not believe it with the patient's very noncompliance - Additional Information Resuscitation Status: Full Code Discharge Diet: Diabetic Discharge Activity: Activity As Tolerated Home Medications: Albuterol Sulfate [Proair HFA] 2 puff IH DAILY 03/03/17 Baclofen [Baclofen 20 mg Tablet] 20 mg PO QID 03/03/17 Diclofenac Sodium [Voltaren 50 mg Tablet.] 50 mg PO BID 03/03/17 Fenofibrate 160 mg PO DAILY 03/03/17 Gabapentin 100 mg PO TID 03/03/17 Insulin Glargine,Hum.rec.anlog [Lantus Insulin 100 Unit/1 ml 10 ml] 60 unit SUBCUT BID 03/03/17 Levothyroxine Sodium [Synthroid 0.088 mg Tablet] 88 mcg PO DAILY 03/03/17 Simvastatin 20 mg PO DAILY 03/03/17 Lansoprazole [Prevacid 15 mg Odt Tablet] 15 mg PO BID@0600,1700 #60 tab.rap. 03/05/17 Sulfamethoxazole/Trimethoprim [Bactrim Ds Tablet] 1 each PO BID #14 tablet 03/05 History of Present Illness History of Present Illness: JOSE R CANALES is a 56 year old female This is a 56-year-old female with a type 2 diabetes uncontrolled and a history of the hypertensions hyperlipidemia history of the peripheral vascular disease status post amputations in the left great toe and history of the pulmonary embolism status post IVC filter on top of that patient is a noncompliance went to the [facility] for the right and the left lower extremity abrasions and the patient was given Keflex came to the emergency departments given clindamycin's. Patients came to the office couple of days back will switch back to the Bactrim patients refused for any blood work and patient was running a fever came to the emergency departments patient's white count was normal but at this point patient decided to admit in the hospital for further evaluations and IV antibiotic She is denied any chest pain denied any shortness of the breath Patient denied any heart problems in the past but the record was doing patient have some congestive heart failure Patient have a history of the pulmonary embolism up to the great toe surgery and [place] last yr and patient was putting in the IVC filter at the times Is also seen by Dr. Singer in the [facility] for IVC filter removal unable to remove it couple of months back Hospital Course Hospital Course: This 56-year-old female she presented to the emergency department with the history of the bilateral lower extremity cellulitis with open wound which is very noncompliance from several medication in the dietAnd at this point patient was admitting in the hospital for IV antibioticGeneral surgery consult Patient's remained afebrile throughout the hospitalizations patient's white count is all normal and the patient other medical problem was stable Patient seen by general surgery and suggest a dressing change and follow outpatient in the wound care clinic or the general surgery clinic Patients refused to suggest dressing in the hospital and patients refused to go to the wound care clinic At this point patient's discharge with the p.o. antibiotic while afebrile and white count is normal and suggest a follow outpatient as above The patient's continues to noncompliance with uncontrolled diabetes and patient' s underlying peripheral vascular disease probably not a good prognosis Discussed with the patient extensively in the room with all the test reports and follow-up plans Patients constantly asking the pain medications and I think patient should be get a benefit only for the gabapentin not too much narcotic medications Physical Exam Vital Signs: Temp Pulse Resp BP Pulse Ox 97.7 F 66 20 114/62 94 03/05/17 07:39 03/05/17 07:39 03/05/17 07:39 03/05/17 07:39 03/05/17 07:39 Intake & Output 03/04/17 03/05/17 03/06/17 06:59 06:59 06:59 Intake Total 1047 Output Total 400 Balance 647 Weight 103.1 kg General appearance: PRESENT: no acute distress, well-developed, well-nourished Head exam: PRESENT: atraumatic, normocephalic Eye exam: PRESENT: conjunctiva pink, EOMI, PERRLA. ABSENT: scleral icterus Ear exam: PRESENT: normal external ear exam Mouth exam: PRESENT: moist, tongue midline Neck exam: PRESENT: full ROM. ABSENT: carotid bruit, JVD, lymphadenopathy, thyromegaly Cardiovascular exam: PRESENT: RRR. ABSENT: diastolic murmur, rubs, systolic murmur Pulses: PRESENT: normal dorsalis pedis pul, +2 pedal pulses bilateral Vascular exam: PRESENT: normal capillary refill GI/Abdominal exam: PRESENT: normal bowel sounds, soft. ABSENT: distended, guarding, mass, organolmegaly, rebound, tenderness Rectal exam: PRESENT: deferred Additional comments: Bilateral lower extremities abrasions with some mild redness is present Neurological exam: PRESENT: alert, awake, oriented to person, oriented to place , oriented to time, oriented to situation, CN II-XII grossly intact. ABSENT: motor sensory deficit Psychiatric exam: PRESENT: appropriate affect, normal mood. ABSENT: homicidal ideation, suicidal ideation Skin exam: PRESENT: dry, intact, warm. ABSENT: cyanosis, rash Results Laboratory Results: 03/05/17 07:49 03/05/17 06:29 03/05/17 03/05/17 03/05/17 06:29 06:29 07:49 WBC Cancelled 4.6 RBC Cancelled 3.96 Hgb Cancelled 12.0 Hct Cancelled 35.2 L MCV Cancelled 89 MCH Cancelled 30.4 MCHC Cancelled 34.2 RDW Cancelled 15.2 H Plt Count Cancelled 200 Seg Neutrophils % Cancelled 68.8 Lymphocytes % Cancelled 20.1 Monocytes % Cancelled 7.2 Eosinophils % Cancelled 3.1 Basophils % Cancelled 0.8 Absolute Neutrophils Cancelled 3.1 Absolute Lymphocytes Cancelled 0.9 Absolute Monocytes Cancelled 0.3 Absolute Eosinophils Cancelled 0.1 Absolute Basophils Cancelled 0.0 Sodium 138.5 Potassium 4.3 Chloride 103 Carbon Dioxide 29 Anion Gap 7 BUN 13 Creatinine 0.67 Est GFR ( Amer) > 60 Est GFR (Non-Af Amer) > 60 Glucose 250 H Calcium 9.5 Plan Time Spent: Greater than 30 Minutes - Patient's discharge home with the stable conditions with the p.o. antibiotic and follow instructions to follow with the general surgery or wound care clinic for further evaluation about the underlying peripheral vascular disease and following a one-week in office
[2017-03-05] MEDS: GABAPENTIN 100 MG CAPSULE PO SCH (09:35)
[2017-03-05] MEDS: LEVOTHYROXINE SODIUM 0.088 MG TABLET PO SCH (09:35)
[2017-03-05] MEDS: INSULIN GLARGINE,HUM.REC.ANLOG 1,000 UNIT/10 ML UNIT SUBCUT SCH (09:36)
[2017-03-05] MEDS: DICLOFENAC SODIUM 50 MG TABLET.DR PO SCH (09:36)
[2017-03-05] MEDS: ALBUTEROL SULFATE HFA (90 MCG/PUFF) 200 PUFF/8.5 GM MDI IH SCH (09:37)
[2017-03-05] MEDS: SILVER SULFADIAZINE 1% CREAM 50 GM TP SCH (09:45)
[2017-03-05] MEDS: ENOXAPARIN SODIUM INJ 40 MG/0.4 ML DISP.SYRIN SUBCUT SCH (09:45)
== END 2017-03-05 10:01 | disposition home or self-care (01) | DRG 603 ==
LOC: ER 06:02 → 4S 08:17 → UNDOADMIN 08:17 → EH 08:17 → UNDOADMIN 08:19 → EH 09:57 → 4S 09:57 → UNDOADMIN 03-04 15:54 → UNDODISIN 03-05 10:01
PROVIDERS: ADMIT Family Medicine; ATTEND Family Medicine
DX: L03.116 Cellulitis of left lower limb (principal); J44.1 Chronic obstructive pulmonary disease with (acute) exacerbation; L97.329 Non-pressure chronic ulcer of left ankle with unspecified severity; E11.622 Type 2 diabetes mellitus with other skin ulcer; L03.115 Cellulitis of right lower limb; S81.809D Unspecified open wound, unspecified lower leg, subsequent encounter; G89.29 Other chronic pain; I25.10 Atherosclerotic heart disease of native coronary artery without angina pectoris; K21.9 Gastro-esophageal reflux disease without esophagitis; Z86.711 Personal history of pulmonary embolism; E78.5 Hyperlipidemia, unspecified; E03.9 Hypothyroidism, unspecified; E66.01 Morbid (severe) obesity due to excess calories; Z68.38 Body mass index [BMI] 38.0-38.9, adult; E11.51 Type 2 diabetes mellitus with diabetic peripheral angiopathy without gangrene; Z79.4 Long term (current) use of insulin; Z79.899 Other long term (current) drug therapy; Z89.412 Acquired absence of left great toe; Z86.14 Personal history of Methicillin resistant Staphylococcus aureus infection; F17.210 Nicotine dependence, cigarettes, uncomplicated; Z88.6 Allergy status to analgesic agent
CPT/HCPCS: 36415; 80048; 80053; 82803; 82962; 83605; 85025; 87040; 87070; 87077; 87205; J1650; J1815; J2270; J2405; J2543; J3370; J3490; J7030

== ENCOUNTER 2017-07-05 19:04 | Emergency (ER) | payer MEDICAID ==
[2017-07-05 19:45] VITALS: BP 148/68
--- NOTE | 2017-07-05 20:52 | ER Document Report ---
ED Medical Screen (RME) - General Chief Complaint: Bloody Stools Stated Complaint: BLOOD IN STOOL Time Seen by Provider: 07/05/17 20:19 Mode of Arrival: Ambulatory Information source: Patient Notes: 57-year-old female history of gastric ulcer with previous GI bleed presents with complaints of one-week duration nausea vomiting diarrhea and noticed blood this morning. Patient notes that his doctor kelly Huggins have greeted and performed a rapid initial assessment of this patient. A comprehensive ED assessment and evaluation of the patient, analysis of test results and completion of the medical decision making process will be conducted by additional ED providers. PHYSICAL EXAMINATION: GENERAL: Well-appearing, well-nourished and in no acute distress. HEAD: Atraumatic, normocephalic. EYES: Pupils equal round extraocular movements intact, conjunctiva are normal. ENT: Nares patent NECK: Normal range of motion LUNGS: No respiratory distress Musculoskeletal: Normal range of motion NEUROLOGICAL: Normal speech, normal gait. PSYCH: Normal mood, normal affect. SKIN: Eczema TRAVEL OUTSIDE OF THE [place] IN LAST 30 DAYS: No - Related Data Allergies/Adverse Reactions: acetaminophen [From Tylenol] Adverse Reaction (Mild, Verified 07/05/17 19:07) Nausea Past Medical History - Social History Chew tobacco use (# tins/day): No Frequency of alcohol use: None Drug Abuse: None - Past Medical History Cardiac Medical History: Reports: Hx Congestive Heart Failure, Hx Coronary Artery Disease, Hx Hypercholesterolemia, Hx Hypertension, Hx Pulmonary Embolism Pulmonary Medical History: Reports: Hx Asthma, Hx Bronchitis, Hx COPD, Hx Pneumonia, Hx Intubation, Hx Respiratory Failure Neurological Medical History: Reports: Hx Seizures Endocrine Medical History: Reports: Hx Diabetes Mellitus Type 2, Hx Hypothyroidism Renal/ Medical History: Denies: Hx Peritoneal Dialysis GI Medical History: Reports: Hx Gastroesophageal Reflux Disease Musculoskeltal Medical History: Reports Hx Musculoskeletal Trauma Psychiatric Medical History: Reports: Hx Depression Infectious Medical History: Reports: Hx MRSA, Hx VRE Past Surgical History: Reports: Hx Appendectomy, Hx Coronary Stent, Hx Orthopedic Surgery - L 1st toe amputation, R ankle recon, R elbow pin, L rotator cuff, Hx Tonsillectomy, Hx Vascular Surgery - IVC filter, Other - Multiple I&D's, Colonoscopy, Flip filter placement - Immunizations Hx Diphtheria, Pertussis, Tetanus Vaccination: Yes Physical Exam - Vital signs Vitals: Temp Pulse Resp BP Pulse Ox 97.9 F 80 22 H 148/68 H 97 07/05/17 19:30 07/05/17 19:30 07/05/17 19:30 07/05/17 19:30 07/05/17 19:30 Course - Vital Signs Vital signs: Temp Pulse Resp BP Pulse Ox 97.9 F 80 22 H 148/68 H 97 07/05/17 19:30 07/05/17 19:30 07/05/17 19:30 07/05/17 19:30 07/05/17 19:30 - Laboratory Result Diagrams: 07/05/17 20:40 07/05/17 20:40
[2017-07-05] MEDS ORDERED: ONDANSETRON HCL INJ/PF 4 MG/2 ML SDV IV ONE ×2 (20:53→22:34)
[2017-07-05 20:58] LABS: ABSOLUTE BASOPHILS # (AUTO) 0.1 10^3/uL (0.0-0.2); ABSOLUTE EOSINOPHILS # (AUTO) 0.1 10^3/uL (0.0-0.6); ABSOLUTE LYMPHOCYTES (AUTO) 1.4 10^3/uL (0.5-4.7); ABSOLUTE MONOCYTES (AUTO) 0.3 10^3/uL (0.1-1.4); ABSOLUTE NEUT (AUTO) 5.2 10^3/uL (1.7-8.2); EOSINOPHILS % (AUTO) 1.6 % (0-6); HEMATOCRIT 46.4 % (36.0-47.0); HEMOGLOBIN 15.8 g/dL (12.0-15.5); LYMPHOCYTES % (AUTO) 19.4 % (13-45); MEAN CORPUSCULAR HEMOGLOBIN 31.6 pg (27.0-33.4); MEAN CORPUSCULAR VOLUME 93 fl (80-97); MONOCYTES % (AUTO) 4.3 % (3-13); PLATELET COUNT 196 10^3/uL (150-450); SEGMENTED NEUTROPHILS % (AUTO) 73.7 % (42-78); TOTAL CELLS COUNTED % (AUTO) 100 %
[2017-07-05 21:44] LABS: ALANINE AMINOTRANSFERASE 101 U/L (9-52); ALKALINE PHOSPHATASE 129 U/L (38-126); ANION GAP 12 (5-19); ASPARTATE AMINO TRANSFERASE 123 U/L (14-36); BILIRUBIN,TOTAL 0.4 mg/dL (0.2-1.3); BLOOD UREA NITROGEN 19 mg/dL (7-20); CALCIUM 10.3 mg/dL (8.4-10.2); CARBON DIOXIDE 25 mmol/L (22-30); CHLORIDE 99 mmol/L (98-107); POTASSIUM 4.6 mmol/L (3.6-5.0); TOTAL PROTEIN 6.8 g/dL (6.3-8.2)
[2017-07-05 21:49] LABS: GLUCOSE 396 mg/dL (75-110)
[2017-07-05] MEDS ORDERED: NORMAL SALINE 1000 ML 1,000 ML IV ONE (22:34)
[2017-07-05] MEDS ORDERED: MORPHINE SULFATE 10 MG/ML INJ IV ONE (22:34)
--- NOTE | 2017-07-05 22:36 | ER Document Report ---
ED GI/ - General Chief Complaint: Bloody Stools Stated Complaint: BLOOD IN STOOL Time Seen by Provider: 07/05/17 20:19 Mode of Arrival: Ambulatory Notes: Patient is a 57-year-old female that comes emergency department for chief complaint of vomiting, upper abdominal pain, and diarrhea. She states that every time she eats for the past week she gets pain and vomit shortly afterwards. She states shortly after that she will have an episode of diarrhea. She states that over the past day she has noticed a few spots of bright red blood in her stool. She denies hematemesis. She denies fever or chills. Past medical history of appendectomy, peptic ulcer disease, DVTs, has a Julian filter, she is not on a blood thinner. She denies alcohol, she does smoke. TRAVEL OUTSIDE OF THE [place] IN LAST 30 DAYS: No - Related Data Allergies/Adverse Reactions: acetaminophen [From Tylenol] Adverse Reaction (Mild, Verified 07/05/17 19:07) Nausea Past Medical History - General Information source: Patient - Social History Smoking Status: Current Every Day Smoker Chew tobacco use (# tins/day): No Smoking Education Provided: Yes - <3 min Frequency of alcohol use: None Drug Abuse: None Lives with: Family Family History: Reviewed & Not Pertinent, CAD, DM, Hypertension Patient has suicidal ideation: No Patient has homicidal ideation: No - Past Medical History Cardiac Medical History: Reports: Hx Congestive Heart Failure, Hx Coronary Artery Disease, Hx Hypercholesterolemia, Hx Hypertension, Hx Pulmonary Embolism Pulmonary Medical History: Reports: Hx Asthma, Hx Bronchitis, Hx COPD, Hx Pneumonia, Hx Intubation, Hx Respiratory Failure Neurological Medical History: Reports: Hx Seizures Endocrine Medical History: Reports: Hx Diabetes Mellitus Type 2, Hx Hypothyroidism Renal/ Medical History: Denies: Hx Peritoneal Dialysis GI Medical History: Reports: Hx Gastroesophageal Reflux Disease Musculoskeltal Medical History: Reports Hx Musculoskeletal Trauma Psychiatric Medical History: Reports: Hx Depression Infectious Medical History: Reports: Hx MRSA, Hx VRE Past Surgical History: Reports: Hx Appendectomy, Hx Coronary Stent, Hx Orthopedic Surgery - L 1st toe amputation, R ankle recon, R elbow pin, L rotator cuff, Hx Tonsillectomy, Hx Vascular Surgery - IVC filter, Other - Multiple I&D's, Colonoscopy, Flip filter placement - Immunizations Hx Diphtheria, Pertussis, Tetanus Vaccination: Yes Hx Pneumococcal Vaccination: 08/01/15 Review of Systems - Review of Systems Constitutional: No symptoms reported EENT: No symptoms reported Cardiovascular: No symptoms reported Respiratory: No symptoms reported Gastrointestinal: See HPI Genitourinary: No symptoms reported Female Genitourinary: No symptoms reported Musculoskeletal: No symptoms reported Skin: No symptoms reported Hematologic/Lymphatic: No symptoms reported Neurological/Psychological: No symptoms reported Physical Exam - Vital signs Vitals: Temp Pulse Resp BP Pulse Ox 97.9 F 80 22 H 148/68 H 97 07/05/17 19:30 07/05/17 19:30 07/05/17 19:30 07/05/17 19:30 07/05/17 19:30 Interpretation: Normal - General General appearance: Appears well, Alert In distress: None - HEENT Head: Normocephalic, Atraumatic Eyes: Normal Pupils: PERRL - Respiratory Respiratory status: No respiratory distress Chest status: Nontender Breath sounds: Normal Chest palpation: Normal - Cardiovascular Rhythm: Regular Heart sounds: Normal auscultation Murmur: No - Abdominal Inspection: Normal Distension: No distension Bowel sounds: Normal Tenderness: Tender - Tenderness in the upper abdomen, worse in the epigastric and right upper quadrant area, no guarding, no rigidity, no rebound tenderness - Back Back: Normal, Nontender - Extremities General upper extremity: Normal inspection, Nontender, Normal color, Normal ROM , Normal temperature General lower extremity: Normal inspection, Nontender, Normal color, Normal ROM , Normal temperature, Normal weight bearing. No: Reji's sign - Neurological Neuro grossly intact: Yes Cognition: Normal Orientation: AAOx4 [place] Coma Scale Eye Opening: Spontaneous Jake Coma Scale Verbal: Oriented [place] Coma Scale Motor: Obeys Commands Jake Coma Scale Total: 15 Speech: Normal Motor strength normal: LUE, RUE, LLE, RLE Sensory: Normal - Psychological Associated symptoms: Normal affect, Normal mood - Skin Skin Temperature: Warm Skin Moisture: Dry Skin Color: Normal Course - Re-evaluation Re-evalutation: Patient with epigastric pain and right upper quadrant pain, suggestive of gallbladder disease. Elevated LFTs. No leukocytosis, fever, or concerning vital signs. Patient has had bowel movement without blood, has not had any black stools, I do not suspect an upper GI bleed. All the vomiting had no hematemesis. Ultrasound of the right upper quadrant and abdomen does not show obstruction, cholecystitis, or gallstones. No pancreatitis. No elevated bilirubin. Before I had the chance to go back to patient she had left the room. Patient returned the room but states that she is ready to leave. Patient had already begun drinking and she has tolerated p.o. without any difficulty. She has been given Pepcid, Carafate. I do suspect a gastritis/peptic ulcer source of her symptoms. I discussed worsening symptoms in detail with patient, she is to follow-up with gastroenterology and have an endoscopy performed, patient states satisfaction and agreement with plan. - Vital Signs Vital signs: Temp Pulse Resp BP Pulse Ox 97.9 F 80 22 H 148/68 H 97 07/05/17 19:30 07/05/17 19:30 07/05/17 19:30 07/05/17 19:30 07/05/17 19:30 - Laboratory Result Diagrams: 07/05/17 20:40 07/05/17 21:18 Laboratory results interpreted by me: 07/05/17 07/05/17 20:40 21:18 Hgb 15.8 H RDW 15.0 H Sodium 136.0 L Glucose 396 H Calcium 10.3 H AST 123 H ALT 101 H Alkaline Phosphatase 129 H Discharge - Discharge Clinical Impression: Upper abdominal pain Condition: Stable Disposition: HOME, SELF-CARE Additional Instructions: Your ultrasound shows fatty liver but no infection or obstruction. I believe your pain and symptoms are coming from your stomach and small bowel, possibly an ulcer, please take the Carafate and omeprazole as prescribed daily, avoid anti-inflammatories, smoking, alcohol, spicy food, caffeine. Start with clear fluids and progress slowly. Follow-up closely with gastroenterology referral listed for additional management. Return immediately if you worsen including vomiting, vomiting blood, black stools, return or worsening abdominal pain, or any other concerning symptoms. Prescriptions: Omeprazole 40 mg PO DAILY #30 capsule. Promethazine HCl [Phenergan 25 mg Tablet] 1 - 2 tab PO Q6H PRN #15 tablet PRN Reason: Sucralfate [Carafate 1 gm Tablet] 1 gm PO QID #40 tablet Referrals: AC HARRINGTON MD [Primary Care Provider] - Follow up as needed LYNNETTE DEWITT MD [ACTIVE STAFF] - Follow up in 3-5 days
--- NOTE | 2017-07-06 01:37 | RADIOLOGY REPORT (SQ) ---
EXAM DESCRIPTION: U/S ABDOMEN LIMITED W/O DOP CLINICAL HISTORY: 57 years, Female, RUQ and epigastric pain, vomiting with food COMPARISON: None. FINDINGS: Hydropic gallbladder, negative sonographic Moncada's test, prominent 0.7 cm diameter common duct, no intrahepatic ductal dilation, 18.6 cm mild hepatic steatosis, visualized abdominal aorta, and 10.5 cm right kidney appear otherwise of normal size, echotexture, and vascularity. No free fluid. Obscured pancreas. IMPRESSION: No acute findings. 2011 [employer]- All Rights Reserved
[2017-07-06] MEDS ORDERED: FAMOTIDINE 20 MG TABLET PO ONE (01:51)
== END 2017-07-06 02:24 | disposition home or self-care (01) ==
LOC: ER 19:04
DX: R10.10 Upper abdominal pain, unspecified (principal); K92.1 Melena; F17.200 Nicotine dependence, unspecified, uncomplicated; I50.9 Heart failure, unspecified; I25.10 Atherosclerotic heart disease of native coronary artery without angina pectoris; E78.00 Pure hypercholesterolemia, unspecified; I10 Essential (primary) hypertension; Z88.6 Allergy status to analgesic agent; Z86.711 Personal history of pulmonary embolism; Z86.14 Personal history of Methicillin resistant Staphylococcus aureus infection
CPT/HCPCS: 96376; 99284; 96361; 96374; 96375; 36415; 83690; 85025; 80053; 76705; J2270; J2405; J7030

== ENCOUNTER 2017-07-30 19:36 | Emergency (ER) | payer MEDICAID ==
[2017-07-30] MEDS ORDERED: ONDANSETRON 4 MG TAB.RAPDIS PO ONE (20:17)
[2017-07-30] MEDS ORDERED: NORMAL SALINE 1000 ML 1,000 ML IV ONE (20:17)
--- NOTE | 2017-07-30 20:19 | ER Document Report ---
ED Medical Screen (RME) - General Chief Complaint: Nausea/Vomiting/Diarrhea Stated Complaint: TROUBLE BREATHING Time Seen by Provider: 07/30/17 20:15 Mode of Arrival: Ambulatory Information source: Patient Notes: Patient presents complaining of nausea vomiting and diarrhea with left lower quadrant abdominal pain. Patient states she has had the diarrhea for the past month. Patient states that she has not had any fever or urinary symptoms. Patient states she is uncertain if there may be blood in her stool or not she has not been looking. Patient states the diarrhea worsened today which prompted her visit. Patient states she is vomited about 3 times today and had numerous bouts of diarrhea. hx: Diabetes, COPD, asthma, hypothyroid, appendectomy, orthopedic surgeries I have greeted and performed a rapid initial assessment of this patient. A comprehensive ED assessment and evaluation of the patient, analysis of test results and completion of the medical decision making process will be conducted by additional ED providers. TRAVEL OUTSIDE OF THE [place] IN LAST 30 DAYS: No - Related Data Allergies/Adverse Reactions: acetaminophen [From Tylenol] Adverse Reaction (Mild, Verified 07/30/17 19:37) Nausea Past Medical History - Past Medical History Cardiac Medical History: Reports: Hx Congestive Heart Failure, Hx Coronary Artery Disease, Hx Hypercholesterolemia, Hx Hypertension, Hx Pulmonary Embolism Pulmonary Medical History: Reports: Hx Asthma, Hx Bronchitis, Hx COPD, Hx Pneumonia, Hx Intubation, Hx Respiratory Failure Neurological Medical History: Reports: Hx Seizures Endocrine Medical History: Reports: Hx Diabetes Mellitus Type 2, Hx Hypothyroidism Renal/ Medical History: Denies: Hx Peritoneal Dialysis GI Medical History: Reports: Hx Gastroesophageal Reflux Disease Musculoskeltal Medical History: Reports Hx Musculoskeletal Trauma Psychiatric Medical History: Reports: Hx Depression Infectious Medical History: Reports: Hx MRSA, Hx VRE Past Surgical History: Reports: Hx Appendectomy, Hx Coronary Stent, Hx Orthopedic Surgery - L 1st toe amputation, R ankle recon, R elbow pin, L rotator cuff, Hx Tonsillectomy, Hx Vascular Surgery - IVC filter, Other - Multiple I&D's, Colonoscopy, Thompson filter placement - Immunizations Hx Diphtheria, Pertussis, Tetanus Vaccination: Yes Physical Exam - Vital signs Vitals: Temp Pulse Resp BP Pulse Ox 98.0 F 90 16 151/70 H 97 07/30/17 19:41 07/30/17 19:41 07/30/17 19:41 07/30/17 19:41 07/30/17 19:41 - Abdominal Tenderness: Tender - Left lower quadrant tenderness Course - Vital Signs Vital signs: Temp Pulse Resp BP Pulse Ox 98.0 F 90 16 151/70 H 97 07/30/17 19:41 07/30/17 19:41 07/30/17 19:41 07/30/17 19:41 07/30/17 19:41
[2017-07-30 21:19] LABS: ABSOLUTE BASOPHILS # (AUTO) 0.1 10^3/uL (0.0-0.2); ABSOLUTE EOSINOPHILS # (AUTO) 0.1 10^3/uL (0.0-0.6); ABSOLUTE LYMPHOCYTES (AUTO) 1.6 10^3/uL (0.5-4.7); ABSOLUTE MONOCYTES (AUTO) 0.5 10^3/uL (0.1-1.4); ABSOLUTE NEUT (AUTO) 6.1 10^3/uL (1.7-8.2); BASOPHILS % (AUTO) 0.7 % (0-2); EOSINOPHILS % (AUTO) 1.5 % (0-6); HEMATOCRIT 45.1 % (36.0-47.0); HEMOGLOBIN 15.5 g/dL (12.0-15.5); MEAN CORPUSCULAR HEMOGLOBIN 31.6 pg (27.0-33.4); MEAN CORPUSCULAR HGB CONC 34.4 g/dL (32.0-36.0); MEAN CORPUSCULAR VOLUME 92 fl (80-97); MONOCYTES % (AUTO) 5.9 % (3-13); PLATELET COUNT 274 10^3/uL (150-450); RED BLOOD COUNT 4.92 10^6/uL (3.72-5.28); RED CELL DISTRIBUTION WIDTH 14.7 % (11.5-14.0); SEGMENTED NEUTROPHILS % (AUTO) 72.9 % (42-78); TOTAL CELLS COUNTED % (AUTO) 100 %; WHITE BLOOD COUNT 8.3 10^3/uL (4.0-10.5)
[2017-07-30 21:36] LABS: ALANINE AMINOTRANSFERASE 68 U/L (9-52); ALBUMIN 4.6 g/dL (3.5-5.0); ALKALINE PHOSPHATASE 120 U/L (38-126); ANION GAP 12 (5-19); ASPARTATE AMINO TRANSFERASE 38 U/L (14-36); BILIRUBIN,DIRECT 0.3 mg/dL (0.0-0.4); BILIRUBIN,TOTAL 0.4 mg/dL (0.2-1.3); BLOOD UREA NITROGEN 16 mg/dL (7-20); CALCIUM 11.2 mg/dL (8.4-10.2); CARBON DIOXIDE 28 mmol/L (22-30); CHLORIDE 96 mmol/L (98-107); LIPASE 327.7 U/L (23-300); MAGNESIUM 1.6 mg/dL (1.6-2.3); SODIUM 136.2 mmol/L (137-145); TOTAL PROTEIN 7.6 g/dL (6.3-8.2)
[2017-07-30 21:49] LABS: GLUCOSE 498 mg/dL (75-110)
[2017-07-30 22:32] LABS: APPEARANCE,URINE CLEAR; BILIRUBIN,URINE NEGATIVE (NEGATIVE); COLOR,URINE STRAW; GLUCOSE, URINE >=500 mg/dL (NEGATIVE); KETONES,URINE NEGATIVE (NEGATIVE); LEUKOCYTE ESTERASE,URINE NEGATIVE (NEGATIVE); NITRITE,URINE NEGATIVE (NEGATIVE); PROTEIN,URINE NEGATIVE (NEGATIVE); URINE SPECIFIC GRAVITY 1.033; UROBILINOGEN,URINE NEGATIVE mg/dL (<2.0)
[2017-07-30] MEDS ORDERED: INSULIN REG, HUMAN 100 UNIT/ML 3 ML VIAL (PYX) IV ONE (23:17)
[2017-07-30 23:48] VITALS: BP 130/69
--- NOTE | 2017-07-31 00:01 | ER Document Report ---
ED General - General Chief Complaint: Nausea/Vomiting/Diarrhea Stated Complaint: TROUBLE BREATHING Time Seen by Provider: 07/30/17 20:15 Mode of Arrival: Ambulatory Notes: Patient is a 57-year-old female who presents emergency department with a chief complaint of diarrhea, epigastric pain, vomiting and dry mouth. Patient states that she has been having on and off loose stools since the middle of May. She denies any bright red blood per rectum, dark tarry stools. Patient is not on blood thinners. She denies any recent antibiotic use, hospitalization. She does have a history of gastric ulcers but is been noncompliant with primary care recommendations. She does admit to vomiting today as well as epigastric discomfort. She denies any coffee-ground emesis, hematemesis, fevers Primary care is with Dr. Harrington Past medical history significant for diabetes, COPD, hypothyroidism, history of DVT with a IVC filter, gastric ulcers, hyperlipidemia Past surgical history significant for IVC filter placement, appendectomy Social history significant for current tobacco use. Denies any alcohol, drug use. Lives at home with her TRAVEL OUTSIDE OF THE [place] IN LAST 30 DAYS: No - Related Data Allergies/Adverse Reactions: acetaminophen [From Tylenol] Adverse Reaction (Mild, Verified 07/30/17 19:37) Nausea Past Medical History - General Information source: Patient - Social History Smoking Status: Current Every Day Smoker Family History: Reviewed & Not Pertinent, CAD, DM, Hypertension Patient has suicidal ideation: No Patient has homicidal ideation: No - Past Medical History Cardiac Medical History: Reports: Hx Congestive Heart Failure, Hx Coronary Artery Disease, Hx Hypercholesterolemia, Hx Hypertension, Hx Pulmonary Embolism Pulmonary Medical History: Reports: Hx Asthma, Hx Bronchitis, Hx COPD, Hx Pneumonia, Hx Intubation, Hx Respiratory Failure Neurological Medical History: Reports: Hx Seizures Endocrine Medical History: Reports: Hx Diabetes Mellitus Type 2, Hx Hypothyroidism Renal/ Medical History: Denies: Hx Peritoneal Dialysis GI Medical History: Reports: Hx Gastroesophageal Reflux Disease Musculoskeltal Medical History: Reports Hx Musculoskeletal Trauma Psychiatric Medical History: Reports: Hx Depression Infectious Medical History: Reports: Hx MRSA, Hx VRE Past Surgical History: Reports: Hx Appendectomy, Hx Coronary Stent, Hx Orthopedic Surgery - L 1st toe amputation, R ankle recon, R elbow pin, L rotator cuff, Hx Tonsillectomy, Hx Vascular Surgery - IVC filter, Other - Multiple I&D's, Colonoscopy, Flip filter placement - Immunizations Hx Diphtheria, Pertussis, Tetanus Vaccination: Yes Hx Pneumococcal Vaccination: 08/01/15 Review of Systems - Review of Systems Constitutional: No symptoms reported Cardiovascular: No symptoms reported Respiratory: No symptoms reported Gastrointestinal: See HPI Genitourinary: No symptoms reported Musculoskeletal: No symptoms reported Neurological/Psychological: No symptoms reported -: Yes All other systems reviewed and negative Physical Exam - Vital signs Vitals: Temp Pulse Resp BP Pulse Ox 98.0 F 90 16 151/70 H 97 07/30/17 19:41 07/30/17 19:41 07/30/17 19:41 07/30/17 19:41 07/30/17 19:41 - Notes Notes: PHYSICAL EXAM GENERAL: Alert, interacts well. HEAD: Normocephalic, atraumatic. EYES: Pupils equal, round, and reactive to light. Extraocular movements intact. ENT: Oral mucosa moist, tongue midline. NECK: Full range of motion. Supple. Trachea midline. LUNGS: Clear to auscultation bilaterally, no wheezes, rales, or rhonchi. No respiratory distress. HEART: Regular rate and rhythm. No murmurs, gallops, or rubs. ABDOMEN: Soft, nondistended, epigastric tenderness radiating in the right upper quadrant. No guarding, rebound, or rigidity.. Bowel sounds present in all 4 quadrants. EXTREMITIES: Moves all 4 extremities spontaneously. No edema, radial and dorsalis pedis pulses 2/4 bilaterally. No cyanosis. NEUROLOGICAL: Alert and oriented x4. Normal speech. PSYCH: Normal affect, normal mood. SKIN: Warm, dry, normal turgor. No rashes or lesions noted. Course - Re-evaluation Re-evalutation: 07/31/17 00:58 Patient is a 57-year-old female is hemodynamically stable, no acute distress and afebrile. Sugars were treated with IV saline as well as IV insulin. No evidence of metabolic acidosis with lack of anion gap and ketonuria. Right upper quadrant ultrasound to rule out any gallbladder stones or concern for cholecystitis. Given elevation in lipase and epigastric tenderness, CT with IV contrast was ordered. Patient was about to be taken over when she stated that she just wanted to go home to get her IV and left. CT was ordered to evaluate for any focal irritation of the pancreas given physical exam The patient is alert, oriented, and able to express clearly their reasoning for not wanting to remain in the emergency department for further treatment. The patient is not clinically psychotic, intoxicated, and denies and suicidal ideation. - Vital Signs Vital signs: Temp Pulse Resp BP Pulse Ox 98.0 F 90 22 H 130/69 H 92 07/30/17 19:41 07/30/17 19:41 07/30/17 23:01 07/30/17 23:01 07/30/17 23:01 - Laboratory Result Diagrams: 07/30/17 21:10 07/30/17 21:10 Laboratory results interpreted by me: 07/30/17 07/30/17 07/30/17 21:10 21:10 22:00 RDW 14.7 H Sodium 136.2 L Chloride 96 L Glucose 498 H* POC Glucose Calcium 11.2 H AST 38 H ALT 68 H Lipase 327.7 H Urine Glucose (UA) >=500 H 07/30/17 22:43 RDW Sodium Chloride Glucose POC Glucose 354 H Calcium AST ALT Lipase Urine Glucose (UA) - Diagnostic Test Radiology reviewed: Image reviewed, Reports reviewed Discharge - Discharge Clinical Impression: Epigastric pain Diabetes mellitus Qualifiers: Diabetes mellitus type: type 2 Diabetes mellitus complication status: with hyperglycemia Diabetes mellitus chcf insulin use: with chcf use Qualified Code(s): E11.65 - Type 2 diabetes mellitus with hyperglycemia; Z79.4 - jail (current) use of insulin; Z79.4 - jail (current) use of insulin ; Z79.4 - terminal carman (current) use of insulin; Z79.4 - jail (current) use of insulin Condition: Stable Disposition: ELOPED Referrals: AC HARRINGTON MD [Primary Care Provider] - Follow up as needed
--- NOTE | 2017-07-31 00:32 | RADIOLOGY REPORT (SQ) ---
EXAM DESCRIPTION: U/S ABDOMEN LIMITED W/O DOP COMPLETED DATE/TIME: 07/30/2017 11:59 pm REASON FOR STUDY: n/v, elevated lipase COMPARISON: Right upper quadrant ultrasound 07/06/2017. TECHNIQUE: Grayscale images acquired of the abdomen and recorded on PACS. Additional selected color Doppler and spectral images recorded. LIMITATIONS: Overlying bowel gas. FINDINGS: PANCREAS: Poorly visualized due to by overlying bowel gas. LIVER: Measures 18.9 cm. Coarse echotexture, suggestive of fatty infiltration. LIVER VASCULATURE: Normal directional flow of the main portal vein. GALLBLADDER: No stones. Normal wall thickness. No pericholecystic fluid. ULTRASOUND-DETECTED BARRAZA'S SIGN: Negative. INTRAHEPATIC DUCTS AND COMMON DUCT: CBD and intrahepatic ducts normal caliber. No filling defects. INFERIOR VENA CAVA: Obscured. AORTA: No aneurysm in the visualized proximal and mid segments, the distal abdominal aorta is obscure d by overlying bowel gas. RIGHT KIDNEY: Measures 11.1 cm. Normal echogenicity. No hydronephrosis. No calcifications. PERITONEAL AND RIGHT PLEURAL SPACE: No ascites or effusion. IMPRESSION: Poorly visualized pancreas. Fatty infiltration of the liver. No cholelithiasis or bili apolonia ductal dilation. TECHNICAL DOCUMENTATION: JOB ID: [id number] [employer]- All Rights Reserved
[2017-07-31] MEDS ORDERED: GABAPENTIN 400 MG CAPSULE PO ONE (02:06)
== END 2017-07-31 02:50 | disposition left against medical advice (07) ==
LOC: ER 19:36
DX: R11.2 Nausea with vomiting, unspecified (principal); R19.7 Diarrhea, unspecified; R10.13 Epigastric pain; Z79.4 Long term (current) use of insulin; I50.9 Heart failure, unspecified; F17.200 Nicotine dependence, unspecified, uncomplicated; I25.10 Atherosclerotic heart disease of native coronary artery without angina pectoris; E78.00 Pure hypercholesterolemia, unspecified; I11.0 Hypertensive heart disease with heart failure; Z86.711 Personal history of pulmonary embolism; Z86.14 Personal history of Methicillin resistant Staphylococcus aureus infection; Z88.6 Allergy status to analgesic agent
CPT/HCPCS: 99284; 96360; 36415; 82962; 83690; 83735; 85025; 80053; 81001; 76705; S0119; J1815; J7030

== ENCOUNTER 2017-08-14 11:26 | Emergency (ER) | payer MEDICAID ==
[2017-08-14] MEDS ORDERED: IPRATROPIUM/ALBUTEROL 0.5-2.5 MG/3 ML AMPUL NEB ONE ×2 (11:52→13:31)
--- NOTE | 2017-08-14 11:53 | ER Document Report ---
ED Medical Screen (RME) - General Chief Complaint: Breathing Difficulty Stated Complaint: COUGH,CONGESTION,SHORTNESS OF BREATH Time Seen by Provider: 08/14/17 11:51 Notes: pt with cough/sob TRAVEL OUTSIDE OF THE [place] IN LAST 30 DAYS: No - Related Data Allergies/Adverse Reactions: acetaminophen [From Tylenol] Adverse Reaction (Mild, Verified 08/14/17 11:29) Nausea Past Medical History - Social History Chew tobacco use (# tins/day): No - Past Medical History Cardiac Medical History: Reports: Hx Congestive Heart Failure, Hx Coronary Artery Disease, Hx Hypercholesterolemia, Hx Hypertension, Hx Pulmonary Embolism Pulmonary Medical History: Reports: Hx Asthma, Hx Bronchitis, Hx COPD, Hx Pneumonia, Hx Intubation, Hx Respiratory Failure Neurological Medical History: Reports: Hx Seizures Endocrine Medical History: Reports: Hx Diabetes Mellitus Type 2, Hx Hypothyroidism Renal/ Medical History: Denies: Hx Peritoneal Dialysis GI Medical History: Reports: Hx Gastroesophageal Reflux Disease Musculoskeltal Medical History: Reports Hx Musculoskeletal Trauma Psychiatric Medical History: Reports: Hx Depression Infectious Medical History: Reports: Hx MRSA, Hx VRE Past Surgical History: Reports: Hx Appendectomy, Hx Coronary Stent, Hx Orthopedic Surgery - L 1st toe amputation, R ankle recon, R elbow pin, L rotator cuff, Hx Tonsillectomy, Hx Vascular Surgery - IVC filter, Other - Multiple I&D's, Colonoscopy, Flip filter placement - Immunizations Hx Diphtheria, Pertussis, Tetanus Vaccination: Yes Physical Exam - Vital signs Vitals: Temp Pulse Resp BP Pulse Ox 99.0 F 88 20 102/60 91 L 08/14/17 11:38 08/14/17 11:38 08/14/17 11:38 08/14/17 11:38 08/14/17 11:38 Course - Vital Signs Vital signs: Temp Pulse Resp BP Pulse Ox 99.0 F 88 20 102/60 91 L 08/14/17 11:38 08/14/17 11:38 08/14/17 11:38 08/14/17 11:38 08/14/17 11:38
--- NOTE | 2017-08-14 12:15 | RADIOLOGY REPORT (SQ) ---
EXAM DESCRIPTION: CHEST PA/LAT COMPLETED DATE/TIME: 08/14/2017 12:05 pm REASON FOR STUDY: sob COMPARISON: 11/21/2016 EXAM PARAMETERS: NUMBER OF VIEWS: two views TECHNIQUE: Digital Frontal and Lateral radiographic views of the chest acquired. RADIATION DOSE: NA LIMITATIONS: none FINDINGS: LUNGS AND PLEURA: No opacities, masses or pneumothorax. No pleural effusion. MEDIASTINUM AND HILAR STRUCTURES: No masses or contour abnormalities. HEART AND VASCULAR STRUCTURES: Heart normal size. No evidence for failure. BONES: No acute findings. HARDWARE: None in the chest. OTHER: No other significant finding. IMPRESSION: NO SIGNIFICANT RADIOGRAPHIC FINDING IN THE CHEST. TECHNICAL DOCUMENTATION: JOB ID: [id number] [employer]- All Rights Reserved
[2017-08-14 13:06] LABS: VENOUS BLOOD BASE EXCESS 3.1 mmol/L; VENOUS BLOOD HCO3 27.1 mmol/L (20-32); VENOUS BLOOD PCO2 39.5 mmHg (35-63); VENOUS BLOOD PH 7.45 (7.30-7.42)
[2017-08-14 13:08] LABS: HEMATOCRIT 40.7 % (36.0-47.0); HEMOGLOBIN 13.9 g/dL (12.0-15.5); MEAN CORPUSCULAR HEMOGLOBIN 31.8 pg (27.0-33.4); MEAN CORPUSCULAR HGB CONC 34.3 g/dL (32.0-36.0); MEAN CORPUSCULAR VOLUME 93 fl (80-97); PLATELET COUNT 230 10^3/uL (150-450); RED BLOOD COUNT 4.39 10^6/uL (3.72-5.28); RED CELL DISTRIBUTION WIDTH 14.8 % (11.5-14.0); WHITE BLOOD COUNT 7.1 10^3/uL (4.0-10.5)
[2017-08-14 13:19] LABS: ALANINE AMINOTRANSFERASE 69 U/L (9-52); ALBUMIN 4.2 g/dL (3.5-5.0); ALKALINE PHOSPHATASE 87 U/L (38-126); ANION GAP 13 (5-19); ASPARTATE AMINO TRANSFERASE 81 U/L (14-36); BILIRUBIN,DIRECT 0.5 mg/dL (0.0-0.4); BLOOD UREA NITROGEN 12 mg/dL (7-20); CARBON DIOXIDE 27 mmol/L (22-30); CHLORIDE 98 mmol/L (98-107); GLUCOSE 338 mg/dL (75-110); POTASSIUM 4.4 mmol/L (3.6-5.0); SODIUM 137.9 mmol/L (137-145); TOTAL PROTEIN 7.3 g/dL (6.3-8.2)
[2017-08-14 13:30] LABS: ABSOLUTE LYMPHOCYTES# (MANUAL) 0.4 10^3/uL (0.5-4.7); ABSOLUTE MONOCYTES # (MANUAL) 0.3 10^3/uL (0.1-1.4); ABSOLUTE NEUTROPHILS# (MANUAL) 6.2 10^3/uL (1.7-8.2); BAND NEUTROPHILS % (MANUAL) 3 % (3-5); BASOPHILS % (MANUAL) 0 % (0-2); EOSINOPHILS % (MANUAL) 3 % (0-6); LYMPHOCYTES % (MANUAL) 4 % (13-45); MONOCYTES % (MANUAL) 4 % (3-13); PLATELET COMMENT ADEQUATE; POLYCHROMASIA SLIGHT; SEGMENTED NEUTROPHILS % (MAN) 85 % (42-78); TOTAL CELLS COUNTED 100; TOXIC GRANULATION SLIGHT; TOXIC VACUOLATION PRESENT
--- NOTE | 2017-08-14 13:30 | ER Document Report ---
ED General - General Chief Complaint: Breathing Difficulty Stated Complaint: COUGH,CONGESTION,SHORTNESS OF BREATH Time Seen by Provider: 08/14/17 11:51 Mode of Arrival: Ambulatory Information source: Patient Notes: This is a 57-year-old female with a complicated medical history including PE ( IVC filter), COPD, diabetes, CHF, coronary artery disease, dyslipidemia, hypertension. The patient presents to the emergency room with subjective fevers , cough, worsening shortness of breath. TRAVEL OUTSIDE OF THE [place] IN LAST 30 DAYS: No - HPI Onset: Last week Onset/Duration: Gradual Quality of pain: No pain Severity: None Pain Level: Denies Associated symptoms: Chills, Nonproductive cough, Shortness of breath. denies: Fever Exacerbated by: Movement Relieved by: Remaining still Similar symptoms previously: Yes Recently seen / treated by doctor: No - Related Data Allergies/Adverse Reactions: acetaminophen [From Tylenol] Adverse Reaction (Mild, Verified 08/14/17 11:29) Nausea Past Medical History - General Information source: Patient - Social History Smoking Status: Current Every Day Smoker Cigarette use (# per day): Yes Chew tobacco use (# tins/day): No Smoking Education Provided: No - Half pack per day Frequency of alcohol use: None Drug Abuse: None Lives with: Spouse/Significant other Family History: Reviewed & Not Pertinent, CAD, DM, Hypertension Patient has suicidal ideation: No Patient has homicidal ideation: No - Past Medical History Cardiac Medical History: Reports: Hx Congestive Heart Failure, Hx Coronary Artery Disease, Hx Hypercholesterolemia, Hx Hypertension, Hx Pulmonary Embolism Pulmonary Medical History: Reports: Hx Asthma, Hx Bronchitis, Hx COPD, Hx Pneumonia, Hx Intubation, Hx Respiratory Failure Neurological Medical History: Reports: Hx Seizures Endocrine Medical History: Reports: Hx Diabetes Mellitus Type 2, Hx Hypothyroidism Renal/ Medical History: Denies: Hx Peritoneal Dialysis GI Medical History: Reports: Hx Gastroesophageal Reflux Disease Musculoskeltal Medical History: Reports Hx Musculoskeletal Trauma Psychiatric Medical History: Reports: Hx Depression Infectious Medical History: Reports: Hx MRSA, Hx VRE Past Surgical History: Reports: Hx Appendectomy, Hx Coronary Stent, Hx Orthopedic Surgery - L 1st toe amputation, R ankle recon, R elbow pin, L rotator cuff, Hx Tonsillectomy, Hx Vascular Surgery - IVC filter, Other - Multiple I&D's, Colonoscopy, [place] filter placement - Immunizations Hx Diphtheria, Pertussis, Tetanus Vaccination: Yes Hx Pneumococcal Vaccination: 08/01/15 Review of Systems - Review of Systems Notes: Review of systems: Constitutional: See H&P EENT: Denies ear pain, sinus tenderness, throat pain, throat swelling. Cardiovascular: Denies chest pain, palpitations, dyspnea or edema. Respiratory: See H&P Abdomen: Denies abdominal pain, nausea, vomiting, diarrhea. Denies BRBPR or melena. Genitourinary: Denies dysuria, pyuria, hematuria, flank pain. Musculoskeletal: denies joint pain or swelling, denies back pain. Neurologic: Denies headache, photophobia, neck stiffness, weakness. Denies loss of bowel or bladder function. Denies saddle anesthesia. Skin: Denies rash, lesions. Constitutional: Chills. denies: Fever EENT: Nose discharge Cardiovascular: Dyspnea. denies: Chest pain Respiratory: Cough, Short of breath Gastrointestinal: No symptoms reported Genitourinary: No symptoms reported Female Genitourinary: No symptoms reported Musculoskeletal: No symptoms reported Skin: No symptoms reported Hematologic/Lymphatic: No symptoms reported Neurological/Psychological: No symptoms reported Physical Exam - Vital signs Vitals: Temp Pulse Resp BP Pulse Ox 99.0 F 88 20 102/60 91 L 08/14/17 11:38 08/14/17 11:38 08/14/17 11:38 08/14/17 11:38 08/14/17 11:38 Notes: Physical exam: GENERAL: The 57-year-old female, alert and oriented 3, coughing, wheezing, appears uncomfortable. HEAD: Atraumatic, normocephalic. EYES: Pupils equal round and reactive to light, extraocular movements intact, sclera anicteric, conjunctiva are normal. ENT: TMs normal, nares patent, oropharynx clear without exudates. Moist mucous membranes. NECK: Normal range of motion, supple without obvious mass or JVD. LUNGS: Breath sounds clear to auscultation bilaterally and equal. No wheezes rales or rhonchi. HEART: Regular rate and rhythm without murmurs, rubs or gallops. ABDOMEN: Soft, normoactive bowel sounds. No tenderness to palpation. No guarding, no rebound. No masses appreciated. EXTREMITIES: Normal range of motion, no pitting or edema. No clubbing or cyanosis. NEUROLOGICAL: Cranial nerves II through XII grossly intact. Normal speech, moving all extremities. PSYCH: Normal mood, normal affect. SKIN: Warm, Dry, normal turgor, no rashes or lesions noted. Course - Re-evaluation Re-evalutation: 08/14/17 19:49 I discussed case with Dr. Harrington who knows the patient well. I discussed the patient's desire to go home. I did offer her admission given her significant medical history. However, she is ambulating around the emergency room without significant difficulty and does appear stable at this time. Dr. Harrington is willing to see the patient in the morning. I have started her on Tamiflu. I will also put her on an antibiotic given her significant underlying lung disease. She is going home with her is at the bedside. - Vital Signs Vital signs: Temp Pulse Resp BP Pulse Ox 97.5 F 85 20 110/66 89 L 08/14/17 16:48 08/14/17 16:48 08/14/17 16:48 08/14/17 16:48 08/14/17 16:48 - Laboratory Result Diagrams: 08/14/17 12:45 08/14/17 12:45 Laboratory results interpreted by me: 08/14/17 08/14/17 08/14/17 12:45 12:45 12:45 RDW 14.8 H Seg Neuts % (Manual) 85 H Lymphocytes % (Manual) 4 L Abs Lymphs (Manual) 0.4 L VBG pH 7.45 H Glucose 338 H Direct Bilirubin 0.5 H AST 81 H ALT 69 H - Diagnostic Test Radiology reviewed: Image reviewed, Reports reviewed - Chest x-ray shows no infiltrates - EKG Interpretation by Me Rate: Normal Rhythm: NSR - EKG shows normal sinus rhythm with a ventricular rate of 82, no acute ST-T wave changes Discharge - Discharge Clinical Impression: Bronchitis with bronchospasm Condition: Stable Disposition: HOME, SELF-CARE Additional Instructions: Recommendations: I did speak with Dr. Harrington and he wants to see you in the office tomorrow. In the meantime: Take the Tamiflu as prescribed 75 mg twice daily, your next dose is before bed. Take the antibiotic doxycycline: 100 mg twice daily. Take the prednisone as prescribed: Start tomorrow, you received today's dose in the ER. Return to the emergency room for worsening shortness of breath. Prescriptions: Doxycycline Hyclate 100 mg PO BID #20 capsule Oseltamivir Phosphate [Tamiflu 75 mg Capsule] 75 mg PO NOW #9 capsule Prednisone [Deltasone 20 mg Tablet] 3 tab PO DAILY 5 Days tablet Referrals: AC HARRINGTON MD [Primary Care Provider] - Follow up tomorrow (Call the office tomorrow to be seen tomorrow. I did discuss your results with Dr. Harrington who wants to see you tomorrow.)
[2017-08-14] MEDS ORDERED: OSELTAMIVIR PHOSPHATE 75 MG CAPSULE PO ONE (13:31)
[2017-08-14] MEDS ORDERED: METHYLPREDNISOLONE INJ 125 MG/2 ML SDV IV ONE (13:32)
[2017-08-14] MEDS ORDERED: ONDANSETRON HCL INJ/PF 4 MG/2 ML SDV IV ONE (13:32)
--- NOTE | 2017-08-14 14:51 | RADIOLOGY REPORT (SQ) ---
EXAM DESCRIPTION: CTA CHEST COMPLETED DATE/TIME: 08/14/2017 2:18 pm REASON FOR STUDY: sob COMPARISON: Chest x-ray dated 08/14/2017 and CTA of the chest dated May 2016 TECHNIQUE: CT scan of the chest performed using helical scanning technique with dynamic intravenous contrast injection. Images reviewed with lung, soft tissue and bone windows. Reconstructed coronal and sagittal MPR images reviewed. Additional 3 dimensional post-processing performed to develop Maximal Intensity Projection images (FL P). All images stored on PACS. All CT scanners at this facility use dose modulation, iterative reconstruction, and/or weight based d osing when appropriate to reduce radiation dose to as low as reasonably achievable (ALARA). [facility]: Dose Right [facility]: CareDose [facility]: Dose Right [facility]: Teradose 4D [facility]: [facility] CONTRAST TYPE AND DOSE: contrast/concentration: Isovue 370.00 mg/ml; Total Contrast Delivered: 80.0 ml; Total Saline Delivered: 85.1 ml Contrast bolus optimized for the pulmonary arteries. Not diagnostic for the aorta. RENAL FUNCTION: Creatinine 0.8 RADIATION DOSE: CT Rad equipment meets quality standard of care and radiation dose reduction techniq ues were employed. CTDIvol: 16.5 - 32.7 mGy. DLP: 1219 mGy-cm. . LIMITATIONS: None. FINDINGS: LUNGS AND PLEURA: There are ill-defined predominately linear densities in the left mid and lower lung field which could represent atelectatic changes or a minimal pneumonic infiltrate. The r emaining lung hogan are clear. No pleural effusions are identified. No pneumothorax is seen. AORTA AND GREAT VESSELS: No aneurysm. Contrast bolus not optimized for the aorta. HEART: No pericardial effusion. No significant coronary artery calcifications. PULMONARY ARTERIES: No emboli visualized in the main pulmonary arteries or the segmental branches. HILAR AND MEDIASTINAL STRUCTURES: No identified masses or abnormal nodes. A few scattered nonenlarge d mediastinal lymph nodes are identified. HARDWARE: None in the chest. UPPER ABDOMEN: No significant findings. Limited exam. THYROID AND OTHER SOFT TISSUES: No masses. No adenopathy. BONES: No acute or significant finding. 3D MIPS: Confirm above findings. OTHER: No other significant finding. IMPRESSION: No evidence for pulmonary embolic disease. Ill-defined predominately linear densities i n the left mid and lower lung field which could represent atelectatic changes or minimal pneumonic in filtrate. Remaining lung hogan are clear. No pleural effusions are identified. Other findings as noted above COMMENT: Quality ID # [id number]: Final reports with documentation of one or more dose reduction techniques (e.g., Automated exposure control, adjustment of the mA and/or kV according to patient size, use of iterative reconstruction technique) TECHNICAL DOCUMENTATION: JOB ID: [id number] [employer]- All Rights Reserved
[2017-08-14] MEDS ORDERED: GABAPENTIN 100 MG CAPSULE PO ONE (16:03)
[2017-08-14 16:50] VITALS: BP 110/66
--- NOTE | 2017-08-15 08:52 | EKG REPORT ---
SEVERITY:- NORMAL ECG - SINUS RHYTHM : Confirmed by: Latrice Jasso 15-Aug-2017 08:51:23
[2017-08-18 14:37] LABS: INFLUENZA A AB (SERUM) CF 1:32 (Neg:<1:8)
[2017-08-19 07:13] LABS: INFLUENZA B AB (SERUM) CF 1:16 (Neg:<1:8)
== END 2017-08-14 16:55 | disposition home or self-care (01) ==
LOC: ER 11:26
DX: J20.9 Acute bronchitis, unspecified (principal); F17.210 Nicotine dependence, cigarettes, uncomplicated; J44.9 Chronic obstructive pulmonary disease, unspecified; E11.9 Type 2 diabetes mellitus without complications; I11.0 Hypertensive heart disease with heart failure; E03.9 Hypothyroidism, unspecified; Z86.711 Personal history of pulmonary embolism; Z86.14 Personal history of Methicillin resistant Staphylococcus aureus infection
CPT/HCPCS: 93005; 94640 ×2; 99285; 96374; 96375; 36415; 87040; 86710 ×2; 85025; 80053; 82803; 83605; 83880; 71046; 71275; 93010; J2930; J3490 ×2; J2405; J7620

== ENCOUNTER → 2017-08-28 | Outpatient (CLI) | payer MEDICAID ==
[2017-08-28 16:52] LABS: ABSOLUTE EOSINOPHILS # (AUTO) 0.1 10^3/uL (0.0-0.6); ABSOLUTE LYMPHOCYTES (AUTO) 1.2 10^3/uL (0.5-4.7); ABSOLUTE MONOCYTES (AUTO) 0.6 10^3/uL (0.1-1.4); ABSOLUTE NEUT (AUTO) 6.3 10^3/uL (1.7-8.2); BASOPHILS % (AUTO) 0.5 % (0-2); HEMATOCRIT 42.1 % (36.0-47.0); HEMOGLOBIN 14.3 g/dL (12.0-15.5); LYMPHOCYTES % (AUTO) 14.5 % (13-45); MEAN CORPUSCULAR HEMOGLOBIN 31.6 pg (27.0-33.4); MEAN CORPUSCULAR HGB CONC 33.9 g/dL (32.0-36.0); MEAN CORPUSCULAR VOLUME 93 fl (80-97); MONOCYTES % (AUTO) 6.9 % (3-13); PLATELET COUNT 213 10^3/uL (150-450); RED BLOOD COUNT 4.53 10^6/uL (3.72-5.28); RED CELL DISTRIBUTION WIDTH 15.2 % (11.5-14.0); SEGMENTED NEUTROPHILS % (AUTO) 77.1 % (42-78); TOTAL CELLS COUNTED % (AUTO) 100 %; WHITE BLOOD COUNT 8.2 10^3/uL (4.0-10.5)
[2017-08-28 17:09] LABS: ALANINE AMINOTRANSFERASE 41 U/L (9-52); ALBUMIN 4.3 g/dL (3.5-5.0); ALKALINE PHOSPHATASE 73 U/L (38-126); ANION GAP 13 (5-19); ASPARTATE AMINO TRANSFERASE 38 U/L (14-36); BILIRUBIN,DIRECT 0.3 mg/dL (0.0-0.4); BILIRUBIN,TOTAL 0.6 mg/dL (0.2-1.3); BLOOD UREA NITROGEN 13 mg/dL (7-20); CALCIUM 10.1 mg/dL (8.4-10.2); CARBON DIOXIDE 26 mmol/L (22-30); CHLORIDE 104 mmol/L (98-107); GLUCOSE 178 mg/dL (75-110); POTASSIUM 4.3 mmol/L (3.6-5.0); SODIUM 143.1 mmol/L (137-145); TOTAL PROTEIN 7.2 g/dL (6.3-8.2)
--- NOTE | 2017-08-28 19:36 | RADIOLOGY REPORT (SQ) ---
EXAM DESCRIPTION: CHEST PA/LATERAL COMPLETED DATE/TIME: 08/28/2017 5:10 pm REASON FOR STUDY: COUGH COMPARISON: 08/14/2017. EXAM PARAMETERS: NUMBER OF VIEWS: two views TECHNIQUE: Digital Frontal and Lateral radiographic views of the chest acquired. RADIATION DOSE: NA LIMITATIONS: none FINDINGS: LUNGS AND PLEURA: No opacities, masses or pneumothorax. No pleural effusion. MEDIASTINUM AND HILAR STRUCTURES: No masses or contour abnormalities. HEART AND VASCULAR STRUCTURES: Heart normal size. No evidence for failure. BONES: No acute findings. HARDWARE: None in the chest. OTHER: No other significant finding. IMPRESSION: NO SIGNIFICANT RADIOGRAPHIC FINDING IN THE CHEST. TECHNICAL DOCUMENTATION: JOB ID: [id number] [employer]- All Rights Reserved Reading location - IP/workstation name: [email or web address]
--- NOTE | 2017-08-28 19:41 | RADIOLOGY REPORT (SQ) ---
EXAM DESCRIPTION: ANKLE RIGHT COMPLETE COMPLETED DATE/TIME: 08/28/2017 5:10 pm REASON FOR STUDY: PAIN IN RIGHT ANKLE AND JOINTS OF RIGHT FOOT R05 COUGH M25.571 PAIN IN RIGHT ANK LE AND JOINTS OF RIGHT FOOT COMPARISON: None. NUMBER OF VIEWS: Three views. TECHNIQUE: AP, lateral, and oblique radiographic images acquired of the right ankle. LIMITATIONS: None. FINDINGS: MINERALIZATION: Normal. BONES: No acute fracture or dislocation. 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 Hardwa re in the fibula. No worrisome bone lesions. JOINTS: No effusions. SOFT TISSUES: No soft tissue swelling. No foreign body. OTHER: No other significant finding. IMPRESSION: OLD POSTTRAUMATIC AND SURGICAL FINDINGS. OLD FRACTURE OF THE MEDIAL MALLEOLUS WITH NONU NION. NO ACUTE FINDINGS. TECHNICAL DOCUMENTATION: JOB ID: [id number] [employer]- All Rights Reserved Reading location - IP/workstation name: [email or web address]
== END ==
LOC: OD 16:10
PROVIDERS: ATTEND Physician Assistant
DX: M25.571 Pain in right ankle and joints of right foot (principal); R05 Cough
CPT/HCPCS: 36415; 71046; 80053; 85025

== ENCOUNTER 2017-09-01 07:12 | Emergency (ER) | payer MEDICAID ==
[2017-09-01] MEDS ORDERED: ONDANSETRON HCL INJ/PF 4 MG/2 ML SDV IV ONE (07:54)
[2017-09-01] MEDS ORDERED: KETOROLAC TROMETHAMINE INJ/PF 30 MG/1 ML SDV IV ONE (07:54)
[2017-09-01] MEDS ORDERED: NORMAL SALINE 1000 ML 1,000 ML IV ONE (07:54)
--- NOTE | 2017-09-01 08:02 | ER Document Report ---
ED General - General Chief Complaint: Hip Pain Stated Complaint: RIGHT LEG PAIN Time Seen by Provider: 09/01/17 07:37 Mode of Arrival: Ambulatory Information source: Patient Notes: 57 yr old female hx of PE (IVC filter), COPD, diabetes, CHF, coronary artery disease, dyslipidemia, hypertension who had cta last noting pneumonia presents with 2 separate complaints. Pt notes that she has had a productive cough since, pt also notes right sciatic pain down her leg sharp lighting pain is in the buttocks. Pt denies any calf pain or swelling. pt notes that her sob has been ongoing with her cough for the past month. TRAVEL OUTSIDE OF THE [place] IN LAST 30 DAYS: No - HPI Onset: Other Onset/Duration: Persistent Quality of pain: Achy Severity: Mild Pain Level: 1 Associated symptoms: Body/muscle aches, Productive cough, Nausea, Vomiting Exacerbated by: Movement, Coughing Relieved by: Denies Similar symptoms previously: Yes Recently seen / treated by doctor: Yes - Related Data Allergies/Adverse Reactions: acetaminophen [From Tylenol] Adverse Reaction (Mild, Verified 08/14/17 11:29) Nausea Past Medical History - Social History Smoking Status: Current Every Day Smoker Cigarette use (# per day): Yes Chew tobacco use (# tins/day): No Smoking Education Provided: No Family History: Reviewed & Not Pertinent, CAD, DM, Hypertension - Past Medical History Cardiac Medical History: Reports: Hx Congestive Heart Failure, Hx Coronary Artery Disease, Hx Hypercholesterolemia, Hx Hypertension, Hx Pulmonary Embolism Pulmonary Medical History: Reports: Hx Asthma, Hx Bronchitis, Hx COPD, Hx Pneumonia, Hx Intubation, Hx Respiratory Failure Neurological Medical History: Reports: Hx Seizures Endocrine Medical History: Reports: Hx Diabetes Mellitus Type 2, Hx Hypothyroidism Renal/ Medical History: Denies: Hx Peritoneal Dialysis GI Medical History: Reports: Hx Gastroesophageal Reflux Disease Musculoskeltal Medical History: Reports Hx Musculoskeletal Trauma Psychiatric Medical History: Reports: Hx Depression Infectious Medical History: Reports: Hx MRSA, Hx VRE Past Surgical History: Reports: Hx Appendectomy, Hx Coronary Stent, Hx Orthopedic Surgery - L 1st toe amputation, R ankle recon, R elbow pin, L rotator cuff, Hx Tonsillectomy, Hx Vascular Surgery - IVC filter, Other - Multiple I&D's, Colonoscopy, [place] filter placement - Immunizations Hx Diphtheria, Pertussis, Tetanus Vaccination: Yes Hx Pneumococcal Vaccination: 08/01/15 Review of Systems - Review of Systems Notes: REVIEW OF SYSTEMS: CONSTITUTIONAL : admits to fever EENT: Denies eye, ear, throat, or mouth pain or symptoms. Denies nasal or sinus congestion or discharge. Denies throat, tongue, or mouth swelling or difficulty swallowing. CARDIOVASCULAR: Denies chest pain. Denies palpitations or racing or irregular heart beat. Denies ankle edema. RESPIRATORY: admits to productive cough GASTROINTESTINAL: admits to nausea vomiting GENITOURINARY: Denies difficulty urinating, painful urination, burning, frequency, blood in urine, or discharge. FEMALE GENITOURINARY: Denies vaginal bleeding, heavy or abnormal periods, irregular periods. Denies vaginal discharge or odor. MUSCULOSKELETAL: admits ot right buttocks pain SKIN: Denies rash, lesions or sores. HEMATOLOGIC : Denies easy bruising or bleeding. LYMPHATIC: Denies swollen, enlarged glands. NEUROLOGICAL: Denies confusion or altered mental status. Denies passing out or loss of consciousness. Denies dizziness or lightheadedness. Denies headache. Denies weakness or paralysis or loss of use of either side. Denies problems with gait or speech. Denies sensory loss, numbness, or tingling. Denies seizures. PSYCHIATRIC: Denies anxiety or stress. Denies depression, suicidal ideation, or homicidal ideation. ALL OTHER SYSTEMS REVIEWED AND NEGATIVE. PHYSICAL EXAMINATION: GENERAL: Well-appearing, well-nourished and in no acute distress. HEAD: Atraumatic, normocephalic. EYES: Pupils equal round and reactive to light, extraocular movements intact, conjunctiva are normal. ENT: Nares patent, oropharynx clear without exudates. Moist mucous membranes. NECK: Normal range of motion, supple without lymphadenopathy LUNGS: intermittent wheezing HEART: Regular rate and rhythm without murmurs ABDOMEN: Soft, nontender, nondistended abdomen. No guarding, no rebound. No masses appreciated. Female : deferred Musculoskeletal: Normal range of motion, no pitting or edema. No cyanosis. tender pinpoint of the right sciatic nerve distribution NEUROLOGICAL: Cranial nerves grossly intact. Normal speech, normal gait. Normal sensory, motor exams PSYCH: Normal mood, normal affect. SKIN: Warm, Dry, normal turgor, no rashes or lesions noted. Dictation was performed using [employer] recognition software Physical Exam - Vital signs Vitals: Temp Pulse Resp BP Pulse Ox 99.1 F 99 16 120/64 92 09/01/17 07:22 09/01/17 07:22 09/01/17 07:22 09/01/17 07:22 09/01/17 07:22 Course - Re-evaluation Re-evalutation: 09/01/17 08:02 Given extensive medical history lab work is pending, I have low suspicion for a PE at this time given that patient is having fevers cough shortness of breath consistent since her CTA was performed. She had been discharged home on prednisone and doxycycline, patient is also noted to be complaining now of sciatic nerve pain of one-week duration she will be treated with anti- inflammatories 09/01/17 11:00 Patient's workup is quite benign, she has been sleeping throughout the ED visit , she does not appear to be in any pain at all, resting comfortably, I will discharge home on steroids with close follow-up otherwise no life-threatening issues are noted No concerns for pulmonary emboli or DVT After performing a Medical Screening Examination, I estimate there is LOW risk for EXPANDING OR RUPTURED ABDOMINAL AORTIC ANEURYSM, CAUDA EQUINA SYNDROME, EPIDURAL MASS LESION, or HERNIATED DISK CAUSING SEVERE SPINAL STENOSIS, thus I consider the discharge disposition reasonable. I have reevaluated this patient multiple times and no significant life threatening changes are noted. The patient and I have discussed the diagnosis and risks, and we agree with discharging home and close follow-up. We also discussed returning to the Emergency Department immediately if new or worsening symptoms occur with the understanding that symptoms and presentations can change. We have discussed the symptoms which are most concerning (e.g., saddle anesthesia, urinary or bowel incontinence or retention, changing or worsening pain) that necessitate immediate return. - Vital Signs Vital signs: Temp Pulse Resp BP Pulse Ox 99.1 F 99 16 120/64 92 09/01/17 07:22 09/01/17 07:22 09/01/17 07:22 09/01/17 07:22 09/01/17 07:22 - Laboratory Result Diagrams: 09/01/17 10:13 09/01/17 10:13 Laboratory results interpreted by me: 09/01/17 09/01/17 10:13 10:13 Hgb 11.9 L Hct 34.5 L RDW 14.8 H Plt Count 101 L Seg Neutrophils % 78.9 H Lymphocytes % 12.6 L Sodium 130.6 L Glucose 330 H AST 45 H ALT 63 H Total Protein 5.7 L Albumin 3.3 L - Diagnostic Test Radiology reviewed: Image reviewed, Reports reviewed - no acute abnormality Discharge - Discharge Clinical Impression: Sciatica, Chronic pain Condition: Stable Disposition: HOME, SELF-CARE Instructions: Sciatica ([facility]) Prescriptions: Prednisone [Deltasone 20 mg Tablet] 3 tab PO DAILY 5 Days tablet
--- NOTE | 2017-09-01 08:29 | RADIOLOGY REPORT (SQ) ---
EXAM DESCRIPTION: CHEST PA/LAT COMPLETED DATE/TIME: 09/01/2017 8:19 am REASON FOR STUDY: recent dx of pneumonia, sob COMPARISON: 08/14/2017 EXAM PARAMETERS: NUMBER OF VIEWS: two views TECHNIQUE: Digital Frontal and Lateral radiographic views of the chest acquired. RADIATION DOSE: NA LIMITATIONS: none FINDINGS: LUNGS AND PLEURA: Minimal chronic changes at the lung bases. No acute opacities. MEDIASTINUM AND HILAR STRUCTURES: No masses or contour abnormalities. HEART AND VASCULAR STRUCTURES: Heart normal size. No evidence for failure. BONES: No acute findings. HARDWARE: None in the chest. OTHER: No other significant finding. IMPRESSION: No acute pulmonary disease. TECHNICAL DOCUMENTATION: JOB ID: [id number] [employer]- All Rights Reserved Reading location - IP/workstation name: [email or web address]
[2017-09-01 10:25] LABS: ABSOLUTE LYMPHOCYTES (AUTO) 0.5 10^3/uL (0.5-4.7); ABSOLUTE MONOCYTES (AUTO) 0.3 10^3/uL (0.1-1.4); ABSOLUTE NEUT (AUTO) 3.3 10^3/uL (1.7-8.2); BASOPHILS % (AUTO) 0.7 % (0-2); EOSINOPHILS % (AUTO) 0.5 % (0-6); HEMATOCRIT 34.5 % (36.0-47.0); HEMOGLOBIN 11.9 g/dL (12.0-15.5); LYMPHOCYTES % (AUTO) 12.6 % (13-45); MEAN CORPUSCULAR HEMOGLOBIN 31.4 pg (27.0-33.4); MEAN CORPUSCULAR HGB CONC 34.6 g/dL (32.0-36.0); MEAN CORPUSCULAR VOLUME 91 fl (80-97); MONOCYTES % (AUTO) 7.3 % (3-13); PLATELET COUNT 101 10^3/uL (150-450); RED BLOOD COUNT 3.81 10^6/uL (3.72-5.28); RED CELL DISTRIBUTION WIDTH 14.8 % (11.5-14.0); SEGMENTED NEUTROPHILS % (AUTO) 78.9 % (42-78); TOTAL CELLS COUNTED % (AUTO) 100 %; WHITE BLOOD COUNT 4.1 10^3/uL (4.0-10.5)
[2017-09-01 10:46] LABS: ALANINE AMINOTRANSFERASE 63 U/L (9-52); ALBUMIN 3.3 g/dL (3.5-5.0); ALKALINE PHOSPHATASE 62 U/L (38-126); ANION GAP 8 (5-19); ASPARTATE AMINO TRANSFERASE 45 U/L (14-36); BILIRUBIN,DIRECT 0.1 mg/dL (0.0-0.4); BILIRUBIN,TOTAL 0.7 mg/dL (0.2-1.3); BLOOD UREA NITROGEN 20 mg/dL (7-20); CALCIUM 9.4 mg/dL (8.4-10.2); CARBON DIOXIDE 25 mmol/L (22-30); CHLORIDE 98 mmol/L (98-107); GLUCOSE 330 mg/dL (75-110); POTASSIUM 4.5 mmol/L (3.6-5.0); SODIUM 130.6 mmol/L (137-145); TOTAL PROTEIN 5.7 g/dL (6.3-8.2)
[2017-09-01 11:22] VITALS: BP 114/46
== END 2017-09-01 11:22 | disposition home or self-care (01) ==
LOC: ER 07:12
DX: M54.31 Sciatica, right side (principal); G89.29 Other chronic pain; J44.9 Chronic obstructive pulmonary disease, unspecified; R05 Cough; R50.9 Fever, unspecified; R11.2 Nausea with vomiting, unspecified; E11.9 Type 2 diabetes mellitus without complications; I25.10 Atherosclerotic heart disease of native coronary artery without angina pectoris; I10 Essential (primary) hypertension; F17.210 Nicotine dependence, cigarettes, uncomplicated; Z86.711 Personal history of pulmonary embolism; Z87.01 Personal history of pneumonia (recurrent)
CPT/HCPCS: 99284; 96361; 96374; 96375; 36415; 85025; 80053; 71046; J1885; J2405; J7030

== ENCOUNTER → 2017-09-05 | Outpatient (CLI) | payer MEDICAID ==
[2017-09-05 18:38] LABS: APPEARANCE,URINE CLEAR; BILIRUBIN,URINE NEGATIVE (NEGATIVE); COLOR,URINE STRAW; GLUCOSE, URINE >=500 mg/dL (NEGATIVE); KETONES,URINE NEGATIVE (NEGATIVE); LEUKOCYTE ESTERASE,URINE NEGATIVE (NEGATIVE); NITRITE,URINE NEGATIVE (NEGATIVE); PROTEIN,URINE NEGATIVE (NEGATIVE); URINE SPECIFIC GRAVITY 1.031; UROBILINOGEN,URINE NEGATIVE mg/dL (<2.0)
[2017-09-05 18:48] LABS: ABSOLUTE BASOPHILS # (AUTO) 0.1 10^3/uL (0.0-0.2); ABSOLUTE EOSINOPHILS # (AUTO) 0.1 10^3/uL (0.0-0.6); ABSOLUTE LYMPHOCYTES (AUTO) 1.7 10^3/uL (0.5-4.7); ABSOLUTE MONOCYTES (AUTO) 0.6 10^3/uL (0.1-1.4); EOSINOPHILS % (AUTO) 1.6 % (0-6); HEMATOCRIT 37.6 % (36.0-47.0); HEMOGLOBIN 12.7 g/dL (12.0-15.5); LYMPHOCYTES % (AUTO) 26.1 % (13-45); MEAN CORPUSCULAR HEMOGLOBIN 31.1 pg (27.0-33.4); MEAN CORPUSCULAR HGB CONC 33.8 g/dL (32.0-36.0); MEAN CORPUSCULAR VOLUME 92 fl (80-97); PLATELET COUNT 168 10^3/uL (150-450); RED BLOOD COUNT 4.08 10^6/uL (3.72-5.28); RED CELL DISTRIBUTION WIDTH 14.7 % (11.5-14.0); SEGMENTED NEUTROPHILS % (AUTO) 62.3 % (42-78); TOTAL CELLS COUNTED % (AUTO) 100 %; WHITE BLOOD COUNT 6.4 10^3/uL (4.0-10.5)
[2017-09-05 19:00] LABS: ANION GAP 11 (5-19); BLOOD UREA NITROGEN 24 mg/dL (7-20); CALCIUM 9.6 mg/dL (8.4-10.2); CARBON DIOXIDE 26 mmol/L (22-30); CHLORIDE 99 mmol/L (98-107); POTASSIUM 4.5 mmol/L (3.6-5.0); SODIUM 136.1 mmol/L (137-145)
[2017-09-05 19:23] LABS: GLUCOSE 444 mg/dL (75-110)
--- NOTE | 2017-09-05 21:57 | EKG REPORT ---
SEVERITY:- NORMAL ECG - SINUS RHYTHM : Confirmed by: Latrice Jasso 05-Sep-2017 21:56:53
== END ==
LOC: OD 16:35
PROVIDERS: ATTEND Orthopaedic Surgery
DX: Z01.810 Encounter for preprocedural cardiovascular examination (principal); Z01.812 Encounter for preprocedural laboratory examination; Z01.818 Encounter for other preprocedural examination
CPT/HCPCS: 36415; 80048; 81001; 83036; 85025; 93005; 93010

== ENCOUNTER 2017-09-09 06:49 | Day surgery (SDC) | payer MEDICAID ==
--- NOTE | 2017-09-06 13:30 | RADIOLOGY REPORT (SQ) ---
EXAM DESCRIPTION: CHEST PA/LATERAL COMPLETED DATE/TIME: 09/06/2017 11:29 am REASON FOR STUDY: PRE-OP COMPARISON: 09/01/2017 EXAM PARAMETERS: NUMBER OF VIEWS: two views TECHNIQUE: Digital Frontal and Lateral radiographic views of the chest acquired. RADIATION DOSE: NA LIMITATIONS: none FINDINGS: LUNGS AND PLEURA: No opacities, masses or pneumothorax. No pleural effusion. MEDIASTINUM AND HILAR STRUCTURES: No masses or contour abnormalities. HEART AND VASCULAR STRUCTURES: Heart normal size. No evidence for failure. BONES: No acute findings. HARDWARE: None in the chest. OTHER: No other significant finding. IMPRESSION: NO SIGNIFICANT RADIOGRAPHIC FINDING IN THE CHEST. TECHNICAL DOCUMENTATION: JOB ID: [id number] [employer]- All Rights Reserved Reading location - IP/workstation name: [email or web address]
--- NOTE | 2017-09-08 21:41 | EKG REPORT ---
SEVERITY:- ABNORMAL ECG - SINUS RHYTHM NONSPECIFIC T ABNORMALITIES, LATERAL LEADS : Confirmed by: Latrice Jasso 08-Sep-2017 21:41:06
[~2017-09-09 06:49] MED LIST: CEFAZOLIN 2 GM/D5W RTU 2 GM/50 ML RTUPB IV PRN; LACTATED RINGERS 1000 ML IV PRN; LIDOCAINE 0.5% INJ-PF (5 MG/ML) 50 ML SDV SUBCUT PRN
[2017-09-09] MEDS ORDERED: FENTANYL CITRATE INJ/PF 100 MCG/2 ML AMPUL ONE (08:28)
[2017-09-09] MEDS ORDERED: EPHEDRINE SULFATE INJ 50 MG/1 ML AMPULE ONE (08:28)
[2017-09-09] MEDS ORDERED: MIDAZOLAM 2 MG/2 ML INJ ONE (08:28)
[2017-09-09] MEDS ORDERED: KETAMINE HCL INJ 500 MG/10 ML VIAL ONE (08:28)
[2017-09-09] MEDS ORDERED: PROPOFOL INJ 200 MG/20 ML VIAL IV ONE (08:29)
[2017-09-09] MEDS ORDERED: BUPIVACAINE HCL 0.5 % INJ/PF 30 ML SDV ONE (08:30)
[2017-09-09] MEDS ORDERED: LIDOCAINE 1% INJ-PF (10 MG/ML) 30 ML SDV ONE (08:30)
--- NOTE | 2017-09-09 09:19 | Operative Report ---
Operative Report DATE OF SURGERY: 09/09/17 PREOPERATIVE DIAGNOSIS: Diabetic ulcer/necrosis left third toe OPERATION: Left third toe MTP disarticulation SURGEON: NIELS SAVAGE ANESTHESIA: LMAC TISSUE REMOVED OR ALTERED: Toe to pathology ESTIMATED BLOOD LOSS: Minimal PROCEDURE: With the patient supine Afrin table left foot was prepped and draped in sterile fashion. A digital block is he is performed using a combination of Xylocaine and Marcaine about the third toe. Subsequently a tennis racquet type incision is made around the base of the third toe. Sharp dissection was used to carry the incision down to the MTP joint. This was disarticulated using 15 blade. The wound is irrigated. Hemostasis obtained with electrocautery. The wound was reapproximated with interrupted 3-0 nylon. A sterile compressive dressing was applied and the patient's return to the PACU in satisfactory condition.
[2017-09-09] MEDS ORDERED: PROMETHAZINE HCL INJ 25 MG/1 ML VIAL IV PRN (09:23)
[2017-09-09] MEDS ORDERED: DIPHENHYDRAMINE HCL 50 MG/ML VIAL IV PRN (09:23)
[2017-09-09] MEDS ORDERED: ONDANSETRON HCL INJ/PF 4 MG/2 ML SDV IV PRN (09:23)
[2017-09-09] MEDS ORDERED: FENTANYL CITRATE INJ/PF 100 MCG/2 ML AMPUL IV PRN ×2 (09:23)
[2017-09-09] MEDS ORDERED: HYDROCODONE/ACETAMINOPHEN 5-325 MG TABLET PO PRN (10:25)
[2017-09-09] MEDS ORDERED: ONDANSETRON 4 MG TAB.RAPDIS PO PRN (10:26)
[2017-09-09 10:37] VITALS: BP 128/77
[2017-09-09] MEDS ORDERED: ONDANSETRON 4 MG TAB.RAPDIS SL PRN (10:45)
[2017-09-09] MEDS ORDERED: LIDOCAINE 2% INJ-PF (20 MG/ML) 2 ML AMPUL ONE (14:58)
[2017-09-09] MEDS ORDERED: GLYCOPYRROLATE INJ 0.4 MG/2 ML VIAL ONE (14:58)
[2017-09-09] MEDS ORDERED: ONDANSETRON HCL INJ/PF 4 MG/2 ML SDV ONE (14:58)
== END 2017-09-09 11:25 | disposition home or self-care (01) ==
LOC: OROUT 06:49
PROVIDERS: ATTEND Orthopaedic Surgery
PROC: 0Y6U0Z0 Detachment at Left 3rd Toe, Complete, Open Approach (ICD-10-PCS; principal; 2017-09-09 08:45)
DX: E11.621 Type 2 diabetes mellitus with foot ulcer (principal); L97.528 Non-pressure chronic ulcer of other part of left foot with other specified severity; M86.172 Other acute osteomyelitis, left ankle and foot; F17.210 Nicotine dependence, cigarettes, uncomplicated; M54.9 Dorsalgia, unspecified; G89.29 Other chronic pain; J44.9 Chronic obstructive pulmonary disease, unspecified; G47.33 Obstructive sleep apnea (adult) (pediatric); E66.9 Obesity, unspecified; Z79.51 Long term (current) use of inhaled steroids; Z79.4 Long term (current) use of insulin; Z88.6 Allergy status to analgesic agent; Z79.84 Long term (current) use of oral hypoglycemic drugs
CPT/HCPCS: 93005; 82962; 88307 ×2; 88311; 71046; 93010; 28820; J2250; J3490 ×5; J3010; J2405; J2704; J0690; 1480

== ENCOUNTER 2017-11-01 15:38 | Emergency (ER) | payer MEDICAID ==
[2017-11-01 15:50] VITALS: BP 130/67
--- NOTE | 2017-11-01 17:07 | ER Document Report ---
HPI - HPI Patient complains to provider of: headache Onset: Other - 4 days Onset/Duration: Persistent Quality of pain: Achy Pain Level: 5 Context: Patient presents complaining of migraine headache for the past 4 days. Patient states she also has chronic back pain for which she normally takes Nucynta. Patient saw her a management doctor 2 days ago to get her refill of her Nucynta. Patient states that her last dose of Nucynta was 2 days ago. Patient states that her pain management doctor increased her dose and she did not realize that she was going to require a prior authorization before being able to fill her medication. Patient states that she typically gets migraine headaches about 2 times a week and this is typical of her usual migraines. Patient does report some light sensitivity. Patient denies any fever. Patient drove herself here today and is requesting something for pain. Associated Symptoms: Headache, Other - Chronic back pain. denies: Fever, Nausea , Vomiting Exacerbated by: Movement Relieved by: Denies Similar symptoms previously: Yes Recently seen / treated by doctor: Yes - ROS ROS below otherwise negative: Yes Systems Reviewed and Negative: Yes All other systems reviewed and negative - CONSTITUTIONAL Constitutional: DENIES: Fever, Chills - NEURO Neurology: REPORTS: Headache. DENIES: Weakness, Dizzinesss / Vertigo - GASTROINTESTINAL Gastrointestinal: DENIES: Nausea, Patient vomiting - REPRODUCTIVE Reproductive: DENIES: : - MUSCULOSKELETAL Musculoskeletal: REPORTS: Back Pain - DERM Skin Color: Normal Skin Problems: None Past Medical History - General Information source: Patient - Social History Smoking Status: Current Every Day Smoker Smoking Education Provided: Yes Frequency of alcohol use: None Drug Abuse: None Occupation: Housekeeping Family History: Reviewed & Not Pertinent, CAD, DM, Hypertension - Past Medical History Cardiac Medical History: Reports: Hx Congestive Heart Failure, Hx Coronary Artery Disease, Hx Hypercholesterolemia, Hx Hypertension, Hx Pulmonary Embolism Pulmonary Medical History: Reports: Hx Asthma, Hx Bronchitis, Hx COPD, Hx Pneumonia, Hx Intubation, Hx Respiratory Failure Neurological Medical History: Reports: Hx Seizures Endocrine Medical History: Reports: Hx Diabetes Mellitus Type 2, Hx Hypothyroidism Renal/ Medical History: Denies: Hx Peritoneal Dialysis GI Medical History: Reports: Hx Gastroesophageal Reflux Disease Musculoskeltal Medical History: Reports Hx Musculoskeletal Trauma Psychiatric Medical History: Reports: Hx Depression Infectious Medical History: Reports: Hx MRSA, Hx VRE Past Surgical History: Reports: Hx Appendectomy, Hx Coronary Stent, Hx Orthopedic Surgery - L 1st toe amputation, R ankle recon, R elbow pin, L rotator cuff, Hx Tonsillectomy, Hx Vascular Surgery - IVC filter, Other - Multiple I&D's, Colonoscopy, Flip filter placement - Immunizations Hx Diphtheria, Pertussis, Tetanus Vaccination: Yes Hx Pneumococcal Vaccination: 08/01/15 Vertical Provider Document - CONSTITUTIONAL Agree With Documented VS: Yes Exam Limitations: No Limitations General Appearance: WD/WN, No Apparent Distress - INFECTION CONTROL TRAVEL OUTSIDE OF THE [place] IN LAST 30 DAYS: No - HEENT HEENT: Atraumatic, Normal ENT Exam, Normocephalic, PERRLA Notes: No meningismus - NECK Neck: Normal Inspection, Supple. negative: Lymphadenopathy-Left, Lymphadenopathy-Right - RESPIRATORY Respiratory: Breath Sounds Normal, No Respiratory Distress - CARDIOVASCULAR Cardiovascular: Regular Rate, Regular Rhythm - BACK Back: Normal Inspection - MUSCULOSKELETAL/EXTREMETIES Musculoskeletal/Extremeties: MAEW, FROM - NEURO Level of Consciousness: Awake, Alert, Appropriate Motor/Sensory: No Motor Deficit Notes: No focal neurologic deficit - DERM Integumentary: Warm, Dry, No Rash Course - Re-evaluation Re-evalutation: 11/01/17 17:04 Controlled substance database reviewed. Consulted with Dr. Jackson regarding patient's pain management. Advises giving patient a prescription of tramadol to cover over the weekend until she can follow up with her pain management doctor Saturday. The patient presents with headache without signs of BOAT CLEANER bleed, stroke, infection, or other serious etiology. The patient is neurologically intact. Given the extremely low risk of these diagnoses further testing and evaluation for these possibilities does not appear to be indicated at this time. The patient has been instructed to return if the symptoms worsen or change in any way. 11/01/17 17:16 Provider went into room to update patient, patient not in the room and not in the immediate area. Provider called patient to find out if she had eloped. Patient states that yes she left. Patient advised that she had discharge paperwork and a prescription here, patient stated something that was muffled and unintelligible and hung up the phone. RN advised - Vital Signs Vital signs: Temp Pulse Resp BP Pulse Ox 98.3 F 91 18 130/67 H 94 11/01/17 15:49 11/01/17 15:49 11/01/17 15:49 11/01/17 15:49 11/01/17 15:49 Discharge - Discharge Clinical Impression: Headache Qualifiers: Headache type: unspecified Headache chronicity pattern: unspecified pattern Intractability: not intractable Qualified Code(s): R51 - Headache Chronic back pain Qualifiers: Back pain location: back pain in unspecified location Back pain laterality: unspecified Qualified Code(s): M54.9 - Dorsalgia, unspecified Condition: Stable Disposition: ELOPED Instructions: Headache ([facility]) Additional Instructions: Return immediately for any new or worsening symptoms Followup with your primary care provider, call tomorrow to make a followup appointment Follow-up with your pain management doctor on Saturday for recheck Prescriptions: Tramadol HCl [Ultram 50 mg Tablet] 50 mg PO ASDIR PRN #20 tablet PRN Reason: Forms: Smoking Cessation Education, Return to Work Referrals: AC HARRINGTON MD [Primary Care Provider] - Follow up as needed
== END 2017-11-01 17:16 | disposition left against medical advice (07) ==
LOC: ER 15:38
DX: G43.909 Migraine, unspecified, not intractable, without status migrainosus (principal); M54.9 Dorsalgia, unspecified; G89.29 Other chronic pain; F17.200 Nicotine dependence, unspecified, uncomplicated; I25.10 Atherosclerotic heart disease of native coronary artery without angina pectoris; I10 Essential (primary) hypertension; J44.9 Chronic obstructive pulmonary disease, unspecified; E11.9 Type 2 diabetes mellitus without complications; Z95.5 Presence of coronary angioplasty implant and graft; Z53.20 Procedure and treatment not carried out because of patient's decision for unspecified reasons
CPT/HCPCS: 99281